=== PATIENT | female | born 1975 | race Caucasian/White ===

== ENCOUNTER 2017-03-19 07:11 | Inpatient (IN) | payer BC ==
[~2017-03-19] VITALS: Ht 165.1 cm; Wt 108.9 kg
[2017-03-19] MEDS ORDERED: MORPHINE SULFATE 4 MG/ML CPJ (NOT FOR IM USE) IV STA ×2 (15:37→19:51)
[2017-03-19] MEDS ORDERED: SODIUM CHLORIDE 0.9% 1,000 ML IV ONE (15:37)
[2017-03-19 16:11] LABS: BASOPHILS % 1.3 % (0.0-2.0); CHLORIDE 117 mEq/L (98-107); EOSINOPHILS % 5.4 % (0.0-5.0); HEMATOCRIT. 23.8 % (36.0-48.0); HEMOGLOBIN. 7.7 g/dL (12.0-16.0); INR 1.2; LYMPHOCYTES % 14.2 % (20.0-50.0); MEAN CORPUSCULAR HEMOGLOBIN 27.2 pg (28.0-32.0); MEAN CORPUSCULAR VOLUME 83.6 fL (81.0-99.0); MEAN PLATELET VOLUME 8.5 fl (7.4-10.4); MONOCYTES % 6.6 % (2.0-8.0); NEUTROPHILS % 72.5 % (40.0-76.0); PLATELET 144 x1000/uL (130-400); PROTHROMBIN TIME 12.1 sec (9.4-11.6); RED BLOOD CELL COUNT 2.84 mill/uL (4.2-5.4)
[2017-03-19 16:19] LABS: CARBON DIOXIDE 17 mEq/L (21-32)
[2017-03-19] MEDS ORDERED: MORPHINE SULFATE 10 MG/ML CPJ IV NR ×2 (16:45→20:22)
[2017-03-19 19:07] LABS: PHOSPHORUS 3.9 mg/dL (2.5-4.9)
[2017-03-19 19:11] LABS: BG CARBOXYHEMOGLOBIN 0.2 % (0.5-1.5); BG DEOXYHEMOGLOBIN 6.1 % (0.0-5.0); BG FRACTION INSPIRED OXYGEN 21; BG HCO3 ACT 16.1 mmol/L (22.0-26.0); BG OXYGEN SATURATION 93.9 % (92.0-98.5); BG OXYHEMOGLOBIN 93.7 % (94.0-97.0); BG PCO2 31.5 mmHg (35.0-45.0); BG PH 7.327 (7.350-7.450); BG PO2 76.9 mmHg (75.0-100.0); BG SAMPLE SITE LEFT BRACHIAL; BG TOTAL HEMOGLOBIN 7.4 g/dL (12.0-18.0); BG VENT MODE ROOM AIR
[2017-03-19] MEDS ORDERED: ACETAMINOPHEN 325MG TABLET PO PRN (20:30)
[2017-03-19] MEDS ORDERED: DOCUSATE SODIUM 100MG CAPSULE PO PRN (20:30)
[2017-03-19] MEDS ORDERED: PIPERACILLIN/TAZ 3.375G PREMIX 50 ML IV SCH (20:30)
[2017-03-19] MEDS ORDERED: MAGNESIUM/ALUMINUM HYDROXIDE/SIMETHICONE 30ML UDC PO PRN (20:30)
[2017-03-19] MEDS ORDERED: IPRATROPIUM/ALBUTEROL 0.5-3(2.5)MG/3ML NEB INH PRN (20:30)
[2017-03-19] MEDS ORDERED: CLONIDINE 0.1MG TABLET PO PRN (20:30)
[2017-03-19] MEDS ORDERED: ONDANSETRON HCL 4MG/2ML VIAL IV PRN (20:30)
[2017-03-19 21:08] LABS: CLARITY URINE CLEAR (CLEAR); COLOR URINE YELLOW (YELLOW); GLUCOSE URINE NEGATIVE (NEGATIVE); KETONES URINE NEGATIVE (NEGATIVE); LEUKOCYTE ESTERASE URINE TRACE (NEGATIVE); NITRITE URINE NEGATIVE (NEGATIVE); OCCULT BLOOD URINE TRACE (NEGATIVE); PROTEIN URINE 1+ (NEGATIVE); SPECIFIC GRAVITY URINE 1.022 (1.005-1.030); UROBILINOGEN URINE 0.2 E.U./dL (0.2-1.0)
[2017-03-19 21:29] LABS: *AMPHETAMINES SCREEN URINE NEGATIVE (NEGATIVE); *BARBITURATES SCREEN URINE NEGATIVE (NEGATIVE); *BENZODIAZEPINES SCREEN URINE NEGATIVE (NEGATIVE); *COCAINE SCREEN URINE NEGATIVE (NEGATIVE); CANNABINOID URINE SCREEN NEGATIVE (NEGATIVE); METHADONE URINE SCREEN NEGATIVE (NEGATIVE); OPIATES URINE SCREEN NEGATIVE (NEGATIVE); PHENCYCLIDINE URINE SCREEN NEGATIVE (NEGATIVE)
[2017-03-19 23:05] VITALS: BP 134/75
[2017-03-20] MEDS: SODIUM CHLORIDE 0.9% 1,000 ML IV SCH ×2 (02:05→16:15)
[2017-03-20] MEDS: HYDROCODONE/ACETAMINOPHEN 5/325MG TABLET PO PRN ×3 (02:05→17:41)
[2017-03-20 04:00] VITALS: BP 144/86
[2017-03-20] MEDS: PIPERACILLIN/TAZ 3.375G PREMIX 50 ML IV SCH ×2 (04:09→11:50)
[2017-03-20] MEDS ORDERED: LORAZEPAM 0.5MG TABLET PO PRN (05:00)
[2017-03-20 08:00] VITALS: BP 111/52
[2017-03-20 12:00] VITALS: BP 152/85
[2017-03-20] MEDS ORDERED: HYDR4TAB4 PO (12:08)
[2017-03-20] MEDS ORDERED: METO25TA6 PO (12:08)
[2017-03-20] MEDS ORDERED: HYDR200T PO (12:08)
[2017-03-20] MEDS ORDERED: PANT40TA4 PO (12:08)
[2017-03-20] MEDS ORDERED: PARO-41 PO (12:08)
[2017-03-20] MEDS ORDERED: LEVE500T19 PO (12:08)
[2017-03-20] MEDS ORDERED: [UNRECOGNIZED DRUG - CODE] SQ (12:08)
[2017-03-20] MEDS ORDERED: ONDA8TAB6 PO (12:08)
[2017-03-20] MEDS ORDERED: COLL30OI TP (12:08)
[2017-03-20] MEDS ORDERED: TEMA15CA PO (12:08)
[2017-03-20] MEDS ORDERED: CLON0.1T PO (12:08)
[2017-03-20] MEDS ORDERED: NIFE60TA64 PO (12:08)
[2017-03-20] MEDS ORDERED: LORA0.5T2 PO (12:08)
[2017-03-20] MEDS ORDERED: PENT400T2 PO ×2 (12:08)
[2017-03-20] MEDS ORDERED: PENTOXIFYLLINE 400MG TABLET PO SCH (12:15)
[2017-03-20] MEDS ORDERED: HYDROXYCHLOROQUINE SULFATE 200MG TABLET PO SCH (12:15)
[2017-03-20] MEDS ORDERED: NIFEDIPINE XL 60MG TAB PO SCH (12:15)
[2017-03-20] MEDS ORDERED: HYDROMORPHONE HCL 4MG TABLET PO SCH ×2 (12:15→18:00)
[2017-03-20] MEDS ORDERED: PAROXETINE HCL 20MG TABLET PO SCH (12:15)
[2017-03-20] MEDS ORDERED: METOPROLOL TARTRATE 25MG TABLET PO SCH (12:15)
[2017-03-20] MEDS ORDERED: LEVETIRACETAM 500MG TABLET PO SCH (12:15)
[2017-03-20] MEDS ORDERED: PANTOPRAZOLE 40MG DR TABLET PO SCH (12:15)
[2017-03-20] MEDS ORDERED: ONDANSETRON HCL 4MG TABLET PO SCH (12:30)
[2017-03-20] MEDS ORDERED: DIPHENHYDRAMINE 25MG CAPSULE PO PRN (13:00)
[2017-03-20] MEDS: LORAZEPAM 0.5MG TABLET PO SCH ×2 (13:16→16:16)
[2017-03-20] MEDS ORDERED: ASPIRIN 81MG TABLET PO SCH (13:30)
[2017-03-20] MEDS ORDERED: CITRIC ACID/SODIUM CITRATE SOLN 30ML UDC PO SCH (13:30)
[2017-03-20 16:00] VITALS: BP 111/81
[2017-03-20 17:41] VITALS: BP 111/81
[2017-03-20] MEDS ORDERED: HYDROMORPHONE HCL 4MG TABLET PO PRN (18:00)
[2017-03-20] MEDS ORDERED: CLONIDINE 0.1MG TABLET PO SCH (21:00)
[2017-03-20] MEDS ORDERED: FONDAPARINUX SODIUM SQ SCH (21:00)
[2017-03-20] MEDS ORDERED: TEMAZEPAM 15MG CAPSULE PO SCH (21:00)
[2017-03-22 06:12] LABS: COMPLEMENT C3 36 mg/dL (82-167)
== END 2017-03-20 18:15 | disposition left against medical advice (07) | DRG 683 ==
LOC: ER 09:08 → EDBEDREQTM 19:36 → EDBEDREQ 19:36 → 5WST 19:36 → ENRESERV 19:55 → UNDODISIN 23:10
PROVIDERS: ADMIT Internal Medicine; ATTEND Internal Medicine
DX: N17.9 Acute kidney failure, unspecified (principal); D68.61 Antiphospholipid syndrome; E87.2 Acidosis; D64.9 Anemia, unspecified; M32.9 Systemic lupus erythematosus, unspecified; I10 Essential (primary) hypertension; Z74.01 Bed confinement status; Z86.718 Personal history of other venous thrombosis and embolism; Z90.710 Acquired absence of both cervix and uterus; Z90.49 Acquired absence of other specified parts of digestive tract; Z88.0 Allergy status to penicillin; Z88.8 Allergy status to other drugs, medicaments and biological substances; Z79.899 Other long term (current) drug therapy
CPT/HCPCS: 36415; 36600; 71010; 80048; 80053; 80305; 81001; 82375; 82805; 83735; 84100; 85025; 85610; 85651; 86140; 86160; 87040; 87070; 87205; 93970; 96374; 96376; 99285; C1893; J2270; J2543; J7030; Q0162; Q0163

== ENCOUNTER 2017-04-18 18:11 | Inpatient (IN) | payer BC ==
[~2017-04-18] VITALS: Ht 165.1 cm; Wt 106.1 kg
[~2017-04-18 18:11] MED LIST: CLON0.1T PO; COLL30OI TP; HYDR200T PO; HYDR4TAB4 PO; LEVE500T19 PO; LORA0.5T2 PO; METO25TA6 PO; NIFE60TA64 PO; ONDA8TAB6 PO; PANT40TA4 PO; PARO-41 PO; PENT400T2 PO; TEMA15CA PO; [UNRECOGNIZED DRUG - CODE] SQ
[2017-04-18] MEDS ORDERED: ALTEPLASE IV STA (19:13)
[2017-04-18] MEDS ORDERED: ALTEPLASE 100MG/VIAL IV STA (19:13)
[2017-04-18 19:35] LABS: BASOPHILS % 1.4 % (0.0-2.0); EOSINOPHILS % 5.3 % (0.0-5.0); HEMATOCRIT. 27.6 % (36.0-48.0); HEMOGLOBIN. 9.1 g/dL (12.0-16.0); LYMPHOCYTES % 15.8 % (20.0-50.0); MEAN CORPUSCULAR HEMOGLOBIN 27.2 pg (28.0-32.0); MEAN CORPUSCULAR VOLUME 82.4 fL (81.0-99.0); MEAN PLATELET VOLUME 8.3 fl (7.4-10.4); MONOCYTES % 9.5 % (2.0-8.0); PLATELET 123 x1000/uL (130-400); RED BLOOD CELL COUNT 3.35 mill/uL (4.2-5.4); RED CELL DISTRIBUTION WIDTH 16.4 % (11.6-14.6)
[2017-04-18 19:41] LABS: CHLORIDE 110 mEq/L (98-107)
[2017-04-18] MEDS ORDERED: ASPIRIN 325MG EC TABLET PO ONE (19:45)
[2017-04-18 19:46] LABS: CARBON DIOXIDE 23 mEq/L (21-32)
[2017-04-18 19:50] LABS: AMMONIA < 25 uMol/L (<32); ETHANOL BLOOD < 10 mg/dL
[2017-04-18 19:53] LABS: TROPONIN I 0.19 ng/mL (0.00-0.04)
[2017-04-18 20:42] LABS: *AMPHETAMINES SCREEN URINE NEGATIVE (NEGATIVE); *BARBITURATES SCREEN URINE NEGATIVE (NEGATIVE); *COCAINE SCREEN URINE NEGATIVE (NEGATIVE); CANNABINOID URINE SCREEN NEGATIVE (NEGATIVE); METHADONE URINE SCREEN NEGATIVE (NEGATIVE); PHENCYCLIDINE URINE SCREEN NEGATIVE (NEGATIVE)
[2017-04-18 20:45] LABS: *BENZODIAZEPINES SCREEN URINE PRESUMTIVE POSITIVE (NEGATIVE); OPIATES URINE SCREEN PRESUMTIVE POSITIVE (NEGATIVE)
[2017-04-18] MEDS ORDERED: ONDANSETRON HCL 4MG/2ML VIAL IV PRN (22:45)
[2017-04-18] MEDS ORDERED: IPRATROPIUM/ALBUTEROL 0.5-3(2.5)MG/3ML NEB INH PRN (22:45)
[2017-04-18] MEDS ORDERED: HYDROCODONE/ACETAMINOPHEN 5/325MG TABLET PO PRN (22:45)
[2017-04-18] MEDS ORDERED: ACETAMINOPHEN 325MG TABLET PO PRN (22:45)
[2017-04-18] MEDS ORDERED: MAGNESIUM/ALUMINUM HYDROXIDE/SIMETHICONE 30ML UDC PO PRN (22:45)
[2017-04-18] MEDS ORDERED: GUAIFENESIN 200MG/10ML SUGAR FREE UDC PO PRN (22:45)
[2017-04-18] MEDS ORDERED: CLONIDINE 0.1MG TABLET PO PRN (22:45)
[2017-04-18] MEDS ORDERED: ENOXAPARIN 40MG/0.4ML SYR SUBCUT SCH (22:45)
[2017-04-18 23:00] VITALS: BP 132/74
[2017-04-18] MEDS ORDERED: NA PHOS,M-B/NA PHOS,DI-BA ENEMA 118ML PR PRN (23:00)
[2017-04-19] VITALS: BP 132/74
[2017-04-19] MEDS ORDERED: LEVO500T89 PO (01:17)
[2017-04-19] MEDS ORDERED: ERGO500013 PO (01:19)
[2017-04-19] MEDS: SODIUM CHLORIDE 0.9% 1,000 ML IV SCH ×2 (02:23→20:41)
[2017-04-19 04:00] VITALS: BP 138/78
[2017-04-19] MEDS: PANTOPRAZOLE 40MG DR TABLET PO SCH (05:49)
[2017-04-19 07:17] LABS: CARBON DIOXIDE 24 mEq/L (21-32); HDL CHOLESTEROL 41 mg/dL (40-59); LDL CHOLESTEROL 98 mg/dL (5-100); TROPONIN I 0.12 ng/mL (0.00-0.04)
[2017-04-19 07:23] LABS: CHLORIDE 113 mEq/L (98-107)
[2017-04-19 07:24] LABS: BASOPHILS % 1.9 % (0.0-2.0); EOSINOPHILS % 6.4 % (0.0-5.0); HEMATOCRIT. 23.9 % (36.0-48.0); LYMPHOCYTES % 23.3 % (20.0-50.0); MEAN CORPUSCULAR HEMOGLOBIN 27.2 pg (28.0-32.0); MEAN CORPUSCULAR VOLUME 81.6 fL (81.0-99.0); MEAN PLATELET VOLUME 8.4 fl (7.4-10.4); MONOCYTES % 11.1 % (2.0-8.0); NEUTROPHILS % 57.3 % (40.0-76.0); PLATELET 118 x1000/uL (130-400); RED BLOOD CELL COUNT 2.93 mill/uL (4.2-5.4); RED CELL DISTRIBUTION WIDTH 16.7 % (11.6-14.6)
[2017-04-19 08:00] VITALS: BP 138/80
[2017-04-19] MEDS: HYDROXYCHLOROQUINE SULFATE 200MG TABLET PO SCH (09:54)
[2017-04-19] MEDS: METOPROLOL TARTRATE 25MG TABLET PO SCH ×2 (09:54→20:41)
[2017-04-19] MEDS: LEVETIRACETAM 250MG TABLET PO SCH ×2 (09:54→18:07)
[2017-04-19] MEDS: NIFEDIPINE XL 60MG TAB PO SCH (09:54)
[2017-04-19] MEDS: ASPIRIN 81MG EC TABLET PO SCH (09:55)
[2017-04-19] MEDS: PENTOXIFYLLINE 400MG TABLET PO SCH ×2 (09:58→18:07)
[2017-04-19] MEDS: LEVOFLOXACIN 250MG TABLET PO SCH (11:21)
[2017-04-19] MEDS: HYDROMORPHONE HCL/PF 2MG/ML CPJ IV PRN ×4 (11:23→22:44)
[2017-04-19 12:00] VITALS: BP_SYST 138; BP_SYST 146; BP_DIAS 80; BP_DIAS 90
[2017-04-19] MEDS: LORAZEPAM 0.5MG TABLET PO PRN (14:06)
[2017-04-19 16:00] VITALS: BP 131/77
[2017-04-19 16:55] LABS: CLARITY URINE TURBID (CLEAR); COLOR URINE YELLOW (YELLOW); GLUCOSE URINE NEGATIVE (NEGATIVE); KETONES URINE TRACE (NEGATIVE); LEUKOCYTE ESTERASE URINE NEGATIVE (NEGATIVE); NITRITE URINE NEGATIVE (NEGATIVE); OCCULT BLOOD URINE NEGATIVE (NEGATIVE); PROTEIN URINE 1+ (NEGATIVE); UROBILINOGEN URINE 0.2 E.U./dL (0.2-1.0)
[2017-04-19 20:00] VITALS: BP 146/82
[2017-04-19] MEDS: CLONIDINE 0.1MG TABLET PO SCH (20:42)
[2017-04-19] MEDS: TEMAZEPAM 15MG CAPSULE PO SCH (20:42)
[2017-04-19] MEDS: FONDAPARINUX SODIUM 7.5 MG/0.6 ML SQ SCH (20:42)
[2017-04-20] VITALS: BP_SYST 115; BP_SYST 126; BP_DIAS 40; BP_DIAS 65
[2017-04-20] MEDS: HYDROMORPHONE HCL/PF 2MG/ML CPJ IV PRN ×7 (00:57→22:06)
[2017-04-20 04:00] VITALS: BP 141/72
[2017-04-20] MEDS: PANTOPRAZOLE 40MG DR TABLET PO SCH (05:58)
[2017-04-20 07:27] LABS: BASOPHILS % 2.1 % (0.0-2.0); EOSINOPHILS % 7.6 % (0.0-5.0); HEMATOCRIT. 25.2 % (36.0-48.0); HEMOGLOBIN. 8.2 g/dL (12.0-16.0); LYMPHOCYTES % 22.7 % (20.0-50.0); MEAN CORPUSCULAR HEMOGLOBIN 26.5 pg (28.0-32.0); MEAN CORPUSCULAR VOLUME 81.5 fL (81.0-99.0); MEAN PLATELET VOLUME 8.3 fl (7.4-10.4); MONOCYTES % 8.7 % (2.0-8.0); NEUTROPHILS % 58.9 % (40.0-76.0); PLATELET 151 x1000/uL (130-400); RED CELL DISTRIBUTION WIDTH 16.3 % (11.6-14.6)
[2017-04-20 07:42] LABS: PHOSPHORUS 3.8 mg/dL (2.5-4.9)
[2017-04-20 08:00] VITALS: BP 126/68
[2017-04-20] MEDS: LEVETIRACETAM 250MG TABLET PO SCH ×2 (09:35→17:50)
[2017-04-20] MEDS: PENTOXIFYLLINE 400MG TABLET PO SCH ×2 (09:35→17:50)
[2017-04-20] MEDS: HYDROXYCHLOROQUINE SULFATE 200MG TABLET PO SCH (09:36)
[2017-04-20] MEDS: ASPIRIN 81MG EC TABLET PO SCH (09:36)
[2017-04-20] MEDS: METOPROLOL TARTRATE 25MG TABLET PO SCH ×2 (09:36→20:51)
[2017-04-20] MEDS: LEVOFLOXACIN 250MG TABLET PO SCH (11:20)
[2017-04-20] MEDS: NIFEDIPINE XL 60MG TAB PO SCH (12:05)
[2017-04-20] MEDS: LORAZEPAM 0.5MG TABLET PO PRN ×2 (12:10→18:50)
[2017-04-20 12:35] VITALS: BP 140/59
[2017-04-20 16:37] VITALS: BP 131/68
[2017-04-20] MEDS: SODIUM CHLORIDE 0.9% 1,000 ML IV SCH (17:51)
[2017-04-20] MEDS ORDERED: ERGOCALCIFEROL 50000UNITS CAPSULE PO SCH (18:00)
[2017-04-20 20:00] VITALS: BP 122/73
[2017-04-20] MEDS: CLONIDINE 0.1MG TABLET PO SCH (20:51)
[2017-04-20] MEDS: TEMAZEPAM 15MG CAPSULE PO SCH (20:51)
[2017-04-20] MEDS: FONDAPARINUX SODIUM 7.5 MG/0.6 ML SQ SCH (20:52)
[2017-04-20] MEDS: SILVER SULFADIAZINE 1% CREAM 50GM TOP SCH (20:56)
[2017-04-21] VITALS: BP 106/61
[2017-04-21] MEDS: HYDROMORPHONE HCL/PF 2MG/ML CPJ IV PRN ×7 (00:15→21:12)
[2017-04-21 04:00] VITALS: BP 130/65
[2017-04-21] MEDS: DIPHENHYDRAMINE 50MG/ML VIAL IV PRN ×2 (04:45→13:20)
[2017-04-21] MEDS: PANTOPRAZOLE 40MG DR TABLET PO SCH (06:06)
[2017-04-21 07:10] LABS: EOSINOPHILS % 7.9 % (0.0-5.0); HEMATOCRIT. 25.6 % (36.0-48.0); HEMOGLOBIN. 8.5 g/dL (12.0-16.0); LYMPHOCYTES % 21.8 % (20.0-50.0); MEAN CORPUSCULAR HEMOGLOBIN 27.2 pg (28.0-32.0); MEAN CORPUSCULAR VOLUME 81.5 fL (81.0-99.0); MEAN PLATELET VOLUME 8.1 fl (7.4-10.4); MONOCYTES % 9.7 % (2.0-8.0); NEUTROPHILS % 58.6 % (40.0-76.0); PLATELET 168 x1000/uL (130-400); RED BLOOD CELL COUNT 3.14 mill/uL (4.2-5.4); RED CELL DISTRIBUTION WIDTH 16.3 % (11.6-14.6)
[2017-04-21 08:22] VITALS: BP 133/74
[2017-04-21] MEDS: SILVER SULFADIAZINE 1% CREAM 50GM TOP SCH ×2 (09:00→14:12)
[2017-04-21] MEDS: NIFEDIPINE XL 60MG TAB PO SCH (09:17)
[2017-04-21] MEDS: ASPIRIN 81MG EC TABLET PO SCH (09:17)
[2017-04-21] MEDS: HYDROXYCHLOROQUINE SULFATE 200MG TABLET PO SCH (09:17)
[2017-04-21] MEDS: LEVETIRACETAM 250MG TABLET PO SCH ×2 (09:17→17:03)
[2017-04-21] MEDS: METOPROLOL TARTRATE 25MG TABLET PO SCH ×2 (09:18→20:52)
[2017-04-21] MEDS: DOCUSATE SODIUM 100MG CAPSULE PO PRN (09:18)
[2017-04-21] MEDS: LORAZEPAM 0.5MG TABLET PO PRN (09:27)
[2017-04-21] MEDS: PENTOXIFYLLINE 400MG TABLET PO SCH ×2 (11:39→17:03)
[2017-04-21] MEDS: LEVOFLOXACIN 250MG TABLET PO SCH (11:48)
[2017-04-21 12:15] VITALS: BP 138/78
[2017-04-21 16:54] VITALS: BP 135/78
[2017-04-21 20:00] VITALS: BP 110/56
[2017-04-21] MEDS: CLONIDINE 0.1MG TABLET PO SCH (20:51)
[2017-04-21] MEDS: FONDAPARINUX SODIUM 7.5 MG/0.6 ML SQ SCH (20:52)
[2017-04-21] MEDS: TEMAZEPAM 15MG CAPSULE PO SCH (22:19)
[2017-04-22] VITALS: BP 114/63
[2017-04-22] MEDS: DIPHENHYDRAMINE 50MG/ML VIAL IV PRN ×2 (00:05→17:50)
[2017-04-22] MEDS: HYDROMORPHONE HCL/PF 2MG/ML CPJ IV PRN ×7 (00:08→20:11)
[2017-04-22 04:00] VITALS: BP 141/81
[2017-04-22] MEDS: PANTOPRAZOLE 40MG DR TABLET PO SCH (06:41)
[2017-04-22 08:00] VITALS: BP 123/70
[2017-04-22] MEDS: METOPROLOL TARTRATE 25MG TABLET PO SCH ×2 (08:12→21:00)
[2017-04-22] MEDS: PENTOXIFYLLINE 400MG TABLET PO SCH ×2 (08:12→17:50)
[2017-04-22] MEDS: ASPIRIN 81MG EC TABLET PO SCH (08:13)
[2017-04-22] MEDS: LEVETIRACETAM 250MG TABLET PO SCH ×2 (08:13→17:50)
[2017-04-22] MEDS: HYDROXYCHLOROQUINE SULFATE 200MG TABLET PO SCH (08:14)
[2017-04-22 08:19] LABS: BASOPHILS % 2.2 % (0.0-2.0); HEMATOCRIT. 25.6 % (36.0-48.0); HEMOGLOBIN. 8.2 g/dL (12.0-16.0); LYMPHOCYTES % 23.9 % (20.0-50.0); MEAN CORPUSCULAR VOLUME 81.3 fL (81.0-99.0); MEAN PLATELET VOLUME 8.5 fl (7.4-10.4); MONOCYTES % 8.7 % (2.0-8.0); NEUTROPHILS % 55.2 % (40.0-76.0); PLATELET 178 x1000/uL (130-400); RED BLOOD CELL COUNT 3.15 mill/uL (4.2-5.4); RED CELL DISTRIBUTION WIDTH 16.2 % (11.6-14.6)
[2017-04-22] MEDS: AMLODIPINE 2.5MG TABLET PO SCH (08:23)
[2017-04-22] MEDS: SILVER SULFADIAZINE 1% CREAM 50GM TOP SCH (09:00)
[2017-04-22] MEDS: LORAZEPAM 0.5MG TABLET PO PRN (09:08)
[2017-04-22] MEDS: LEVOFLOXACIN 250MG TABLET PO SCH (10:52)
[2017-04-22 12:00] VITALS: BP 129/66
[2017-04-22 17:00] VITALS: BP 119/60
[2017-04-22] MEDS: TEMAZEPAM 15MG CAPSULE PO SCH (21:16)
[2017-04-22] MEDS: FONDAPARINUX SODIUM 7.5 MG/0.6 ML SQ SCH (21:17)
[2017-04-22 21:45] VITALS: BP 110/66
[2017-04-23] VITALS: BP 129/71
[2017-04-23] MEDS: HYDROMORPHONE HCL/PF 2MG/ML CPJ IV PRN ×8 (00:03→20:42)
[2017-04-23] MEDS: DIPHENHYDRAMINE 50MG/ML VIAL IV PRN ×3 (01:29→19:35)
[2017-04-23 04:00] VITALS: BP 123/60
[2017-04-23] MEDS: PANTOPRAZOLE 40MG DR TABLET PO SCH (06:31)
[2017-04-23 07:03] LABS: EOSINOPHILS % 10.1 % (0.0-5.0); HEMATOCRIT. 24.5 % (36.0-48.0); HEMOGLOBIN. 8.2 g/dL (12.0-16.0); LYMPHOCYTES % 26.4 % (20.0-50.0); MEAN CORPUSCULAR HEMOGLOBIN 26.7 pg (28.0-32.0); MEAN CORPUSCULAR VOLUME 80.1 fL (81.0-99.0); MEAN PLATELET VOLUME 9.2 fl (7.4-10.4); MONOCYTES % 8.5 % (2.0-8.0); PLATELET 168 x1000/uL (130-400); RED BLOOD CELL COUNT 3.06 mill/uL (4.2-5.4); RED CELL DISTRIBUTION WIDTH 16.1 % (11.6-14.6)
[2017-04-23 08:00] VITALS: BP 141/75
[2017-04-23] MEDS: PENTOXIFYLLINE 400MG TABLET PO SCH ×2 (08:25→17:32)
[2017-04-23] MEDS: HYDROXYCHLOROQUINE SULFATE 200MG TABLET PO SCH (08:25)
[2017-04-23] MEDS: LEVETIRACETAM 250MG TABLET PO SCH ×2 (08:25→17:32)
[2017-04-23] MEDS: ASPIRIN 81MG EC TABLET PO SCH (08:26)
[2017-04-23] MEDS: AMLODIPINE 2.5MG TABLET PO SCH (08:26)
[2017-04-23] MEDS: METOPROLOL TARTRATE 25MG TABLET PO SCH ×2 (08:27→20:36)
[2017-04-23] MEDS: LEVOFLOXACIN 250MG TABLET PO SCH (11:00)
[2017-04-23 12:00] VITALS: BP 116/63
[2017-04-23 13:29] LABS: PLATELET ESTIMATE NORMAL
[2017-04-23 16:00] VITALS: BP 123/56
[2017-04-23 20:00] VITALS: BP 125/61
[2017-04-23] MEDS: TEMAZEPAM 15MG CAPSULE PO SCH (20:36)
[2017-04-23] MEDS: FONDAPARINUX SODIUM 7.5 MG/0.6 ML SQ SCH (20:42)
[2017-04-24] VITALS: BP 120/67
[2017-04-24] MEDS: HYDROMORPHONE HCL/PF 2MG/ML CPJ IV PRN ×5 (00:09→12:15)
[2017-04-24 04:00] VITALS: BP 141/75
[2017-04-24 08:00] VITALS: BP 130/69
[2017-04-24] MEDS: SILVER SULFADIAZINE 1% CREAM 50GM TOP SCH ×2 (09:00→11:47)
[2017-04-24] MEDS: ASPIRIN 81MG EC TABLET PO SCH (09:08)
[2017-04-24] MEDS: HYDROXYCHLOROQUINE SULFATE 200MG TABLET PO SCH (09:08)
[2017-04-24] MEDS: PENTOXIFYLLINE 400MG TABLET PO SCH ×2 (09:08→17:25)
[2017-04-24] MEDS: LEVETIRACETAM 250MG TABLET PO SCH ×2 (09:08→17:25)
[2017-04-24] MEDS: DIPHENHYDRAMINE 50MG/ML VIAL IV PRN ×3 (09:10→20:09)
[2017-04-24] MEDS: FAMOTIDINE 20MG TABLET PO SCH ×2 (09:10→21:12)
[2017-04-24] MEDS: AMLODIPINE 2.5MG TABLET PO SCH (09:13)
[2017-04-24] MEDS: METOPROLOL TARTRATE 25MG TABLET PO SCH ×2 (09:14→21:12)
[2017-04-24 12:00] VITALS: BP 124/74
[2017-04-24 15:55] VITALS: BP 112/64
[2017-04-24] MEDS: HYDROCODONE/ACETAMINOPHEN 10/325MG TABLET PO PRN (19:05)
[2017-04-24 20:00] VITALS: BP 143/82
[2017-04-24] MEDS: FONDAPARINUX SODIUM 7.5 MG/0.6 ML SQ SCH (21:00)
[2017-04-24] MEDS: TEMAZEPAM 15MG CAPSULE PO SCH (21:12)
[2017-04-24] MEDS: DOCUSATE SODIUM 100MG CAPSULE PO PRN (21:44)
[2017-04-25] VITALS (8 sets, daily range): BP systolic 124–159; BP diastolic 64–79
[2017-04-25] MEDS: DIPHENHYDRAMINE 50MG/ML VIAL IV PRN ×4 (03:19→20:00)
[2017-04-25] MEDS: HYDROCODONE/ACETAMINOPHEN 10/325MG TABLET PO PRN ×3 (04:36→20:00)
[2017-04-25] MEDS: ASPIRIN 81MG EC TABLET PO SCH (09:56)
[2017-04-25] MEDS: PENTOXIFYLLINE 400MG TABLET PO SCH ×2 (09:56→17:08)
[2017-04-25] MEDS: DOCUSATE SODIUM 100MG CAPSULE PO PRN (09:56)
[2017-04-25] MEDS: LEVETIRACETAM 250MG TABLET PO SCH ×2 (09:56→17:08)
[2017-04-25] MEDS: HYDROXYCHLOROQUINE SULFATE 200MG TABLET PO SCH (09:56)
[2017-04-25] MEDS: FAMOTIDINE 20MG TABLET PO SCH ×2 (09:56→19:59)
[2017-04-25] MEDS: AMLODIPINE 2.5MG TABLET PO SCH (09:58)
[2017-04-25] MEDS: METOPROLOL TARTRATE 25MG TABLET PO SCH ×2 (09:58→19:59)
[2017-04-25 10:31] LABS: BASOPHILS % 1.2 % (0.0-2.0); EOSINOPHILS % 7.4 % (0.0-5.0); HEMATOCRIT. 28.6 % (36.0-48.0); HEMOGLOBIN. 9.1 g/dL (12.0-16.0); LYMPHOCYTES % 9.7 % (20.0-50.0); MEAN CORPUSCULAR HEMOGLOBIN 25.9 pg (28.0-32.0); MEAN CORPUSCULAR VOLUME 81.2 fL (81.0-99.0); MEAN PLATELET VOLUME 8.5 fl (7.4-10.4); MONOCYTES % 4.8 % (2.0-8.0); NEUTROPHILS % 76.9 % (40.0-76.0); PLATELET 199 x1000/uL (130-400); RED BLOOD CELL COUNT 3.52 mill/uL (4.2-5.4); RED CELL DISTRIBUTION WIDTH 16.5 % (11.6-14.6)
[2017-04-25 13:12] LABS: ANTI-NUCLEAR ANTIBODIES DIRECT Positive (Negative)
[2017-04-25 14:23] LABS: ANTI-CARDIOLIPIN AB IGA 9 APL U/mL (0-11); ANTI-CARDIOLIPIN AB IGG 66 GPL U/mL (0-14); ANTI-CARDIOLIPIN AB IGM 18 MPL U/mL (0-12)
[2017-04-25] MEDS: SILVER SULFADIAZINE 1% CREAM 50GM TOP SCH (14:56)
[2017-04-25] MEDS ORDERED: NA PHOS,M-B/NA PHOS,DI-BA ENEMA 118ML PR NR (16:15)
[2017-04-25] MEDS ORDERED: DOCUSATE SODIUM 100MG CAPSULE PO SCH (17:00)
[2017-04-25] MEDS: LACTULOSE 20G/30ML UDC PO SCH ×2 (17:08→21:00)
[2017-04-25 19:12] LABS: DRVVT LA 93.7 sec (0.0-47.0); PTT-LA 82.5 sec (0.0-51.9)
[2017-04-25] MEDS: FONDAPARINUX SODIUM 7.5 MG/0.6 ML SQ SCH (21:00)
[2017-04-25] MEDS ORDERED: POLYETHYLENE GLYCOL 3350 (17GM) 1 DOSE PACK PO SCH (21:00)
[2017-04-26 08:19] LABS: DRVVT MIX LA 66.1 sec (0.0-47.0); HEXAGONAL PHASE PHOSPHOLIPID 42 sec (0-11); LUPUS ANTICOAG INTERPRETATION Comment: (.); PTT-LA MIX 74.4 sec (0.0-48.9)
== END 2017-04-25 21:40 | disposition home or self-care (01) | DRG 64 ==
LOC: ER 18:11 → ENRESERV 21:39 → EDBEDREQTM 22:24 → EDBEDREQ 22:24 → 5WST 04-19 00:32
PROVIDERS: ADMIT Internal Medicine; ATTEND Internal Medicine
DX: I63.531 Cerebral infarction due to unspecified occlusion or stenosis of right posterior cerebral artery (principal); N17.0 Acute kidney failure with tubular necrosis; E43 Unspecified severe protein-calorie malnutrition; G93.40 Encephalopathy, unspecified; I27.20 Pulmonary hypertension, unspecified; M32.9 Systemic lupus erythematosus, unspecified; E88.09 Other disorders of plasma-protein metabolism, not elsewhere classified; N18.5 Chronic kidney disease, stage 5; H53.461 Homonymous bilateral field defects, right side; I69.354 Hemiplegia and hemiparesis following cerebral infarction affecting left non-dominant side; Z68.1 Body mass index [BMI] 19.9 or less, adult; L97.929 Non-pressure chronic ulcer of unspecified part of left lower leg with unspecified severity; L97.919 Non-pressure chronic ulcer of unspecified part of right lower leg with unspecified severity; D64.9 Anemia, unspecified; E66.9 Obesity, unspecified; H53.462 Homonymous bilateral field defects, left side; I13.10 Hypertensive heart and chronic kidney disease without heart failure, with stage 1 through stage 4 chronic kidney disease, or unspecified chronic kidney disease; G40.909 Epilepsy, unspecified, not intractable, without status epilepticus; I25.10 Atherosclerotic heart disease of native coronary artery without angina pectoris; R29.810 Facial weakness; Z86.718 Personal history of other venous thrombosis and embolism; Z88.0 Allergy status to penicillin; Z90.710 Acquired absence of both cervix and uterus; Z88.8 Allergy status to other drugs, medicaments and biological substances; Z91.040 Latex allergy status
CPT/HCPCS: 36415; 70450; 70544; 70553; 71010; 76770; 80048; 80053; 80061; 80305; 80307; 80329; 81001; 82140; 82962; 83721; 83735; 83880; 84100; 84439; 84443; 84484; 85025; 85613; 85732; 86038; 86147; 87070; 87077; 87186; 87205; 92523; 92610; 93005; 93306; 93880; 97110; 97112; 97163; 97166; 97530; 97532; 99285; G0482; J1170; J1200; J2405; J2997; J7030; A4315

== ENCOUNTER 2017-07-29 16:09 | Inpatient (IN) | payer BC, MEDICAID ==
[~2017-07-29] VITALS: Ht 162.6 cm; Wt 99.8 kg
[~2017-07-29 16:09] MED LIST changes: -COLL30OI TP; +ERGO500013 PO; -HYDR4TAB4 PO; -PARO-41 PO
[2017-07-29 17:19] LABS: BASOPHILS % 1.1 % (0.0-2.0); EOSINOPHILS % 3.7 % (0.0-5.0); HEMATOCRIT. 32.4 % (36.0-48.0); HEMOGLOBIN. 10.8 g/dL (12.0-16.0); LYMPHOCYTES % 22.6 % (20.0-50.0); MEAN CORPUSCULAR HEMOGLOBIN 28.7 pg (28.0-32.0); MEAN CORPUSCULAR VOLUME 86.2 fL (81.0-99.0); MEAN PLATELET VOLUME 8.3 fl (7.4-10.4); MONOCYTES % 9.2 % (2.0-8.0); NEUTROPHILS % 63.4 % (40.0-76.0); PLATELET 143 x1000/uL (130-400); RED BLOOD CELL COUNT 3.76 mill/uL (4.2-5.4); RED CELL DISTRIBUTION WIDTH 16.9 % (11.6-14.6)
[2017-07-29 17:27] LABS: PROTHROMBIN TIME 10.7 sec (9.4-11.6)
[2017-07-29 17:30] LABS: CHLORIDE 112 mEq/L (98-107); ETHANOL BLOOD < 10 mg/dL
[2017-07-29 18:11] LABS: KETONES URINE NEGATIVE (NEGATIVE); LEUKOCYTE ESTERASE URINE NEGATIVE (NEGATIVE); NITRITE URINE NEGATIVE (NEGATIVE); OCCULT BLOOD URINE NEGATIVE (NEGATIVE); PH URINE 5.5 (4.5-8.0); PROTEIN URINE 1+ (NEGATIVE); SPECIFIC GRAVITY URINE 1.015 (1.005-1.030); UROBILINOGEN URINE 0.2 E.U./dL (0.2-1.0)
[2017-07-29 18:13] LABS: CLARITY URINE CLEAR (CLEAR); COLOR URINE YELLOW (YELLOW)
[2017-07-29 18:21] LABS: *AMPHETAMINES SCREEN URINE NEGATIVE (NEGATIVE); *BARBITURATES SCREEN URINE NEGATIVE (NEGATIVE); *BENZODIAZEPINES SCREEN URINE NEGATIVE (NEGATIVE); *COCAINE SCREEN URINE NEGATIVE (NEGATIVE); CANNABINOID URINE SCREEN NEGATIVE (NEGATIVE); METHADONE URINE SCREEN NEGATIVE (NEGATIVE); OPIATES URINE SCREEN NEGATIVE (NEGATIVE); PHENCYCLIDINE URINE SCREEN NEGATIVE (NEGATIVE)
[2017-07-29] MEDS ORDERED: ASPIRIN 81MG TABLET PO ONE (18:30)
[2017-07-29] MEDS ORDERED: IPRATROPIUM/ALBUTEROL 0.5-3(2.5)MG/3ML NEB INH PRN (19:45)
[2017-07-29] MEDS ORDERED: DIPHENHYDRAMINE 50MG/ML VIAL IV PRN (19:45)
[2017-07-29] MEDS ORDERED: CLONIDINE 0.1MG TABLET PO PRN (19:45)
[2017-07-29] MEDS ORDERED: ACETAMINOPHEN 325MG TABLET PO PRN (19:45)
[2017-07-29] MEDS ORDERED: TRAMADOL 50MG TABLET PO PRN (19:45)
[2017-07-29] MEDS ORDERED: GUAIFENESIN 200MG/10ML SUGAR FREE UDC PO PRN (19:45)
[2017-07-29] MEDS ORDERED: MAGNESIUM/ALUMINUM HYDROXIDE/SIMETHICONE 30ML UDC PO PRN (19:45)
[2017-07-29] MEDS ORDERED: ONDANSETRON HCL 4MG/2ML VIAL IV PRN (19:45)
[2017-07-29] MEDS ORDERED: DEXTROSE 50% WATER 50ML SYRINGE IV PRN (19:45)
[2017-07-29] MEDS ORDERED: NA PHOS,M-B/NA PHOS,DI-BA ENEMA 118ML PR PRN (19:45)
[2017-07-29] MEDS ORDERED: DOCUSATE SODIUM 100MG CAPSULE PO PRN (19:45)
[2017-07-29] MEDS ORDERED: NITROGLYCERIN 0.4MG TABLET SL SL PRN (19:45)
[2017-07-30] VITALS (8 sets, daily range): BP systolic 126–163; BP diastolic 55–96
[2017-07-30] MEDS: SODIUM CHLORIDE 0.9% 1,000 ML IV SCH ×2 (01:36→14:56)
[2017-07-30] MEDS ORDERED: LEVOFLOXACIN 500MG PREMIX 100 ML IV SCH (03:00)
[2017-07-30] MEDS: BLOOD SUGAR DIAGNOSTIC STRIP TEST SCH ×4 (07:40→21:00)
[2017-07-30] MEDS: INSULIN LISPRO 100 UNITS/ML SUBCUT SCH ×4 (08:10→21:00)
[2017-07-30] MEDS ORDERED: ENOXAPARIN 100MG/ML SYR SUBCUT SCH (09:00)
[2017-07-30] MEDS: CLOPIDOGREL 75MG TABLET PO SCH (09:40)
[2017-07-30] MEDS: LEVETIRACETAM 500MG TABLET PO SCH ×2 (09:40→21:52)
[2017-07-30] MEDS: FAMOTIDINE 20MG/2ML VIAL IV SCH (09:40)
[2017-07-30] MEDS: HYDROXYCHLOROQUINE SULFATE 200MG TABLET PO SCH (09:43)
[2017-07-30] MEDS ORDERED: MORPHINE SULFATE 2 MG/ML CPJ (NOT FOR IM USE) IV PRN (11:45)
[2017-07-30] MEDS: MORPHINE SULFATE 4 MG/ML CPJ (NOT FOR IM USE) IV PRN ×2 (18:24→23:30)
[2017-07-30 18:30] LABS: T4 FREE 0.86 ng/dL (0.76-1.46)
[2017-07-30 18:54] LABS: FOLIC ACID (FOLATE) SERUM 3.2 ng/mL (>5.38)
[2017-07-30] MEDS: ATORVASTATIN CALCIUM 20MG TABLET PO SCH (21:52)
[2017-07-30] MEDS: ZOLPIDEM TARTRATE 5MG TABLET PO PRN (22:10)
[2017-07-31] VITALS: BP 145/80
[2017-07-31] MEDS: [UNRECOGNIZED DRUG - OTHER] SUBCUT SCH ×2 (00:04→21:51)
[2017-07-31 04:00] VITALS: BP 138/94
[2017-07-31] MEDS: LEVOFLOXACIN 250MG PREMIX 50 ML IV SCH (04:18)
[2017-07-31] MEDS: MORPHINE SULFATE 4 MG/ML CPJ (NOT FOR IM USE) IV PRN ×4 (05:47→21:18)
[2017-07-31] MEDS: SODIUM CHLORIDE 0.9% 1,000 ML IV SCH ×2 (05:48→17:36)
[2017-07-31 06:00] VITALS: BP 132/86
[2017-07-31 08:00] VITALS: BP 153/80
[2017-07-31] MEDS: INSULIN LISPRO 100 UNITS/ML SUBCUT SCH ×4 (08:10→21:00)
[2017-07-31] MEDS: BLOOD SUGAR DIAGNOSTIC STRIP TEST SCH ×4 (08:27→21:50)
[2017-07-31] MEDS: FAMOTIDINE 20MG/2ML VIAL IV SCH (08:50)
[2017-07-31] MEDS: HYDROXYCHLOROQUINE SULFATE 200MG TABLET PO SCH (08:50)
[2017-07-31] MEDS: CLOPIDOGREL 75MG TABLET PO SCH (08:50)
[2017-07-31] MEDS: LEVETIRACETAM 500MG TABLET PO SCH ×2 (08:50→21:50)
[2017-07-31 16:00] VITALS: BP 148/92
[2017-07-31 20:00] VITALS: BP 138/90
[2017-07-31] MEDS: ATORVASTATIN CALCIUM 20MG TABLET PO SCH (21:50)
[2017-07-31] MEDS: ZOLPIDEM TARTRATE 5MG TABLET PO PRN (22:28)
[2017-08-01] VITALS (7 sets, daily range): BP systolic 116–158; BP diastolic 75–93
[2017-08-01] MEDS: LEVOFLOXACIN 250MG PREMIX 50 ML IV SCH ×2 (02:17→02:24)
[2017-08-01] MEDS: MORPHINE SULFATE 4 MG/ML CPJ (NOT FOR IM USE) IV PRN ×6 (02:17→22:40)
[2017-08-01] MEDS: SODIUM CHLORIDE 0.9% 1,000 ML IV SCH ×2 (05:58→20:16)
[2017-08-01] MEDS: BLOOD SUGAR DIAGNOSTIC STRIP TEST SCH ×4 (06:40→21:00)
[2017-08-01] MEDS: INSULIN LISPRO 100 UNITS/ML SUBCUT SCH ×4 (07:54→21:00)
[2017-08-01] MEDS: LEVETIRACETAM 500MG TABLET PO SCH ×2 (08:59→20:58)
[2017-08-01] MEDS: CLOPIDOGREL 75MG TABLET PO SCH (08:59)
[2017-08-01] MEDS: FAMOTIDINE 20MG/2ML VIAL IV SCH (08:59)
[2017-08-01] MEDS: HYDROXYCHLOROQUINE SULFATE 200MG TABLET PO SCH (08:59)
[2017-08-01] MEDS: FOLIC ACID 1MG TABLET PO SCH (18:10)
[2017-08-01] MEDS: ATORVASTATIN CALCIUM 20MG TABLET PO SCH (20:59)
[2017-08-01] MEDS: [UNRECOGNIZED DRUG - OTHER] SUBCUT SCH (21:14)
[2017-08-01] MEDS: ZOLPIDEM TARTRATE 5MG TABLET PO PRN (21:22)
[2017-08-02] MEDS: LEVOFLOXACIN 250MG PREMIX 50 ML IV SCH (03:00)
[2017-08-02] MEDS: MORPHINE SULFATE 4 MG/ML CPJ (NOT FOR IM USE) IV PRN ×4 (03:39→20:02)
[2017-08-02 04:00] VITALS: BP 121/70
[2017-08-02 07:03] LABS: EOSINOPHILS % 5.5 % (0.0-5.0); HEMATOCRIT. 27.2 % (36.0-48.0); HEMOGLOBIN. 9.2 g/dL (12.0-16.0); LYMPHOCYTES % 26.6 % (20.0-50.0); MEAN CORPUSCULAR HEMOGLOBIN 28.7 pg (28.0-32.0); MEAN CORPUSCULAR VOLUME 85.1 fL (81.0-99.0); MEAN PLATELET VOLUME 8.7 fl (7.4-10.4); MONOCYTES % 9.4 % (2.0-8.0); NEUTROPHILS % 57.5 % (40.0-76.0); PLATELET 128 x1000/uL (130-400); RED CELL DISTRIBUTION WIDTH 16.6 % (11.6-14.6)
[2017-08-02] MEDS: INSULIN LISPRO 100 UNITS/ML SUBCUT SCH ×4 (07:42→21:00)
[2017-08-02] MEDS: BLOOD SUGAR DIAGNOSTIC STRIP TEST SCH ×4 (07:42→20:37)
[2017-08-02 07:54] LABS: CHLORIDE 110 mEq/L (98-107)
[2017-08-02 08:30] VITALS: BP 128/70
[2017-08-02] MEDS: LEVETIRACETAM 500MG TABLET PO SCH ×3 (09:00→21:34)
[2017-08-02] MEDS: CLOPIDOGREL 75MG TABLET PO SCH ×2 (09:00→10:18)
[2017-08-02] MEDS: HYDROXYCHLOROQUINE SULFATE 200MG TABLET PO SCH ×2 (09:00→10:18)
[2017-08-02] MEDS: FOLIC ACID 1MG TABLET PO SCH ×2 (09:00→10:18)
[2017-08-02] MEDS: FAMOTIDINE 20MG/2ML VIAL IV SCH ×2 (09:00→10:18)
[2017-08-02] MEDS: SODIUM CHLORIDE 0.9% 1,000 ML IV SCH ×2 (09:36→22:56)
[2017-08-02 12:00] VITALS: BP 132/69
[2017-08-02 13:15] LABS: DILUTE RUSSELL VIPER VENOM TME 75.8 sec (0.0-47.0)
[2017-08-02 16:00] VITALS: BP 133/80
[2017-08-02 19:59] VITALS: BP 148/94
[2017-08-02] MEDS: [UNRECOGNIZED DRUG - OTHER] SUBCUT SCH (21:00)
[2017-08-02] MEDS: ATORVASTATIN CALCIUM 20MG TABLET PO SCH (21:34)
[2017-08-02] MEDS: ZOLPIDEM TARTRATE 5MG TABLET PO PRN (22:11)
[2017-08-02 23:36] VITALS: BP 151/95
[2017-08-03 04:00] VITALS: BP 125/65
[2017-08-03] MEDS: MORPHINE SULFATE 4 MG/ML CPJ (NOT FOR IM USE) IV PRN ×3 (04:21→17:00)
[2017-08-03 06:59] LABS: BASOPHILS % 1.3 % (0.0-2.0); EOSINOPHILS % 5.6 % (0.0-5.0); HEMATOCRIT. 27.4 % (36.0-48.0); HEMOGLOBIN. 9.6 g/dL (12.0-16.0); LYMPHOCYTES % 22.6 % (20.0-50.0); MEAN CORPUSCULAR HEMOGLOBIN 30.2 pg (28.0-32.0); MEAN CORPUSCULAR VOLUME 86.2 fL (81.0-99.0); MEAN PLATELET VOLUME 8.5 fl (7.4-10.4); MONOCYTES % 8.6 % (2.0-8.0); NEUTROPHILS % 61.9 % (40.0-76.0); PLATELET 138 x1000/uL (130-400); RED BLOOD CELL COUNT 3.18 mill/uL (4.2-5.4); RED CELL DISTRIBUTION WIDTH 16.5 % (11.6-14.6)
[2017-08-03] MEDS: BLOOD SUGAR DIAGNOSTIC STRIP TEST SCH ×3 (07:00→17:45)
[2017-08-03 07:31] LABS: CHLORIDE 111 mEq/L (98-107)
[2017-08-03 08:00] VITALS: BP 137/86
[2017-08-03] MEDS: INSULIN LISPRO 100 UNITS/ML SUBCUT SCH ×3 (08:10→17:45)
[2017-08-03] MEDS: LEVETIRACETAM 500MG TABLET PO SCH (08:12)
[2017-08-03] MEDS: FAMOTIDINE 20MG/2ML VIAL IV SCH (08:12)
[2017-08-03] MEDS: HYDROXYCHLOROQUINE SULFATE 200MG TABLET PO SCH (08:12)
[2017-08-03] MEDS: FOLIC ACID 1MG TABLET PO SCH (08:12)
[2017-08-03] MEDS: CLOPIDOGREL 75MG TABLET PO SCH (08:13)
[2017-08-03] MEDS ORDERED: TETRACAINE/BENZOCAINE/BUTAMBEN 20 GM SPRAY MM ONE ×2 (10:05→10:06)
[2017-08-03] MEDS ORDERED: LIDOCAINE HCL 2% JELLY 5ML ONE (10:06)
[2017-08-03] MEDS ORDERED: FENTANYL CITRATE/PF 50MCG/ML 2ML VIAL ONE (10:12)
[2017-08-03] MEDS ORDERED: MIDAZOLAM HCL 5 MG/5 ML VIAL ONE (10:12)
[2017-08-03] MEDS ORDERED: LEVOFLOXACIN 250MG TABLET PO SCH (11:00)
[2017-08-03 12:00] VITALS: BP 155/90
[2017-08-03] MEDS: SODIUM CHLORIDE 0.9% 1,000 ML IV SCH (12:16)
[2017-08-03 13:23] VITALS: BP 155/90
[2017-08-03 16:00] VITALS: BP 159/97
[2017-08-03 17:00] VITALS: BP 159/97
[2017-08-04 04:14] LABS: ANTI-CARDIOLIPIN AB IGA < 9 APL U/mL (0-11); ANTI-CARDIOLIPIN AB IGG 75 GPL U/mL (0-14); ANTI-CARDIOLIPIN AB IGM 13 MPL U/mL (0-12)
== END 2017-08-03 18:39 | DRG 65 ==
LOC: ER 16:20 → 7WST 19:09 → EDBEDREQ 19:14 → ENRESERV 21:40
PROVIDERS: ADMIT Internal Medicine; ATTEND Internal Medicine
DX: I63.9 Cerebral infarction, unspecified (principal); N17.9 Acute kidney failure, unspecified; D68.61 Antiphospholipid syndrome; E44.0 Moderate protein-calorie malnutrition; I08.1 Rheumatic disorders of both mitral and tricuspid valves; G81.91 Hemiplegia, unspecified affecting right dominant side; M32.9 Systemic lupus erythematosus, unspecified; N39.0 Urinary tract infection, site not specified; D64.9 Anemia, unspecified; G40.909 Epilepsy, unspecified, not intractable, without status epilepticus; E11.9 Type 2 diabetes mellitus without complications; I10 Essential (primary) hypertension; E78.00 Pure hypercholesterolemia, unspecified; E53.8 Deficiency of other specified B group vitamins; Z88.0 Allergy status to penicillin; Z88.8 Allergy status to other drugs, medicaments and biological substances; Z91.040 Latex allergy status; Z79.899 Other long term (current) drug therapy; Z90.710 Acquired absence of both cervix and uterus; Z68.37 Body mass index [BMI] 37.0-37.9, adult; Z86.718 Personal history of other venous thrombosis and embolism
CPT/HCPCS: 36415; 70450; 70544; 70551; 71045; 80053; 80061; 80305; 81003; 81400; 81403; 81407; 81479; 82607; 82746; 82962; 83036; 83605; 83735; 84439; 84443; 84481; 85025; 85300; 85303; 85306; 85610; 85613; 86147; 92523; 92610; 93005; 93306; 93312; 93880; 93970; 97116; 97162; 97166; 97530; 99291; G0482; J1200; J1650; J1956; J2250; J2270; J3010; J3490; J7030

== ENCOUNTER 2018-06-22 23:53 | Inpatient (IN) | payer MEDICAID, OTHER ==
[~2018-06-22] VITALS: Ht 162.6 cm; Wt 120.2 kg
[~2018-06-22 23:53] MED LIST changes: -HYDR200T PO; +HYDR200T80 PO; +PENT400T11 PO; -PENT400T2 PO
[2018-06-23] MEDS ORDERED: MORPHINE SULFATE 4 MG/ML CPJ (NOT FOR IM USE) IV STA (00:24)
[2018-06-23] MEDS ORDERED: ONDANSETRON HCL 4MG/2ML INJ IV STA (00:24)
[2018-06-23] MEDS ORDERED: SODIUM CHLORIDE 0.9% 1000ML BAG (SEPSIS BOLUS) IV ONE (00:30)
[2018-06-23] MEDS ORDERED: ACETAMINOPHEN 325MG TABLET PO ONE (00:30)
[2018-06-23] MEDS ORDERED: VANCOMYCIN 1 G PREMIX 200 ML IV ONE (00:30)
[2018-06-23 01:27] LABS: HEMATOCRIT. 36.9 % (36.0-48.0); HEMOGLOBIN. 12.1 g/dL (12.0-16.0); MEAN CORPUSCULAR HEMOGLOBIN 27.4 pg (28.0-32.0); MEAN PLATELET VOLUME 8.7 fl (7.4-10.4); PLATELET 145 x1000/uL (130-400); RED CELL DISTRIBUTION WIDTH 13.9 % (11.6-14.6)
[2018-06-23 01:38] LABS: INR 1.1; PROTHROMBIN TIME 11.2 sec (9.1-11.1)
[2018-06-23 01:45] LABS: CHLORIDE 111 mEq/L (98-107)
[2018-06-23 01:55] LABS: PLATELET ESTIMATE NORMAL
[2018-06-23] MEDS ORDERED: DIPHENHYDRAMINE 50MG/ML VIAL IV ONE (02:30)
[2018-06-23 05:17] LABS: CLARITY URINE CLEAR (CLEAR); COLOR URINE YELLOW (YELLOW); KETONES URINE NEGATIVE (NEGATIVE); LEUKOCYTE ESTERASE URINE NEGATIVE (NEGATIVE); NITRITE URINE POSITIVE (NEGATIVE); OCCULT BLOOD URINE NEGATIVE (NEGATIVE); PH URINE 5.5 (4.5-8.0); PROTEIN URINE 2+ (NEGATIVE); SPECIFIC GRAVITY URINE 1.014 (1.005-1.030); UROBILINOGEN URINE 0.2 E.U./dL (0.2-1.0)
[2018-06-23] MEDS ORDERED: ONDANSETRON HCL 4MG/2ML INJ IV PRN (07:00)
[2018-06-23] MEDS ORDERED: LEVOFLOXACIN 750MG PREMIX 150 ML IV ONE (07:00)
[2018-06-23] MEDS ORDERED: HYDROCODONE/ACETAMINOPHEN 5/325MG TABLET PO PRN (07:00)
[2018-06-23] MEDS ORDERED: ACETAMINOPHEN 325MG TABLET PO PRN (07:00)
[2018-06-23] MEDS ORDERED: CLONIDINE 0.1MG TABLET PO PRN (07:00)
[2018-06-23] MEDS ORDERED: DOCUSATE SODIUM 100MG CAPSULE PO PRN (07:00)
[2018-06-23] MEDS ORDERED: LORAZEPAM 0.5MG TABLET PO PRN (07:00)
[2018-06-23] MEDS ORDERED: IPRATROPIUM/ALBUTEROL 0.5-3(2.5)MG/3ML NEB INH PRN (07:00)
[2018-06-23] MEDS: MORPHINE SULFATE 4 MG/ML CPJ (NOT FOR IM USE) IV PRN ×2 (07:42→14:01)
[2018-06-23 08:00] VITALS: BP 155/94
[2018-06-23 08:38] LABS: PHOSPHORUS 2.3 mg/dL (2.5-4.9)
[2018-06-23 08:50] LABS: HCG SCREEN NEGATIVE
[2018-06-23 10:00] VITALS: BP 155/94
[2018-06-23] MEDS ORDERED: CLOP75TA16 PO (11:04)
[2018-06-23] MEDS ORDERED: KEPP500 PO (11:04)
[2018-06-23 11:51] VITALS: BP 147/99
[2018-06-23] MEDS ORDERED: INFLUENZA VIRUS VACCINE(AFLURIA) 0.5ML SYR IM ONE (12:00)
[2018-06-23] MEDS ORDERED: PNEUMOCOCCAL 23-VAL P-SAC VAC 0.5 ML IM ONE (12:00)
[2018-06-23] MEDS ORDERED: LEVO750T46 MT (12:20)
[2018-06-23 12:22] LABS: *BENZODIAZEPINES SCREEN URINE NEGATIVE (NEGATIVE)
[2018-06-23 12:23] LABS: *AMPHETAMINES SCREEN URINE NEGATIVE (NEGATIVE); *COCAINE SCREEN URINE NEGATIVE (NEGATIVE); CANNABINOID URINE SCREEN NEGATIVE (NEGATIVE); METHADONE URINE SCREEN NEGATIVE (NEGATIVE); PHENCYCLIDINE URINE SCREEN NEGATIVE (NEGATIVE)
[2018-06-23 12:24] LABS: *BARBITURATES SCREEN URINE NEGATIVE (NEGATIVE)
[2018-06-23 12:28] LABS: OPIATES URINE SCREEN PRESUMTIVE POSITIVE (NEGATIVE)
[2018-06-23] MEDS ORDERED: PENTOXIFYLLINE 400MG TABLET PO SCH (12:50)
[2018-06-23] MEDS ORDERED: NIFEDIPINE XL 60MG TAB PO SCH (13:00)
[2018-06-23] MEDS ORDERED: PANTOPRAZOLE 40MG DR TABLET PO SCH (13:00)
[2018-06-23] MEDS ORDERED: CLOPIDOGREL 75MG TABLET PO SCH (13:00)
[2018-06-23] MEDS ORDERED: HYDROXYCHLOROQUINE SULFATE 200MG TABLET PO SCH (13:00)
[2018-06-23] MEDS ORDERED: METOPROLOL TARTRATE 25MG TABLET PO SCH (13:00)
[2018-06-23] MEDS ORDERED: LEVETIRACETAM 250MG TABLET PO SCH (13:30)
[2018-06-23 14:21] VITALS: BP 147/99
[2018-06-23] MEDS ORDERED: CLONIDINE 0.1MG TABLET PO SCH (21:00)
[2018-06-23] MEDS ORDERED: FONDAPARINUX SODIUM SQ SCH (21:00)
[2018-06-23] MEDS ORDERED: TEMAZEPAM 15MG CAPSULE PO SCH (21:00)
[2018-06-24] MEDS ORDERED: LEVOFLOXACIN 250MG TABLET PO SCH (11:00)
== END 2018-06-23 15:45 | disposition home or self-care (01) | DRG 383 ==
LOC: ER 23:53 → 6WST 06-23 03:06 → EDBEDREQTM 06-23 03:08 → EDBEDREQ 06-23 03:08 → EDBEDREQSVC 06-23 03:08 → ENRESERV 06-23 04:28
PROVIDERS: ADMIT Internal Medicine; ATTEND Internal Medicine
DX: L03.115 Cellulitis of right lower limb (principal); D68.61 Antiphospholipid syndrome; R56.9 Unspecified convulsions; R65.10 Systemic inflammatory response syndrome (SIRS) of non-infectious origin without acute organ dysfunction; E44.1 Mild protein-calorie malnutrition; N39.0 Urinary tract infection, site not specified; I12.9 Hypertensive chronic kidney disease with stage 1 through stage 4 chronic kidney disease, or unspecified chronic kidney disease; M25.542 Pain in joints of left hand; M25.522 Pain in left elbow; I73.00 Raynaud's syndrome without gangrene; D72.829 Elevated white blood cell count, unspecified; N18.9 Chronic kidney disease, unspecified; Z86.718 Personal history of other venous thrombosis and embolism; Z88.0 Allergy status to penicillin; Z90.710 Acquired absence of both cervix and uterus; Z99.3 Dependence on wheelchair; Z79.1 Long term (current) use of non-steroidal anti-inflammatories (NSAID); I69.344 Monoplegia of lower limb following cerebral infarction affecting left non-dominant side; I69.334 Monoplegia of upper limb following cerebral infarction affecting left non-dominant side; Z88.8 Allergy status to other drugs, medicaments and biological substances; Z91.040 Latex allergy status; Z79.899 Other long term (current) drug therapy; Z79.01 Long term (current) use of anticoagulants
CPT/HCPCS: 36415; 71045; 80305; 83605; 83735; 84100; 84145; 84484; 84703; 85379; 85651; 86140; 90686; 90732; 93005; 93970; 96374; 99285; J1200; J1956; J2270; J2405; J3370; J7030

== ENCOUNTER 2019-02-19 05:19 | Emergency (ER) | payer MEDICAID ==
[~2019-02-19] VITALS: Ht 162.6 cm; Wt 109.0 kg
[~2019-02-19 05:19] MED LIST changes: +CLOP75TA4 PO; +KEPP500 PO; +LEVO750T46 MT; -PENT400T11 PO; +PENT400T16 PO
[2019-02-19] MEDS ORDERED: VISCOUS LIDOCAINE 2% 15 ML UDC PO STA (06:53)
[2019-02-19] MEDS ORDERED: MAGNESIUM/ALUMINUM HYDROXIDE/SIMETHICONE 30ML UDC PO STA (06:53)
[2019-02-19] MEDS ORDERED: ACETAMINOPHEN 325MG TABLET PO STA (06:53)
[2019-02-19] MEDS ORDERED: DICYCLOMINE 10 MG/5 ML ORAL SYR PO STA (06:53)
[2019-02-19] MEDS ORDERED: TRAMADOL 50MG TABLET PO ONE (07:15)
[2019-02-19] MEDS ORDERED: DEXAMETHASONE 1 MG/ML ORAL SYR PO ONE (07:15)
[2019-02-19] MEDS ORDERED: DEXAMETHASONE 1MG TABLET PO ONE (08:00)
[2019-02-19 08:20] VITALS: BP 144/72
== END 2019-02-19 08:30 | disposition home or self-care (01) ==
LOC: ER 05:19
DX: K12.1 Other forms of stomatitis (principal); M32.9 Systemic lupus erythematosus, unspecified; I10 Essential (primary) hypertension; M06.9 Rheumatoid arthritis, unspecified; Z86.73 Personal history of transient ischemic attack (TIA), and cerebral infarction without residual deficits; Z88.8 Allergy status to other drugs, medicaments and biological substances; Z91.040 Latex allergy status; Z86.718 Personal history of other venous thrombosis and embolism; Z79.01 Long term (current) use of anticoagulants; Z88.0 Allergy status to penicillin
CPT/HCPCS: 99284; J8540; Z7610

== ENCOUNTER 2019-02-23 18:15 | Emergency (ER) | payer MEDICAID ==
[~2019-02-23] VITALS: Ht 162.6 cm; Wt 109.0 kg
[2019-02-23] MEDS ORDERED: HYDROCODONE/ACETAMINOPHEN 10/325MG TABLET PO ONE (19:15)
[2019-02-23 20:53] VITALS: BP 141/96
== END 2019-02-23 20:55 | disposition home or self-care (01) ==
LOC: ER 18:15
DX: M06.9 Rheumatoid arthritis, unspecified (principal); I10 Essential (primary) hypertension; Z88.0 Allergy status to penicillin; Z91.013 Allergy to seafood; Z91.040 Latex allergy status; Z86.73 Personal history of transient ischemic attack (TIA), and cerebral infarction without residual deficits; Z88.8 Allergy status to other drugs, medicaments and biological substances
CPT/HCPCS: 73560; 99283

== ENCOUNTER 2020-09-04 22:25 | Inpatient (IN) | payer MEDICARE, MEDICAID ==
[~2020-09-04] VITALS: Ht 167.6 cm; Wt 115.2 kg
[~2020-09-04 22:25] MED LIST changes: +CLOP-31 PO; -CLOP75TA4 PO; +NIFE-32 PO; -NIFE60TA64 PO; -PANT40TA4 PO; +PANT40TA51 PO
[2020-09-04 23:46] LABS: BASOPHILS % 0.7 % (0.0-2.0); EOSINOPHILS % 1.6 % (0.0-5.0); HEMATOCRIT. 24.9 % (36.0-48.0); HEMOGLOBIN. 8.4 g/dL (12.0-16.0); LYMPHOCYTES % 7.4 % (20.0-50.0); MEAN CORPUSCULAR HEMOGLOBIN 28.1 pg (28.0-32.0); MEAN CORPUSCULAR VOLUME 83.7 fL (81.0-99.0); MEAN PLATELET VOLUME 8.3 fl (7.4-10.4); MONOCYTES % 4.9 % (2.0-8.0); NEUTROPHILS % 85.4 % (40.0-76.0); PLATELET 69 x1000/uL (130-400); RED BLOOD CELL COUNT 2.98 mill/uL (4.2-5.4); RED CELL DISTRIBUTION WIDTH 17.1 % (11.6-14.6)
[2020-09-04 23:52] LABS: CHLORIDE 112 mEq/L (98-107)
[2020-09-04 23:57] LABS: ETHANOL BLOOD < 10 mg/dL
[2020-09-04 23:59] LABS: LDL CHOLESTEROL 92 mg/dL (5-100)
[2020-09-05] VITALS (13 sets, daily range): BP systolic 141–169; BP diastolic 65–116
[2020-09-05] MEDS ORDERED: ASPIRIN 325MG TABLET PO ONE
[2020-09-05 00:04] LABS: INR 1.1; PROTHROMBIN TIME 11.8 sec (9.6-11.0)
[2020-09-05 00:53] LABS: CLARITY URINE CLEAR (CLEAR); COLOR URINE YELLOW (YELLOW); KETONES URINE NEGATIVE (NEGATIVE); LEUKOCYTE ESTERASE URINE NEGATIVE (NEGATIVE); NITRITE URINE NEGATIVE (NEGATIVE); OCCULT BLOOD URINE NEGATIVE (NEGATIVE); PROTEIN URINE 3+ (NEGATIVE); SPECIFIC GRAVITY URINE 1.019 (1.005-1.030); UROBILINOGEN URINE 0.2 E.U./dL (0.2-1.0)
[2020-09-05 01:03] LABS: *AMPHETAMINES SCREEN URINE NEGATIVE (NEGATIVE); *BARBITURATES SCREEN URINE NEGATIVE (NEGATIVE); *BENZODIAZEPINES SCREEN URINE NEGATIVE (NEGATIVE); *COCAINE SCREEN URINE NEGATIVE (NEGATIVE); METHADONE URINE SCREEN NEGATIVE (NEGATIVE); PHENCYCLIDINE URINE SCREEN NEGATIVE (NEGATIVE)
[2020-09-05 01:04] LABS: CANNABINOID URINE SCREEN NEGATIVE (NEGATIVE)
[2020-09-05 01:11] LABS: OPIATES URINE SCREEN PRESUMTIVE POSITIVE (NEGATIVE)
[2020-09-05] MEDS ORDERED: IOHEXOL-350 100 ML BOTTLE ONE (01:34)
[2020-09-05] MEDS ORDERED: AMLO1POW MC (05:28)
[2020-09-05] MEDS ORDERED: FERR324T4 PO (05:28)
[2020-09-05] MEDS ORDERED: METO-385 PO (05:29)
[2020-09-05] MEDS: HYDROCODONE/ACETAMINOPHEN 5/325MG TABLET PO PRN ×4 (06:41→20:44)
[2020-09-05] MEDS ORDERED: *PATIENT'S OWN MEDICATION STORAGE XX SCH (07:00)
[2020-09-05] MEDS ORDERED: ASPIRIN 325MG TABLET PO SCH (09:00)
[2020-09-05] MEDS: AMLODIPINE 10MG TABLET PO SCH (09:05)
[2020-09-05] MEDS: ISOSORBIDE MONONITRATE 60MG TABLET SR 24HR PO SCH (09:05)
[2020-09-05] MEDS ORDERED: ONDANSETRON HCL 4MG/2ML INJ IV PRN (10:15)
[2020-09-05] MEDS ORDERED: ACETAMINOPHEN 325MG TABLET PO PRN (10:15)
[2020-09-05] MEDS ORDERED: HYDRALAZINE HCL 50MG TABLET PO NR (10:15)
[2020-09-05] MEDS ORDERED: LEVOFLOXACIN 500MG PREMIX 100 ML IV NR (12:00)
[2020-09-05] MEDS: LORAZEPAM 2MG/ML CPJ IV PRN ×2 (12:50→21:56)
[2020-09-05] MEDS: HYDROXYCHLOROQUINE SULFATE 200MG TABLET PO SCH (16:00)
[2020-09-05] MEDS: LEVETIRACETAM 500MG TABLET PO SCH (20:42)
[2020-09-05] MEDS: ATORVASTATIN CALCIUM 40MG TABLET PO SCH (20:42)
[2020-09-05] MEDS: HYDRALAZINE HCL 50MG TABLET PO SCH (20:44)
[2020-09-06] VITALS (12 sets, daily range): BP systolic 134–181; BP diastolic 76–99
[2020-09-06] MEDS: HYDROCODONE/ACETAMINOPHEN 5/325MG TABLET PO PRN ×5 (02:48→21:34)
[2020-09-06] MEDS: LORAZEPAM 2MG/ML CPJ IV PRN ×3 (06:01→22:56)
[2020-09-06 06:24] LABS: BASOPHILS % 0.8 % (0.0-2.0); EOSINOPHILS % 2.2 % (0.0-5.0); HEMATOCRIT. 22.5 % (36.0-48.0); HEMOGLOBIN. 7.4 g/dL (12.0-16.0); LYMPHOCYTES % 12.4 % (20.0-50.0); MEAN CORPUSCULAR HEMOGLOBIN 27.7 pg (28.0-32.0); MEAN CORPUSCULAR VOLUME 84.3 fL (81.0-99.0); MEAN PLATELET VOLUME 8.2 fl (7.4-10.4); MONOCYTES % 8.8 % (2.0-8.0); NEUTROPHILS % 75.8 % (40.0-76.0); PLATELET 86 x1000/uL (130-400); RED BLOOD CELL COUNT 2.67 mill/uL (4.2-5.4); RED CELL DISTRIBUTION WIDTH 16.9 % (11.6-14.6)
[2020-09-06] MEDS: PANTOPRAZOLE 40MG DR TABLET PO SCH (09:29)
[2020-09-06] MEDS: HYDROXYCHLOROQUINE SULFATE 200MG TABLET PO SCH ×2 (09:29→17:51)
[2020-09-06] MEDS: LEVETIRACETAM 500MG TABLET PO SCH ×2 (09:29→20:18)
[2020-09-06] MEDS: HYDRALAZINE HCL 50MG TABLET PO SCH ×3 (09:30→21:35)
[2020-09-06] MEDS: ISOSORBIDE MONONITRATE 60MG TABLET SR 24HR PO SCH (09:30)
[2020-09-06] MEDS: AMLODIPINE 10MG TABLET PO SCH (09:30)
[2020-09-06] MEDS: LEVOFLOXACIN 250MG PREMIX 50 ML IV SCH (12:52)
[2020-09-06] MEDS: IPRATROPIUM/ALBUTEROL 0.5-3(2.5)MG/3ML NEB HHN SCH ×2 (16:31→21:10)
[2020-09-06] MEDS: DILTIAZEM HCL 90MG TABLET PO SCH ×2 (18:31→23:45)
[2020-09-06] MEDS: TEMAZEPAM 15MG CAPSULE PO SCH (20:17)
[2020-09-06] MEDS: ATORVASTATIN CALCIUM 40MG TABLET PO SCH (20:18)
[2020-09-06] MEDS: DOCUSATE SODIUM SUGAR FREE 100MG/10ML UDC PO SCH (21:34)
[2020-09-07] VITALS (12 sets, daily range): BP systolic 121–185; BP diastolic 66–124
[2020-09-07] MEDS: IPRATROPIUM/ALBUTEROL 0.5-3(2.5)MG/3ML NEB HHN SCH ×6 (00:54→20:28)
[2020-09-07] MEDS: HYDROCODONE/ACETAMINOPHEN 5/325MG TABLET PO PRN ×6 (01:28→22:15)
[2020-09-07] MEDS: DILTIAZEM HCL 90MG TABLET PO SCH ×2 (05:01→12:13)
[2020-09-07] MEDS: HYDRALAZINE HCL 50MG TABLET PO SCH (05:02)
[2020-09-07] MEDS: LORAZEPAM 2MG/ML CPJ IV PRN ×2 (06:51→15:33)
[2020-09-07 07:28] LABS: BASOPHILS % 0.5 % (0.0-2.0); EOSINOPHILS % 3.6 % (0.0-5.0); HEMATOCRIT. 22.4 % (36.0-48.0); HEMOGLOBIN. 7.5 g/dL (12.0-16.0); LYMPHOCYTES % 8.9 % (20.0-50.0); MEAN CORPUSCULAR HEMOGLOBIN 28.1 pg (28.0-32.0); MEAN CORPUSCULAR VOLUME 84.5 fL (81.0-99.0); MEAN PLATELET VOLUME 7.9 fl (7.4-10.4); MONOCYTES % 7.3 % (2.0-8.0); NEUTROPHILS % 79.7 % (40.0-76.0); PLATELET 94 x1000/uL (130-400); RED BLOOD CELL COUNT 2.65 mill/uL (4.2-5.4); RED CELL DISTRIBUTION WIDTH 16.9 % (11.6-14.6)
[2020-09-07] MEDS: CLOPIDOGREL 75MG TABLET PO SCH (08:33)
[2020-09-07] MEDS: DOCUSATE SODIUM SUGAR FREE 100MG/10ML UDC PO SCH ×2 (08:33→17:21)
[2020-09-07] MEDS: LEVETIRACETAM 500MG TABLET PO SCH ×2 (08:33→22:16)
[2020-09-07] MEDS: PANTOPRAZOLE 40MG DR TABLET PO SCH (08:33)
[2020-09-07] MEDS: HYDROXYCHLOROQUINE SULFATE 200MG TABLET PO SCH ×2 (08:41→17:19)
[2020-09-07] MEDS: CLONIDINE 0.1MG TABLET PO PRN (12:13)
[2020-09-07] MEDS: LEVOFLOXACIN 250MG PREMIX 50 ML IV SCH (12:15)
[2020-09-07] MEDS: DILTIAZEM HCL 120MG CAPSULE CD 24HR PO SCH ×2 (15:33→22:16)
[2020-09-07] MEDS: HYDRALAZINE HCL 100MG TABLET PO SCH ×2 (15:33→22:23)
[2020-09-07] MEDS: ATORVASTATIN CALCIUM 40MG TABLET PO SCH (22:16)
[2020-09-07] MEDS: TEMAZEPAM 15MG CAPSULE PO SCH (22:16)
[2020-09-08] VITALS: BP 155/81
[2020-09-08] MEDS: LORAZEPAM 2MG/ML CPJ IV PRN ×5 (00:44→21:19)
[2020-09-08] MEDS: IPRATROPIUM/ALBUTEROL 0.5-3(2.5)MG/3ML NEB HHN SCH ×6 (00:51→21:00)
[2020-09-08] MEDS: HYDROCODONE/ACETAMINOPHEN 5/325MG TABLET PO PRN (02:21)
[2020-09-08 04:00] VITALS: BP 128/79
[2020-09-08] MEDS: HYDRALAZINE HCL 100MG TABLET PO SCH ×3 (05:19→23:00)
[2020-09-08] MEDS: PANTOPRAZOLE 40MG DR TABLET PO SCH (05:51)
[2020-09-08 06:08] LABS: BASOPHILS % 0.7 % (0.0-2.0); EOSINOPHILS % 7.6 % (0.0-5.0); HEMATOCRIT. 22.8 % (36.0-48.0); HEMOGLOBIN. 7.5 g/dL (12.0-16.0); LYMPHOCYTES % 11.6 % (20.0-50.0); MEAN CORPUSCULAR HEMOGLOBIN 27.9 pg (28.0-32.0); MEAN PLATELET VOLUME 7.9 fl (7.4-10.4); MONOCYTES % 9.4 % (2.0-8.0); NEUTROPHILS % 70.7 % (40.0-76.0); PLATELET 94 x1000/uL (130-400); RED BLOOD CELL COUNT 2.68 mill/uL (4.2-5.4); RED CELL DISTRIBUTION WIDTH 17.1 % (11.6-14.6)
[2020-09-08] MEDS: HYDROCODONE/ACETAMINOPHEN 10/325MG TABLET PO PRN ×4 (06:11→20:02)
[2020-09-08 08:00] VITALS: BP 129/71
[2020-09-08] MEDS: DOCUSATE SODIUM SUGAR FREE 100MG/10ML UDC PO SCH ×2 (09:07→17:00)
[2020-09-08] MEDS: CLOPIDOGREL 75MG TABLET PO SCH (09:08)
[2020-09-08] MEDS: DILTIAZEM HCL 120MG CAPSULE CD 24HR PO SCH ×2 (09:08→21:19)
[2020-09-08] MEDS: LEVETIRACETAM 500MG TABLET PO SCH ×2 (09:08→21:19)
[2020-09-08] MEDS: HYDROXYCHLOROQUINE SULFATE 200MG TABLET PO SCH ×2 (09:08→19:02)
[2020-09-08 12:00] VITALS: BP 142/73
[2020-09-08] MEDS: LEVOFLOXACIN 250MG PREMIX 50 ML IV SCH (14:39)
[2020-09-08 16:00] VITALS: BP 144/72
[2020-09-08 20:00] VITALS: BP 131/60
[2020-09-08] MEDS: ATORVASTATIN CALCIUM 40MG TABLET PO SCH (21:19)
[2020-09-08] MEDS: TEMAZEPAM 15MG CAPSULE PO SCH (21:19)
[2020-09-09] VITALS: BP 167/80
[2020-09-09] MEDS: CLONIDINE 0.1MG TABLET PO PRN (00:25)
[2020-09-09] MEDS: HYDROCODONE/ACETAMINOPHEN 10/325MG TABLET PO PRN ×4 (00:27→21:50)
[2020-09-09] MEDS: IPRATROPIUM/ALBUTEROL 0.5-3(2.5)MG/3ML NEB HHN SCH ×6 (00:34→20:35)
[2020-09-09] MEDS: LORAZEPAM 2MG/ML CPJ IV PRN ×5 (01:30→23:50)
[2020-09-09 04:00] VITALS: BP 140/68
[2020-09-09] MEDS: PANTOPRAZOLE 40MG DR TABLET PO SCH (05:55)
[2020-09-09] MEDS: HYDRALAZINE HCL 100MG TABLET PO SCH ×3 (05:55→21:51)
[2020-09-09 07:14] LABS: BASOPHILS % 0.7 % (0.0-2.0); EOSINOPHILS % 8.2 % (0.0-5.0); HEMATOCRIT. 22.6 % (36.0-48.0); HEMOGLOBIN. 7.5 g/dL (12.0-16.0); LYMPHOCYTES % 10.7 % (20.0-50.0); MEAN CORPUSCULAR HEMOGLOBIN 28.6 pg (28.0-32.0); MEAN CORPUSCULAR VOLUME 85.8 fL (81.0-99.0); MEAN PLATELET VOLUME 7.8 fl (7.4-10.4); MONOCYTES % 8.5 % (2.0-8.0); NEUTROPHILS % 71.9 % (40.0-76.0); PLATELET 96 x1000/uL (130-400); RED BLOOD CELL COUNT 2.63 mill/uL (4.2-5.4); RED CELL DISTRIBUTION WIDTH 16.8 % (11.6-14.6)
[2020-09-09 08:00] VITALS: BP 126/67
[2020-09-09 09:08] LABS: DRVVT LA 110.3 sec (0.0-47.0); PTT-LA 91.3 sec (0.0-51.9)
[2020-09-09] MEDS: DILTIAZEM HCL 120MG CAPSULE CD 24HR PO SCH ×2 (09:19→20:24)
[2020-09-09] MEDS: HYDROXYCHLOROQUINE SULFATE 200MG TABLET PO SCH ×2 (09:19→17:25)
[2020-09-09] MEDS: CLOPIDOGREL 75MG TABLET PO SCH (09:19)
[2020-09-09] MEDS: LEVETIRACETAM 500MG TABLET PO SCH ×2 (09:19→20:24)
[2020-09-09] MEDS: DOCUSATE SODIUM SUGAR FREE 100MG/10ML UDC PO SCH ×2 (09:19→17:25)
[2020-09-09 12:00] VITALS: BP 146/72
[2020-09-09] MEDS: LEVOFLOXACIN 250MG PREMIX 50 ML IV SCH (12:21)
[2020-09-09 13:06] LABS: ANTI-MYELOPEROXIDASE AB < 9.0 U/mL (0.0-9.0); ANTI-PROTEINASE 3 ABS < 3.5 U/mL (0.0-3.5)
[2020-09-09] MEDS ORDERED: PREDNISONE 10MG TABLET PO SCH (15:15)
[2020-09-09 16:00] VITALS: BP 134/64
[2020-09-09] MEDS ORDERED: WARFARIN SODIUM 5MG TABLET PO NR (18:00)
[2020-09-09 20:00] VITALS: BP 140/75
[2020-09-09] MEDS: TEMAZEPAM 15MG CAPSULE PO SCH (20:24)
[2020-09-09] MEDS: ATORVASTATIN CALCIUM 40MG TABLET PO SCH (20:24)
[2020-09-09] MEDS: PREDNISONE 10MG TABLET PO SCH (20:24)
[2020-09-09] MEDS: AZATHIOPRINE 50MG TABLET PO SCH (21:51)
[2020-09-10] VITALS (7 sets, daily range): BP systolic 114–156; BP diastolic 53–75
[2020-09-10] MEDS: IPRATROPIUM/ALBUTEROL 0.5-3(2.5)MG/3ML NEB HHN SCH ×6 (00:56→20:56)
[2020-09-10] MEDS: HYDROCODONE/ACETAMINOPHEN 10/325MG TABLET PO PRN ×3 (02:40→13:16)
[2020-09-10 05:12] LABS: DRVVT LA CONFIRMATION 2.6 ratio (0.8-1.2); HEXAGONAL PHASE PHOSPHOLIPID 30 sec (0-11); LUPUS ANTICOAG INTERPRETATION Comment: (.); PTT-LA MIX 64.7 sec (0.0-48.9)
[2020-09-10] MEDS: PANTOPRAZOLE 40MG DR TABLET PO SCH (05:48)
[2020-09-10] MEDS: HYDRALAZINE HCL 100MG TABLET PO SCH ×2 (05:48→13:14)
[2020-09-10] MEDS: LORAZEPAM 2MG/ML CPJ IV PRN (05:49)
[2020-09-10 08:01] LABS: INR 1.1; PROTHROMBIN TIME 11.9 sec (9.6-11.0)
[2020-09-10 08:14] LABS: HEMATOCRIT. 23.8 % (36.0-48.0); HEMOGLOBIN. 7.8 g/dL (12.0-16.0); MEAN CORPUSCULAR HEMOGLOBIN 27.5 pg (28.0-32.0); MEAN CORPUSCULAR VOLUME 84.3 fL (81.0-99.0); MEAN PLATELET VOLUME 8.2 fl (7.4-10.4); PLATELET 112 x1000/uL (130-400); RED BLOOD CELL COUNT 2.82 mill/uL (4.2-5.4); RED CELL DISTRIBUTION WIDTH 16.6 % (11.6-14.6)
[2020-09-10] MEDS: HYDROXYCHLOROQUINE SULFATE 200MG TABLET PO SCH ×2 (08:49→17:11)
[2020-09-10] MEDS: DILTIAZEM HCL 120MG CAPSULE CD 24HR PO SCH (08:50)
[2020-09-10] MEDS: LEVETIRACETAM 500MG TABLET PO SCH ×2 (08:51→20:10)
[2020-09-10] MEDS: PREDNISONE 10MG TABLET PO SCH ×2 (08:51→17:11)
[2020-09-10] MEDS: CLOPIDOGREL 75MG TABLET PO SCH (08:51)
[2020-09-10] MEDS: DOCUSATE SODIUM SUGAR FREE 100MG/10ML UDC PO SCH ×2 (08:52→16:41)
[2020-09-10] MEDS ORDERED: LORAZEPAM 2MG/ML CPJ IV PRN (11:30)
[2020-09-10 13:07] LABS: ANTI-DNA DOUBLE STRANDED QUANT 5 IU/mL (0-9)
[2020-09-10] MEDS: AZATHIOPRINE 50MG TABLET PO SCH (13:13)
[2020-09-10 14:08] LABS: ATYPICAL P-ANCA <1:20 titer (Neg:<1:20); CYTOPLASMIC C-ANCA <1:20 titer (Neg:<1:20); PERINUCLEAR P-ANCA <1:20 titer (Neg:<1:20)
[2020-09-10] MEDS ORDERED: PRED10TA PO (16:53)
[2020-09-10] MEDS ORDERED: DILT120C88 PO (16:53)
[2020-09-10] MEDS ORDERED: HYDR100T26 PO (16:53)
[2020-09-10] MEDS ORDERED: WARF-53 MT (16:53)
[2020-09-10] MEDS ORDERED: LIP40 PO (16:53)
[2020-09-10] MEDS ORDERED: KEPP500 PO (16:53)
[2020-09-10] MEDS ORDERED: PANT40TA51 PO (16:55)
[2020-09-10] MEDS ORDERED: WARFARIN SODIUM 5MG TABLET PO SCH (18:00)
[2020-09-10] MEDS: TEMAZEPAM 15MG CAPSULE PO SCH (19:57)
[2020-09-10 22:39] LABS: PLATELET ESTIMATE DECREASED
[2020-09-11] MEDS ORDERED: FAMOTIDINE 20MG TABLET PO SCH (09:00)
[2020-09-11 15:06] LABS: ANGIOTENSION CONVERTING ENZYME 49 U/L (14-82)
[2020-09-12 13:06] LABS: ANA IFA Negative (.)
[2020-09-13 13:11] LABS: ANTI-CARDIOLIPIN AB IGA < 9 APL U/mL (0-11); ANTI-CARDIOLIPIN AB IGG 103 GPL U/mL (0-14); ANTI-CARDIOLIPIN AB IGM 74 MPL U/mL (0-12)
== END 2020-09-10 21:15 | disposition home health service (06) | DRG 64 ==
LOC: ER 22:25 → EDBEDREQ 09-05 00:14 → EDBEDREQTM 09-05 00:14 → ENRESERV 09-05 02:47 → EDBEDREQ 09-05 02:49 → 5EST 09-05 05:28 → 5WST 09-07 23:25
PROVIDERS: ADMIT Internal Medicine; ATTEND Internal Medicine
PROC: 4A10X4Z Monitoring of Central Nervous Electrical Activity, External Approach (ICD-10-PCS; principal; 2020-09-08)
DX: I63.81 Other cerebral infarction due to occlusion or stenosis of small artery (principal); J18.9 Pneumonia, unspecified organism; N17.9 Acute kidney failure, unspecified; E87.1 Hypo-osmolality and hyponatremia; D68.61 Antiphospholipid syndrome; Z68.41 Body mass index [BMI] 40.0-44.9, adult; I12.9 Hypertensive chronic kidney disease with stage 1 through stage 4 chronic kidney disease, or unspecified chronic kidney disease; G40.909 Epilepsy, unspecified, not intractable, without status epilepticus; E87.8 Other disorders of electrolyte and fluid balance, not elsewhere classified; F32.9 Major depressive disorder, single episode, unspecified; M06.9 Rheumatoid arthritis, unspecified; D69.6 Thrombocytopenia, unspecified; F41.9 Anxiety disorder, unspecified; D64.9 Anemia, unspecified; E66.01 Morbid (severe) obesity due to excess calories; I73.00 Raynaud's syndrome without gangrene; M32.9 Systemic lupus erythematosus, unspecified; M47.897 Other spondylosis, lumbosacral region; N18.2 Chronic kidney disease, stage 2 (mild); Z88.0 Allergy status to penicillin; Z88.8 Allergy status to other drugs, medicaments and biological substances; Z71.3 Dietary counseling and surveillance; Z79.899 Other long term (current) drug therapy; Z86.718 Personal history of other venous thrombosis and embolism
CPT/HCPCS: 36415; 70496; 70498; 70551; 71045; 72141; 72146; 72148; 80048; 80053; 80061; 80305; 80320; 81003; 82040; 82164; 82962; 83520; 83721; 83880; 84134; 84156; 84443; 84484; 85025; 85379; 85613; 85651; 85732; 86147; 86160; 86225; 86256; 86592; 86780; 93005; 93306; 93970; 94640; 95816; 97110; 97162; 97166; 97530; 99291; C1893; J1956; J2060; J7040; J7500; J7512; Q9967; A4315; G0480

== ENCOUNTER 2020-10-25 12:05 | Inpatient (IN) | payer MEDICARE, MEDICAID ==
[~2020-10-25] VITALS: Ht 165.1 cm; Wt 106.1 kg
[~2020-10-25 12:05] MED LIST changes: +DILT120C88 PO; +FERR324T4 PO; +HYDR100T26 PO; -LEVO750T46 MT; +LIP40 PO; +METO-385 PO; -NIFE-32 PO; +PRED10TA PO; +WARF-53 MT
[2020-10-25] MEDS ORDERED: SODIUM CHLORIDE 0.9% 1,000 ML IV ONE (12:15)
[2020-10-25] MEDS ORDERED: LEVETIRACETAM 500MG PREMIX 100 ML IV ONE (12:15)
[2020-10-25] MEDS ORDERED: LORAZEPAM 2MG/ML CPJ IV ONE (12:15)
[2020-10-25 13:28] LABS: BASOPHILS % 0.8 % (0.0-2.0); EOSINOPHILS % 0.4 % (0.0-5.0); LYMPHOCYTES % 19.6 % (20.0-50.0); MEAN CORPUSCULAR HEMOGLOBIN 26.5 pg (28.0-32.0); MEAN CORPUSCULAR VOLUME 82.5 fL (81.0-99.0); MEAN PLATELET VOLUME 7.5 fl (7.4-10.4); MONOCYTES % 5.7 % (2.0-8.0); NEUTROPHILS % 73.5 % (40.0-76.0); PLATELET 234 x1000/uL (130-400); RED BLOOD CELL COUNT 2.48 mill/uL (4.2-5.4); RED CELL DISTRIBUTION WIDTH 15.8 % (11.6-14.6)
[2020-10-25 13:34] LABS: CHLORIDE 112 mEq/L (98-107)
[2020-10-25 13:49] LABS: HEMATOCRIT. 20.4 % (36.0-48.0); HEMOGLOBIN. 6.6 g/dL (12.0-16.0)
[2020-10-25 15:35] LABS: PARTIAL THROMBOPLASTIN TIME 50.8 sec (23.4-31.0); PROTHROMBIN TIME 41.6 sec (9.6-11.0)
[2020-10-25 15:56] LABS: INR 4.4
[2020-10-25] MEDS ORDERED: CLONIDINE 0.1MG TABLET PO PRN (17:45)
[2020-10-25] MEDS ORDERED: ONDANSETRON HCL 4MG/2ML INJ IV PRN (17:45)
[2020-10-25] MEDS ORDERED: IPRATROPIUM/ALBUTEROL 0.5-3(2.5)MG/3ML NEB HHN PRN (17:45)
[2020-10-25] MEDS ORDERED: ACETAMINOPHEN 325MG TABLET PO PRN ×2 (17:45)
[2020-10-25 21:00] VITALS: BP 158/98
[2020-10-25 21:33] VITALS: BP 158/98
[2020-10-25] MEDS: DILTIAZEM HCL 120MG CAPSULE CD 24HR PO SCH (21:54)
[2020-10-25] MEDS: CLONIDINE 0.1MG TABLET PO SCH (21:55)
[2020-10-25] MEDS: ATORVASTATIN CALCIUM 40MG TABLET PO SCH (21:55)
[2020-10-25] MEDS: LEVETIRACETAM 500MG TABLET PO SCH (21:55)
[2020-10-25] MEDS: HYDRALAZINE HCL 100MG TABLET PO SCH (21:56)
[2020-10-25 22:00] VITALS: BP 158/98
[2020-10-25] MEDS: HYDROCODONE/ACETAMINOPHEN 5/325MG TABLET PO PRN (22:18)
[2020-10-26] VITALS (11 sets, daily range): BP systolic 117–148; BP diastolic 63–80
[2020-10-26] MEDS: TEMAZEPAM 15MG CAPSULE PO PRN ×2 (02:33→20:52)
[2020-10-26] MEDS: HYDRALAZINE HCL 100MG TABLET PO SCH ×3 (06:02→20:41)
[2020-10-26] MEDS: HYDROCODONE/ACETAMINOPHEN 5/325MG TABLET PO PRN ×2 (06:03→16:05)
[2020-10-26 06:28] LABS: PROTHROMBIN TIME 43.4 sec (9.6-11.0)
[2020-10-26 06:35] LABS: BASOPHILS % 0.9 % (0.0-2.0); EOSINOPHILS % 1.4 % (0.0-5.0); LYMPHOCYTES % 16.1 % (20.0-50.0); MEAN CORPUSCULAR HEMOGLOBIN 25.1 pg (28.0-32.0); MEAN CORPUSCULAR VOLUME 78.7 fL (81.0-99.0); MEAN PLATELET VOLUME 7.3 fl (7.4-10.4); MONOCYTES % 6.1 % (2.0-8.0); NEUTROPHILS % 75.5 % (40.0-76.0); PLATELET 222 x1000/uL (130-400); RED BLOOD CELL COUNT 2.69 mill/uL (4.2-5.4); RED CELL DISTRIBUTION WIDTH 17.9 % (11.6-14.6)
[2020-10-26 06:40] LABS: HEMATOCRIT. 21.2 % (36.0-48.0); HEMOGLOBIN. 6.7 g/dL (12.0-16.0)
[2020-10-26 07:39] LABS: INR 4.6
[2020-10-26] MEDS: DOCUSATE SODIUM 100MG CAPSULE PO PRN (09:10)
[2020-10-26] MEDS: HYDROXYCHLOROQUINE SULFATE 200MG TABLET PO SCH (09:10)
[2020-10-26] MEDS: LEVETIRACETAM 500MG TABLET PO SCH ×2 (09:10→20:42)
[2020-10-26] MEDS: DILTIAZEM HCL 120MG CAPSULE CD 24HR PO SCH ×2 (09:11→20:41)
[2020-10-26] MEDS: PANTOPRAZOLE 40MG DR TABLET PO SCH (09:11)
[2020-10-26] MEDS: PREDNISONE 10MG TABLET PO SCH ×2 (09:11→16:05)
[2020-10-26] MEDS: METOPROLOL TARTRATE 25MG TABLET PO SCH ×2 (09:11→16:05)
[2020-10-26] MEDS: PENTOXIFYLLINE 400MG TABLET PO SCH ×2 (09:17→16:05)
[2020-10-26] MEDS: LORAZEPAM 0.5MG TABLET PO PRN ×2 (14:06→20:42)
[2020-10-26 17:23] LABS: TOTAL IRON BINDING CAPACITY 295 ug/dL (250-450)
[2020-10-26 18:54] LABS: FOLIC ACID (FOLATE) SERUM 5.2 ng/mL (>5.38)
[2020-10-26] MEDS: CLONIDINE 0.1MG TABLET PO SCH (20:41)
[2020-10-26] MEDS: ATORVASTATIN CALCIUM 40MG TABLET PO SCH (20:41)
[2020-10-26 20:51] LABS: HEMATOCRIT 28.5 % (36.0-48.0); HEMOGLOBIN 9.2 g/dL (12.0-16.0)
[2020-10-26 20:58] LABS: INR 3.2; PROTHROMBIN TIME 31.1 sec (9.6-11.0)
[2020-10-27 00:39] VITALS: BP 113/56
[2020-10-27 04:34] VITALS: BP 122/65
[2020-10-27] MEDS: HYDRALAZINE HCL 100MG TABLET PO SCH ×3 (06:01→20:19)
[2020-10-27 06:51] LABS: BASOPHILS % 0.7 % (0.0-2.0); EOSINOPHILS % 0.1 % (0.0-5.0); HEMOGLOBIN. 8.9 g/dL (12.0-16.0); LYMPHOCYTES % 19.5 % (20.0-50.0); MEAN CORPUSCULAR HEMOGLOBIN 25.9 pg (28.0-32.0); MEAN CORPUSCULAR VOLUME 81.7 fL (81.0-99.0); MEAN PLATELET VOLUME 7.1 fl (7.4-10.4); MONOCYTES % 8.3 % (2.0-8.0); NEUTROPHILS % 71.4 % (40.0-76.0); PLATELET 210 x1000/uL (130-400); RED BLOOD CELL COUNT 3.43 mill/uL (4.2-5.4); RED CELL DISTRIBUTION WIDTH 18.2 % (11.6-14.6)
[2020-10-27 07:02] LABS: PROTHROMBIN TIME 29.7 sec (9.6-11.0)
[2020-10-27 08:00] VITALS: BP 127/68
[2020-10-27] MEDS: LEVETIRACETAM 500MG TABLET PO SCH ×2 (08:56→20:19)
[2020-10-27] MEDS: PREDNISONE 10MG TABLET PO SCH ×2 (08:56→17:12)
[2020-10-27] MEDS: PANTOPRAZOLE 40MG DR TABLET PO SCH (08:56)
[2020-10-27] MEDS: HYDROXYCHLOROQUINE SULFATE 200MG TABLET PO SCH ×2 (08:57→20:17)
[2020-10-27] MEDS: METOPROLOL TARTRATE 25MG TABLET PO SCH ×2 (08:57→17:12)
[2020-10-27] MEDS: PENTOXIFYLLINE 400MG TABLET PO SCH ×2 (08:57→17:12)
[2020-10-27] MEDS: DILTIAZEM HCL 120MG CAPSULE CD 24HR PO SCH ×2 (08:58→20:18)
[2020-10-27] MEDS: HYDROCODONE/ACETAMINOPHEN 5/325MG TABLET PO PRN ×2 (08:58→17:12)
[2020-10-27 16:00] VITALS: BP 133/77
[2020-10-27] MEDS: FOLIC ACID 1MG TABLET PO SCH (17:13)
[2020-10-27 20:00] VITALS: BP 136/81
[2020-10-27] MEDS ORDERED: PREDNISONE 10MG TABLET PO SCH (20:00)
[2020-10-27] MEDS ORDERED: WARFARIN SODIUM 10MG TABLET PO SCH (20:00)
[2020-10-27] MEDS: CLONIDINE 0.1MG TABLET PO SCH (20:18)
[2020-10-27] MEDS: LORAZEPAM 0.5MG TABLET PO PRN (20:19)
[2020-10-27] MEDS: TEMAZEPAM 15MG CAPSULE PO PRN (20:19)
[2020-10-27] MEDS: ATORVASTATIN CALCIUM 40MG TABLET PO SCH (20:19)
[2020-10-27] MEDS ORDERED: WARFARIN SODIUM 1MG TABLET PO NR (22:00)
[2020-10-27] MEDS: DOCUSATE SODIUM 100MG CAPSULE PO PRN (22:26)
[2020-10-28] VITALS: BP 130/79
[2020-10-28] MEDS: HYDROCODONE/ACETAMINOPHEN 5/325MG TABLET PO PRN ×4 (01:51→20:14)
[2020-10-28 04:00] VITALS: BP 122/73
[2020-10-28] MEDS: HYDRALAZINE HCL 100MG TABLET PO SCH ×3 (06:14→21:07)
[2020-10-28 08:00] VITALS: BP 133/85
[2020-10-28 08:40] LABS: INR 2.7; PARTIAL THROMBOPLASTIN TIME 43.1 sec (23.4-31.0); PROTHROMBIN TIME 26.4 sec (9.6-11.0)
[2020-10-28] MEDS: LEVETIRACETAM 500MG TABLET PO SCH ×2 (08:51→21:06)
[2020-10-28] MEDS: PENTOXIFYLLINE 400MG TABLET PO SCH ×2 (08:51→18:05)
[2020-10-28] MEDS: PREDNISONE 10MG TABLET PO SCH (08:52)
[2020-10-28] MEDS: FOLIC ACID 1MG TABLET PO SCH (08:52)
[2020-10-28] MEDS: DILTIAZEM HCL 120MG CAPSULE CD 24HR PO SCH ×2 (08:52→21:08)
[2020-10-28] MEDS: PANTOPRAZOLE 40MG DR TABLET PO SCH (08:52)
[2020-10-28] MEDS: HYDROXYCHLOROQUINE SULFATE 200MG TABLET PO SCH ×2 (08:53→18:06)
[2020-10-28] MEDS: METOPROLOL TARTRATE 25MG TABLET PO SCH ×2 (08:53→18:05)
[2020-10-28] MEDS ORDERED: PANT40TA51 PO (11:41)
[2020-10-28] MEDS ORDERED: PRED10TA PO (11:41)
[2020-10-28] MEDS ORDERED: WARF2.5T83 MT (11:41)
[2020-10-28] MEDS ORDERED: FOLI-43 PO (11:41)
[2020-10-28] MEDS ORDERED: HYDR200T80 PO (11:41)
[2020-10-28 12:00] VITALS: BP 125/72
[2020-10-28 13:10] LABS: ANTI-DNA DOUBLE STRANDED QUANT 2 IU/mL (0-9)
[2020-10-28 16:00] VITALS: BP 118/69
[2020-10-28] MEDS ORDERED: WARFARIN SODIUM 1MG TABLET PO SCH (18:00)
[2020-10-28 20:00] VITALS: BP 116/60
[2020-10-28] MEDS: CLONIDINE 0.1MG TABLET PO SCH (21:07)
[2020-10-28] MEDS: ATORVASTATIN CALCIUM 40MG TABLET PO SCH (21:08)
[2020-10-29] VITALS: BP 111/59
[2020-10-29] MEDS: TEMAZEPAM 15MG CAPSULE PO PRN ×2 (00:19→23:17)
[2020-10-29 04:00] VITALS: BP_SYST 109; BP_SYST 115; BP_DIAS 66
[2020-10-29] MEDS: HYDROCODONE/ACETAMINOPHEN 5/325MG TABLET PO PRN ×2 (04:44→17:31)
[2020-10-29] MEDS: HYDRALAZINE HCL 100MG TABLET PO SCH ×3 (05:44→20:40)
[2020-10-29 07:36] LABS: INR 2.7; PROTHROMBIN TIME 27.1 sec (9.6-11.0)
[2020-10-29 08:00] VITALS: BP 148/80
[2020-10-29] MEDS: PENTOXIFYLLINE 400MG TABLET PO SCH ×2 (08:07→17:30)
[2020-10-29] MEDS: LEVETIRACETAM 500MG TABLET PO SCH ×2 (08:07→20:40)
[2020-10-29] MEDS: PREDNISONE 10MG TABLET PO SCH (08:07)
[2020-10-29] MEDS: PANTOPRAZOLE 40MG DR TABLET PO SCH (08:07)
[2020-10-29] MEDS: FOLIC ACID 1MG TABLET PO SCH (08:07)
[2020-10-29] MEDS: HYDROXYCHLOROQUINE SULFATE 200MG TABLET PO SCH ×2 (08:08→17:31)
[2020-10-29] MEDS: METOPROLOL TARTRATE 25MG TABLET PO SCH ×2 (08:08→17:32)
[2020-10-29] MEDS: DILTIAZEM HCL 120MG CAPSULE CD 24HR PO SCH ×2 (08:09→20:40)
[2020-10-29 09:11] LABS: G6PD RBC 3.24 x10E6/uL (3.77-5.28)
[2020-10-29 12:00] VITALS: BP 117/66
[2020-10-29 16:00] VITALS: BP 127/76
[2020-10-29] MEDS ORDERED: WARFARIN SODIUM 1MG TABLET PO SCH (18:00)
[2020-10-29 20:00] VITALS: BP 136/75
[2020-10-29] MEDS: ATORVASTATIN CALCIUM 40MG TABLET PO SCH (20:40)
[2020-10-29] MEDS: CLONIDINE 0.1MG TABLET PO SCH (20:41)
[2020-10-29] MEDS: LORAZEPAM 0.5MG TABLET PO PRN (20:44)
[2020-10-30] VITALS: BP 124/72
[2020-10-30 04:00] VITALS: BP 134/77
[2020-10-30] MEDS: HYDRALAZINE HCL 100MG TABLET PO SCH ×3 (05:11→21:12)
[2020-10-30] MEDS: HYDROCODONE/ACETAMINOPHEN 5/325MG TABLET PO PRN ×3 (06:39→20:21)
[2020-10-30 08:00] VITALS: BP 139/79
[2020-10-30 08:20] LABS: INR 2.7; PROTHROMBIN TIME 27.2 sec (9.6-11.0)
[2020-10-30] MEDS: LEVETIRACETAM 500MG TABLET PO SCH ×2 (09:31→20:21)
[2020-10-30] MEDS: PENTOXIFYLLINE 400MG TABLET PO SCH ×2 (09:31→18:00)
[2020-10-30] MEDS: HYDROXYCHLOROQUINE SULFATE 200MG TABLET PO SCH ×2 (09:31→18:00)
[2020-10-30] MEDS: DILTIAZEM HCL 120MG CAPSULE CD 24HR PO SCH ×2 (09:31→20:21)
[2020-10-30] MEDS: FOLIC ACID 1MG TABLET PO SCH (09:32)
[2020-10-30] MEDS: METOPROLOL TARTRATE 25MG TABLET PO SCH ×2 (09:32→18:01)
[2020-10-30] MEDS: PREDNISONE 10MG TABLET PO SCH (09:32)
[2020-10-30] MEDS: PANTOPRAZOLE 40MG DR TABLET PO SCH (09:32)
[2020-10-30 12:00] VITALS: BP 124/65
[2020-10-30 16:00] VITALS: BP 125/71
[2020-10-30] MEDS ORDERED: WARFARIN SODIUM 1MG TABLET PO SCH (18:00)
[2020-10-30 20:00] VITALS: BP 136/77
[2020-10-30] MEDS: ATORVASTATIN CALCIUM 40MG TABLET PO SCH (20:21)
[2020-10-30] MEDS: CLONIDINE 0.1MG TABLET PO SCH (20:22)
[2020-10-31] VITALS: BP 129/79
[2020-10-31] MEDS: LORAZEPAM 0.5MG TABLET PO PRN ×2 (00:15→21:03)
[2020-10-31 04:00] VITALS: BP 127/71
[2020-10-31] MEDS: HYDRALAZINE HCL 100MG TABLET PO SCH ×3 (05:03→21:03)
[2020-10-31] MEDS: HYDROCODONE/ACETAMINOPHEN 5/325MG TABLET PO PRN ×4 (05:03→19:48)
[2020-10-31 08:00] VITALS: BP 120/74
[2020-10-31 09:06] LABS: ANTI-CARDIOLIPIN AB IGG 67 GPL U/mL (0-14); ANTI-CARDIOLIPIN AB IGM 52 MPL U/mL (0-12)
[2020-10-31] MEDS: PREDNISONE 10MG TABLET PO SCH (09:29)
[2020-10-31] MEDS: METOPROLOL TARTRATE 25MG TABLET PO SCH ×2 (09:30→18:02)
[2020-10-31] MEDS: HYDROXYCHLOROQUINE SULFATE 200MG TABLET PO SCH ×2 (09:31→18:00)
[2020-10-31] MEDS: DILTIAZEM HCL 120MG CAPSULE CD 24HR PO SCH ×2 (09:31→20:23)
[2020-10-31] MEDS: PENTOXIFYLLINE 400MG TABLET PO SCH ×2 (09:31→18:02)
[2020-10-31] MEDS: PANTOPRAZOLE 40MG DR TABLET PO SCH (09:32)
[2020-10-31] MEDS: LEVETIRACETAM 500MG TABLET PO SCH ×2 (09:32→20:24)
[2020-10-31] MEDS: FOLIC ACID 1MG TABLET PO SCH (09:32)
[2020-10-31 12:00] VITALS: BP 122/70
[2020-10-31 12:15] LABS: BASOPHILS % 0.7 % (0.0-2.0); EOSINOPHILS % 1.5 % (0.0-5.0); HEMATOCRIT. 25.8 % (36.0-48.0); HEMOGLOBIN. 8.6 g/dL (12.0-16.0); LYMPHOCYTES % 32.1 % (20.0-50.0); MEAN CORPUSCULAR HEMOGLOBIN 27.1 pg (28.0-32.0); MEAN CORPUSCULAR VOLUME 81.5 fL (81.0-99.0); MEAN PLATELET VOLUME 7.3 fl (7.4-10.4); MONOCYTES % 9.8 % (2.0-8.0); NEUTROPHILS % 55.9 % (40.0-76.0); PLATELET 278 x1000/uL (130-400); RED BLOOD CELL COUNT 3.17 mill/uL (4.2-5.4); RED CELL DISTRIBUTION WIDTH 18.6 % (11.6-14.6)
[2020-10-31 12:25] LABS: INR 1.7; PROTHROMBIN TIME 17.9 sec (9.6-11.0)
[2020-10-31] MEDS ORDERED: CAPSAICIN 0.025% CREAM 60GM TOP PRN (14:00)
[2020-10-31] MEDS ORDERED: CAPSAICIN 0.075% CREAM 60GM TOP PRN (14:17)
[2020-10-31 16:00] VITALS: BP 118/61
[2020-10-31] MEDS ORDERED: WARFARIN SODIUM 2MG TABLET PO SCH (18:00)
[2020-10-31 20:00] VITALS: BP 157/88
[2020-10-31] MEDS: CLONIDINE 0.1MG TABLET PO SCH (20:23)
[2020-10-31] MEDS: ATORVASTATIN CALCIUM 40MG TABLET PO SCH (20:24)
[2020-10-31] MEDS: TEMAZEPAM 15MG CAPSULE PO PRN (21:03)
[2020-11-01] VITALS (8 sets, daily range): BP systolic 120–147; BP diastolic 61–86
[2020-11-01] MEDS: HYDRALAZINE HCL 100MG TABLET PO SCH ×3 (05:14→20:33)
[2020-11-01] MEDS: HYDROCODONE/ACETAMINOPHEN 5/325MG TABLET PO PRN ×4 (05:14→20:32)
[2020-11-01 07:50] LABS: EOSINOPHILS % 3.1 % (0.0-5.0); HEMATOCRIT. 26.4 % (36.0-48.0); HEMOGLOBIN. 8.8 g/dL (12.0-16.0); LYMPHOCYTES % 34.2 % (20.0-50.0); MEAN CORPUSCULAR HEMOGLOBIN 26.5 pg (28.0-32.0); MEAN CORPUSCULAR VOLUME 79.3 fL (81.0-99.0); MEAN PLATELET VOLUME 7.9 fl (7.4-10.4); MONOCYTES % 9.8 % (2.0-8.0); NEUTROPHILS % 51.9 % (40.0-76.0); PLATELET 253 x1000/uL (130-400); RED BLOOD CELL COUNT 3.34 mill/uL (4.2-5.4); RED CELL DISTRIBUTION WIDTH 18.3 % (11.6-14.6)
[2020-11-01 08:50] LABS: INR 1.5; PROTHROMBIN TIME 15.4 sec (9.6-11.0)
[2020-11-01] MEDS: METOPROLOL TARTRATE 25MG TABLET PO SCH ×2 (08:55→17:15)
[2020-11-01] MEDS: LEVETIRACETAM 500MG TABLET PO SCH ×2 (08:55→20:32)
[2020-11-01] MEDS: FOLIC ACID 1MG TABLET PO SCH (08:55)
[2020-11-01] MEDS: PANTOPRAZOLE 40MG DR TABLET PO SCH (08:56)
[2020-11-01] MEDS: PENTOXIFYLLINE 400MG TABLET PO SCH ×2 (08:56→17:14)
[2020-11-01] MEDS: PREDNISONE 10MG TABLET PO SCH (08:56)
[2020-11-01] MEDS: HYDROXYCHLOROQUINE SULFATE 200MG TABLET PO SCH ×2 (08:56→17:14)
[2020-11-01] MEDS: DILTIAZEM HCL 120MG CAPSULE CD 24HR PO SCH ×2 (08:57→20:31)
[2020-11-01] MEDS ORDERED: WARFARIN SODIUM 2.5MG TABLET PO NR (18:00)
[2020-11-01] MEDS: TEMAZEPAM 15MG CAPSULE PO PRN (20:31)
[2020-11-01] MEDS: CLONIDINE 0.1MG TABLET PO SCH (20:32)
[2020-11-01] MEDS: ATORVASTATIN CALCIUM 40MG TABLET PO SCH (20:32)
[2020-11-02] VITALS: BP 130/70
[2020-11-02 04:00] VITALS: BP 118/62
[2020-11-02] MEDS: HYDRALAZINE HCL 100MG TABLET PO SCH ×2 (05:13→15:08)
[2020-11-02] MEDS: HYDROCODONE/ACETAMINOPHEN 5/325MG TABLET PO PRN ×3 (05:15→15:08)
[2020-11-02 06:57] LABS: INR 1.4; PROTHROMBIN TIME 14.6 sec (9.6-11.0)
[2020-11-02 08:00] VITALS: BP 147/86
[2020-11-02] MEDS: PREDNISONE 10MG TABLET PO SCH (10:29)
[2020-11-02] MEDS: FOLIC ACID 1MG TABLET PO SCH (10:30)
[2020-11-02] MEDS: LEVETIRACETAM 500MG TABLET PO SCH (10:30)
[2020-11-02] MEDS: PANTOPRAZOLE 40MG DR TABLET PO SCH (10:31)
[2020-11-02] MEDS: HYDROXYCHLOROQUINE SULFATE 200MG TABLET PO SCH ×2 (10:31→18:35)
[2020-11-02] MEDS: PENTOXIFYLLINE 400MG TABLET PO SCH ×2 (10:32→18:35)
[2020-11-02] MEDS: DILTIAZEM HCL 120MG CAPSULE CD 24HR PO SCH (10:32)
[2020-11-02] MEDS: METOPROLOL TARTRATE 25MG TABLET PO SCH ×2 (10:33→18:35)
[2020-11-02 12:07] VITALS: BP 134/77
[2020-11-02 16:00] VITALS: BP 144/63
[2020-11-02 17:20] VITALS: BP 134/77
[2020-11-02] MEDS ORDERED: WARFARIN SODIUM 3MG TABLET PO NR (18:00)
[2020-11-04 14:12] LABS: ANA IFA Positive (.)
== END 2020-11-02 19:15 | disposition home health service (06) | DRG 65 ==
LOC: ER 12:55 → 8WST 15:42 → EDBEDREQ 15:44 → ENRESERV 19:28
PROVIDERS: ADMIT Internal Medicine; ATTEND Internal Medicine
PROC: 30233N1 Transfusion of Nonautologous Red Blood Cells into Peripheral Vein, Percutaneous Approach (ICD-10-PCS; principal; 2020-10-25)
DX: I63.9 Cerebral infarction, unspecified (principal); D68.59 Other primary thrombophilia; D68.9 Coagulation defect, unspecified; E44.0 Moderate protein-calorie malnutrition; T45.515A Adverse effect of anticoagulants, initial encounter; D50.9 Iron deficiency anemia, unspecified; G40.909 Epilepsy, unspecified, not intractable, without status epilepticus; I12.9 Hypertensive chronic kidney disease with stage 1 through stage 4 chronic kidney disease, or unspecified chronic kidney disease; M06.9 Rheumatoid arthritis, unspecified; M32.9 Systemic lupus erythematosus, unspecified; R32 Unspecified urinary incontinence; N18.9 Chronic kidney disease, unspecified; M19.90 Unspecified osteoarthritis, unspecified site; F41.9 Anxiety disorder, unspecified; R25.1 Tremor, unspecified; M48.9 Spondylopathy, unspecified; Z79.01 Long term (current) use of anticoagulants; Z86.718 Personal history of other venous thrombosis and embolism; Y92.89 Other specified places as the place of occurrence of the external cause; Z88.0 Allergy status to penicillin; Z88.8 Allergy status to other drugs, medicaments and biological substances; Z91.040 Latex allergy status; Z86.73 Personal history of transient ischemic attack (TIA), and cerebral infarction without residual deficits; E53.8 Deficiency of other specified B group vitamins; Z68.38 Body mass index [BMI] 38.0-38.9, adult
CPT/HCPCS: 36415; 70551; 71045; 80048; 80053; 82607; 82728; 82746; 82955; 82962; 83540; 83550; 83735; 83880; 84484; 85014; 85018; 85025; 85041; 86147; 86225; 86256; 86850; 86870; 86880; 86900; 86920; 93005; 93970; 97110; 97162; 97530; 99285; A6261; C1893; J1953; J2060; J7030; J7040; J7512; P9016

== ENCOUNTER 2021-01-07 05:38 | Inpatient (IN) | payer MEDICARE, MEDICAID ==
[~2021-01-07] VITALS: Ht 167.6 cm; Wt 115.3 kg
[~2021-01-07 05:38] MED LIST changes: -CLOP-31 PO; -FERR324T4 PO; +FOLI-43 PO; -LEVE500T19 PO; +LEVO250T58 MT; -METO-385 PO; -TEMA15CA PO; -WARF-53 MT; -[UNRECOGNIZED DRUG - CODE] SQ
[2021-01-07] MEDS ORDERED: MORPHINE SULFATE 4 MG/ML CPJ (NOT FOR IM USE) IV STA (06:36)
[2021-01-07] MEDS ORDERED: ONDANSETRON HCL 4MG/2ML INJ IV STA (06:36)
[2021-01-07 07:12] LABS: BASOPHILS % 0.5 % (0.0-2.0); EOSINOPHILS % 2.1 % (0.0-5.0); HEMATOCRIT. 31.5 % (36.0-48.0); HEMOGLOBIN. 10.4 g/dL (12.0-16.0); LYMPHOCYTES % 24.3 % (20.0-50.0); MEAN CORPUSCULAR HEMOGLOBIN 27.8 pg (28.0-32.0); MEAN CORPUSCULAR VOLUME 84.5 fL (81.0-99.0); MEAN PLATELET VOLUME 7.8 fl (7.4-10.4); NEUTROPHILS % 67.1 % (40.0-76.0); PLATELET 86 x1000/uL (130-400); RED BLOOD CELL COUNT 3.73 mill/uL (4.2-5.4); RED CELL DISTRIBUTION WIDTH 21.3 % (11.6-14.6)
[2021-01-07 07:18] LABS: CHLORIDE 110 mEq/L (98-107)
[2021-01-07] MEDS ORDERED: AMLODIPINE 10MG TABLET PO ONE (07:30)
[2021-01-07] MEDS ORDERED: CLONIDINE 0.1MG TABLET PO ONE (07:30)
[2021-01-07] MEDS ORDERED: IPRATROPIUM/ALBUTEROL 0.5-3(2.5)MG/3ML NEB HHN PRN (16:30)
[2021-01-07] MEDS ORDERED: LORAZEPAM 0.5MG TABLET PO PRN (16:30)
[2021-01-07] MEDS ORDERED: ACETAMINOPHEN 325MG TABLET PO PRN ×2 (16:30)
[2021-01-07] MEDS ORDERED: ONDANSETRON HCL 4MG/2ML INJ IV PRN (16:30)
[2021-01-07] MEDS ORDERED: CLONIDINE 0.1MG TABLET PO PRN (16:30)
[2021-01-07] MEDS ORDERED: NALOXONE HCL 0.4MG/ML VIAL IV PRN (16:30)
[2021-01-07 17:00] VITALS: BP 123/65
[2021-01-07] MEDS: ERGOCALCIFEROL 50000UNITS CAPSULE PO SCH (17:33)
[2021-01-07] MEDS: PANTOPRAZOLE 40MG DR TABLET PO SCH (17:34)
[2021-01-07] MEDS: LORAZEPAM 0.5MG TABLET PO SCH (17:34)
[2021-01-07] MEDS: METOPROLOL TARTRATE 25MG TABLET PO SCH (17:34)
[2021-01-07] MEDS: HYDROCODONE/ACETAMINOPHEN 5/325MG TABLET PO PRN (17:35)
[2021-01-07] MEDS: PREDNISONE 10MG TABLET PO SCH (18:36)
[2021-01-07] MEDS: PENTOXIFYLLINE 400MG TABLET PO SCH (18:37)
[2021-01-07] MEDS: HYDROXYCHLOROQUINE SULFATE 200MG TABLET PO SCH (18:37)
[2021-01-07 20:00] VITALS: BP 137/65
[2021-01-07] MEDS: CLONIDINE 0.1MG TABLET PO SCH (21:00)
[2021-01-07] MEDS: DILTIAZEM HCL 120MG CAPSULE CD 24HR PO SCH (21:00)
[2021-01-07 22:09] LABS: PARTIAL THROMBOPLASTIN TIME 24.5 sec (23.4-31.0); PROTHROMBIN TIME 10.6 sec (9.6-11.0)
[2021-01-07] MEDS: HYDRALAZINE HCL 100MG TABLET PO SCH (22:12)
[2021-01-07] MEDS: LEVETIRACETAM 500MG TABLET PO SCH (22:12)
[2021-01-08] VITALS: BP 155/83
[2021-01-08 04:00] VITALS: BP 162/95
[2021-01-08] MEDS: HYDROCODONE/ACETAMINOPHEN 5/325MG TABLET PO PRN ×3 (04:28→14:22)
[2021-01-08 08:00] VITALS: BP 124/64
[2021-01-08] MEDS: PENTOXIFYLLINE 400MG TABLET PO SCH ×2 (09:00→17:50)
[2021-01-08] MEDS: LEVETIRACETAM 500MG TABLET PO SCH ×2 (09:00→22:12)
[2021-01-08 09:03] LABS: BASOPHILS % 0.3 % (0.0-2.0); EOSINOPHILS % 0.7 % (0.0-5.0); HEMATOCRIT. 27.9 % (36.0-48.0); HEMOGLOBIN. 9.4 g/dL (12.0-16.0); LYMPHOCYTES % 10.3 % (20.0-50.0); MEAN CORPUSCULAR HEMOGLOBIN 28.7 pg (28.0-32.0); MEAN CORPUSCULAR VOLUME 85.4 fL (81.0-99.0); MEAN PLATELET VOLUME 7.8 fl (7.4-10.4); MONOCYTES % 5.2 % (2.0-8.0); NEUTROPHILS % 83.5 % (40.0-76.0); PLATELET 67 x1000/uL (130-400); RED BLOOD CELL COUNT 3.27 mill/uL (4.2-5.4); RED CELL DISTRIBUTION WIDTH 21.4 % (11.6-14.6)
[2021-01-08] MEDS: LORAZEPAM 0.5MG TABLET PO SCH ×2 (09:24→17:34)
[2021-01-08] MEDS: FOLIC ACID 1MG TABLET PO SCH (09:25)
[2021-01-08] MEDS: DOCUSATE SODIUM 100MG CAPSULE PO PRN (09:27)
[2021-01-08] MEDS: METOPROLOL TARTRATE 25MG TABLET PO SCH ×2 (09:28→17:41)
[2021-01-08 12:00] VITALS: BP 133/61
[2021-01-08 16:00] VITALS: BP 177/81
[2021-01-08] MEDS: HYDROXYCHLOROQUINE SULFATE 200MG TABLET PO SCH ×2 (17:00→17:33)
[2021-01-08] MEDS: DILTIAZEM HCL 120MG CAPSULE CD 24HR PO SCH ×2 (17:33→22:11)
[2021-01-08] MEDS: PREDNISONE 10MG TABLET PO SCH (17:34)
[2021-01-08] MEDS ORDERED: WARFARIN SODIUM 2.5MG TABLET PO SCH (18:00)
[2021-01-08 20:00] VITALS: BP 134/64
[2021-01-08] MEDS: CLONIDINE 0.1MG TABLET PO SCH (22:11)
[2021-01-08] MEDS: HYDRALAZINE HCL 100MG TABLET PO SCH (22:12)
[2021-01-08] MEDS: ZOLPIDEM TARTRATE 5MG TABLET PO PRN (22:17)
[2021-01-09] VITALS: BP 153/84
[2021-01-09] MEDS: HYDROCODONE/ACETAMINOPHEN 5/325MG TABLET PO PRN ×4 (03:53→17:29)
[2021-01-09 04:00] VITALS: BP 146/83
[2021-01-09] MEDS: HYDRALAZINE HCL 100MG TABLET PO SCH ×3 (06:56→21:27)
[2021-01-09] MEDS: PANTOPRAZOLE 40MG DR TABLET PO SCH ×2 (06:56→07:02)
[2021-01-09 07:13] LABS: BASOPHILS % 0.2 % (0.0-2.0); EOSINOPHILS % 0.4 % (0.0-5.0); HEMATOCRIT. 29.9 % (36.0-48.0); HEMOGLOBIN. 9.7 g/dL (12.0-16.0); LYMPHOCYTES % 11.9 % (20.0-50.0); MEAN CORPUSCULAR VOLUME 86.2 fL (81.0-99.0); MONOCYTES % 5.9 % (2.0-8.0); NEUTROPHILS % 81.6 % (40.0-76.0); PLATELET 74 x1000/uL (130-400); RED BLOOD CELL COUNT 3.47 mill/uL (4.2-5.4); RED CELL DISTRIBUTION WIDTH 20.9 % (11.6-14.6)
[2021-01-09 07:19] LABS: PROTHROMBIN TIME 10.7 sec (9.6-11.0)
[2021-01-09 08:00] VITALS: BP 119/65
[2021-01-09] MEDS: LORAZEPAM 0.5MG TABLET PO SCH ×2 (08:34→17:44)
[2021-01-09] MEDS: DILTIAZEM HCL 120MG CAPSULE CD 24HR PO SCH ×2 (08:37→21:28)
[2021-01-09] MEDS: FOLIC ACID 1MG TABLET PO SCH (08:37)
[2021-01-09] MEDS: LEVETIRACETAM 500MG TABLET PO SCH ×2 (08:38→21:28)
[2021-01-09] MEDS: HYDROXYCHLOROQUINE SULFATE 200MG TABLET PO SCH ×2 (08:38→17:44)
[2021-01-09] MEDS: METOPROLOL TARTRATE 25MG TABLET PO SCH ×2 (08:38→17:44)
[2021-01-09] MEDS: PREDNISONE 10MG TABLET PO SCH (08:39)
[2021-01-09] MEDS: PENTOXIFYLLINE 400MG TABLET PO SCH ×2 (08:39→17:45)
[2021-01-09 12:00] VITALS: BP 137/76
[2021-01-09 16:00] VITALS: BP 144/67
[2021-01-09] MEDS ORDERED: WARFARIN SODIUM 2.5MG TABLET PO NR (18:00)
[2021-01-09 20:00] VITALS: BP 131/66
[2021-01-09] MEDS: CLONIDINE 0.1MG TABLET PO SCH (21:28)
[2021-01-09] MEDS: ZOLPIDEM TARTRATE 5MG TABLET PO PRN (22:39)
[2021-01-10] VITALS: BP_SYST 141; BP_SYST 153; BP_DIAS 79; BP_DIAS 84
[2021-01-10 04:00] VITALS: BP 146/83
[2021-01-10] MEDS: PANTOPRAZOLE 40MG DR TABLET PO SCH (06:07)
[2021-01-10] MEDS: HYDRALAZINE HCL 100MG TABLET PO SCH ×3 (06:08→21:38)
[2021-01-10] MEDS: HYDROCODONE/ACETAMINOPHEN 5/325MG TABLET PO PRN ×4 (06:51→20:51)
[2021-01-10 08:00] VITALS: BP 136/76
[2021-01-10] MEDS: HYDROXYCHLOROQUINE SULFATE 200MG TABLET PO SCH ×2 (10:04→17:34)
[2021-01-10] MEDS: DILTIAZEM HCL 120MG CAPSULE CD 24HR PO SCH ×2 (10:05→20:50)
[2021-01-10] MEDS: PENTOXIFYLLINE 400MG TABLET PO SCH ×2 (10:05→17:34)
[2021-01-10] MEDS: PREDNISONE 10MG TABLET PO SCH (10:05)
[2021-01-10] MEDS: LEVETIRACETAM 500MG TABLET PO SCH ×2 (10:06→20:52)
[2021-01-10] MEDS: FOLIC ACID 1MG TABLET PO SCH (10:06)
[2021-01-10] MEDS: LORAZEPAM 0.5MG TABLET PO SCH ×2 (10:06→17:34)
[2021-01-10] MEDS: METOPROLOL TARTRATE 25MG TABLET PO SCH ×2 (10:06→17:35)
[2021-01-10 10:40] LABS: BASOPHILS % 0.3 % (0.0-2.0); EOSINOPHILS % 1.8 % (0.0-5.0); HEMATOCRIT. 32.9 % (36.0-48.0); HEMOGLOBIN. 10.6 g/dL (12.0-16.0); MEAN CORPUSCULAR HEMOGLOBIN 27.9 pg (28.0-32.0); MEAN CORPUSCULAR VOLUME 86.6 fL (81.0-99.0); MEAN PLATELET VOLUME 7.5 fl (7.4-10.4); MONOCYTES % 7.1 % (2.0-8.0); NEUTROPHILS % 68.8 % (40.0-76.0); PLATELET 85 x1000/uL (130-400); RED CELL DISTRIBUTION WIDTH 21.4 % (11.6-14.6)
[2021-01-10 10:46] LABS: PROTHROMBIN TIME 10.9 sec (9.6-11.0)
[2021-01-10 12:00] VITALS: BP 126/69
[2021-01-10 12:02] LABS: HEPATITIS B SURFACE ANTIGEN NEGATIVE
[2021-01-10 16:00] VITALS: BP 130/78
[2021-01-10] MEDS ORDERED: WARFARIN SODIUM 5MG TABLET PO SCH (18:00)
[2021-01-10 20:00] VITALS: BP 160/97
[2021-01-10] MEDS: CLONIDINE 0.1MG TABLET PO SCH (20:52)
[2021-01-10] MEDS: ZOLPIDEM TARTRATE 5MG TABLET PO PRN (21:38)
[2021-01-11] VITALS: BP 149/78
[2021-01-11] MEDS: HYDROCODONE/ACETAMINOPHEN 5/325MG TABLET PO PRN ×4 (02:48→17:06)
[2021-01-11 04:00] VITALS: BP 120/66
[2021-01-11] MEDS: PANTOPRAZOLE 40MG DR TABLET PO SCH (05:54)
[2021-01-11] MEDS: HYDRALAZINE HCL 100MG TABLET PO SCH ×3 (05:54→22:19)
[2021-01-11 06:31] LABS: PROTHROMBIN TIME 11.2 sec (9.6-11.0)
[2021-01-11 06:46] LABS: BASOPHILS % 0.5 % (0.0-2.0); EOSINOPHILS % 1.4 % (0.0-5.0); HEMATOCRIT. 28.1 % (36.0-48.0); HEMOGLOBIN. 9.2 g/dL (12.0-16.0); MEAN PLATELET VOLUME 7.8 fl (7.4-10.4); MONOCYTES % 7.8 % (2.0-8.0); NEUTROPHILS % 71.3 % (40.0-76.0); PLATELET 71 x1000/uL (130-400); RED BLOOD CELL COUNT 3.27 mill/uL (4.2-5.4)
[2021-01-11 08:00] VITALS: BP 133/72
[2021-01-11] MEDS: FOLIC ACID 1MG TABLET PO SCH (08:54)
[2021-01-11] MEDS: PREDNISONE 10MG TABLET PO SCH (08:54)
[2021-01-11] MEDS: PENTOXIFYLLINE 400MG TABLET PO SCH ×2 (08:54→17:05)
[2021-01-11] MEDS: HYDROXYCHLOROQUINE SULFATE 200MG TABLET PO SCH ×2 (08:54→17:04)
[2021-01-11] MEDS: LORAZEPAM 0.5MG TABLET PO SCH ×2 (08:54→17:05)
[2021-01-11] MEDS: LEVETIRACETAM 500MG TABLET PO SCH ×2 (08:54→22:19)
[2021-01-11] MEDS: METOPROLOL TARTRATE 25MG TABLET PO SCH ×2 (08:55→17:05)
[2021-01-11] MEDS: DILTIAZEM HCL 120MG CAPSULE CD 24HR PO SCH ×2 (08:55→22:17)
[2021-01-11 12:00] VITALS: BP 136/74
[2021-01-11] MEDS ORDERED: POTASSIUM CHLORIDE 20MEQ TABLET SR PO NR (12:00)
[2021-01-11 16:00] VITALS: BP 136/67
[2021-01-11] MEDS ORDERED: WARFARIN SODIUM 5MG TABLET PO SCH (18:00)
[2021-01-11 20:00] VITALS: BP 137/70
[2021-01-11] MEDS: CLONIDINE 0.1MG TABLET PO SCH (21:00)
[2021-01-11] MEDS: ZOLPIDEM TARTRATE 5MG TABLET PO PRN (22:19)
[2021-01-12] VITALS: BP 160/91
[2021-01-12] MEDS: HYDROCODONE/ACETAMINOPHEN 5/325MG TABLET PO PRN ×5 (03:36→23:55)
[2021-01-12 04:00] VITALS: BP 147/85
[2021-01-12] MEDS: HYDRALAZINE HCL 100MG TABLET PO SCH ×3 (06:58→22:23)
[2021-01-12] MEDS: PANTOPRAZOLE 40MG DR TABLET PO SCH (06:58)
[2021-01-12 08:00] VITALS: BP 140/75
[2021-01-12] MEDS: PENTOXIFYLLINE 400MG TABLET PO SCH ×2 (08:10→17:59)
[2021-01-12] MEDS: HYDROXYCHLOROQUINE SULFATE 200MG TABLET PO SCH ×2 (08:10→17:57)
[2021-01-12] MEDS: DILTIAZEM HCL 120MG CAPSULE CD 24HR PO SCH ×2 (08:10→22:23)
[2021-01-12] MEDS: LEVETIRACETAM 500MG TABLET PO SCH ×2 (08:10→22:23)
[2021-01-12] MEDS: PREDNISONE 10MG TABLET PO SCH (08:11)
[2021-01-12] MEDS: METOPROLOL TARTRATE 25MG TABLET PO SCH ×2 (08:11→17:59)
[2021-01-12] MEDS: LORAZEPAM 0.5MG TABLET PO SCH ×2 (08:11→17:59)
[2021-01-12] MEDS: FOLIC ACID 1MG TABLET PO SCH (08:11)
[2021-01-12 09:29] LABS: BASOPHILS % 0.4 % (0.0-2.0); EOSINOPHILS % 1.2 % (0.0-5.0); HEMATOCRIT. 31.6 % (36.0-48.0); HEMOGLOBIN. 10.3 g/dL (12.0-16.0); LYMPHOCYTES % 20.5 % (20.0-50.0); MEAN PLATELET VOLUME 7.6 fl (7.4-10.4); MONOCYTES % 6.9 % (2.0-8.0); PLATELET 89 x1000/uL (130-400); RED BLOOD CELL COUNT 3.68 mill/uL (4.2-5.4)
[2021-01-12 09:34] LABS: INR 1.3; PROTHROMBIN TIME 13.6 sec (9.6-11.0)
[2021-01-12 12:00] VITALS: BP 129/73
[2021-01-12 16:00] VITALS: BP 159/71
[2021-01-12] MEDS ORDERED: WARFARIN SODIUM 5MG TABLET PO SCH (18:00)
[2021-01-12] MEDS ORDERED: METO-539 PO (19:27)
[2021-01-12 20:00] VITALS: BP 131/74
[2021-01-12] MEDS ORDERED: HYDR200T35 PO (20:18)
[2021-01-12] MEDS ORDERED: PRED10TA23 PO (20:24)
[2021-01-12] MEDS ORDERED: PRED10TA PO (20:29)
[2021-01-12] MEDS ORDERED: AMLO10TA80 PO (20:29)
[2021-01-12] MEDS ORDERED: TEMA15CA PO (20:46)
[2021-01-12] MEDS: CLONIDINE 0.1MG TABLET PO SCH (22:23)
[2021-01-12] MEDS: ZOLPIDEM TARTRATE 5MG TABLET PO PRN (22:23)
[2021-01-13 00:33] VITALS: BP 121/73
[2021-01-13 04:00] VITALS: BP 138/71
[2021-01-13] MEDS: HYDROCODONE/ACETAMINOPHEN 5/325MG TABLET PO PRN ×3 (05:34→15:10)
[2021-01-13] MEDS: DOCUSATE SODIUM 100MG CAPSULE PO PRN (05:34)
[2021-01-13] MEDS: PANTOPRAZOLE 40MG DR TABLET PO SCH (05:35)
[2021-01-13] MEDS: HYDRALAZINE HCL 100MG TABLET PO SCH ×3 (05:35→22:00)
[2021-01-13 08:00] VITALS: BP 131/65
[2021-01-13 08:28] LABS: BASOPHILS % 0.6 % (0.0-2.0); EOSINOPHILS % 1.6 % (0.0-5.0); HEMATOCRIT. 34.2 % (36.0-48.0); HEMOGLOBIN. 10.4 g/dL (12.0-16.0); LYMPHOCYTES % 22.5 % (20.0-50.0); MEAN CORPUSCULAR VOLUME 91.6 fL (81.0-99.0); MEAN PLATELET VOLUME 7.5 fl (7.4-10.4); MONOCYTES % 7.9 % (2.0-8.0); NEUTROPHILS % 67.4 % (40.0-76.0); PLATELET 89 x1000/uL (130-400); RED BLOOD CELL COUNT 3.73 mill/uL (4.2-5.4); RED CELL DISTRIBUTION WIDTH 20.8 % (11.6-14.6)
[2021-01-13 08:38] LABS: INR 1.6; PROTHROMBIN TIME 16.8 sec (9.6-11.0)
[2021-01-13] MEDS: HYDROXYCHLOROQUINE SULFATE 200MG TABLET PO SCH ×2 (09:53→16:59)
[2021-01-13] MEDS: DILTIAZEM HCL 120MG CAPSULE CD 24HR PO SCH ×2 (09:53→21:29)
[2021-01-13] MEDS: LEVETIRACETAM 500MG TABLET PO SCH ×2 (09:53→21:38)
[2021-01-13] MEDS: METOPROLOL TARTRATE 25MG TABLET PO SCH ×2 (09:54→16:59)
[2021-01-13] MEDS: FOLIC ACID 1MG TABLET PO SCH (09:54)
[2021-01-13] MEDS: PENTOXIFYLLINE 400MG TABLET PO SCH ×2 (09:54→16:59)
[2021-01-13] MEDS: PREDNISONE 10MG TABLET PO SCH (09:57)
[2021-01-13 12:00] VITALS: BP 119/70
[2021-01-13 16:00] VITALS: BP 128/70
[2021-01-13] MEDS ORDERED: WARFARIN SODIUM 5MG TABLET PO NR (18:00)
[2021-01-13 20:00] VITALS: BP 134/75
[2021-01-13] MEDS: ENOXAPARIN 150MG/ML SYR SUBCUT SCH (21:31)
[2021-01-13] MEDS: CLONIDINE 0.1MG TABLET PO SCH (21:32)
[2021-01-13] MEDS ORDERED: ZOLPIDEM TARTRATE 5MG TABLET PO PRN (22:00)
[2021-01-14] VITALS: BP_SYST 147; BP_SYST 157; BP_DIAS 87; BP_DIAS 90
[2021-01-14] MEDS: HYDROCODONE/ACETAMINOPHEN 5/325MG TABLET PO PRN ×4 (03:05→18:11)
[2021-01-14 04:00] VITALS: BP 147/87
[2021-01-14] MEDS: PANTOPRAZOLE 40MG DR TABLET PO SCH (06:25)
[2021-01-14] MEDS: HYDRALAZINE HCL 100MG TABLET PO SCH ×3 (06:27→22:52)
[2021-01-14 07:12] LABS: BASOPHILS % 0.9 % (0.0-2.0); HEMATOCRIT. 28.8 % (36.0-48.0); HEMOGLOBIN. 9.7 g/dL (12.0-16.0); LYMPHOCYTES % 20.3 % (20.0-50.0); MEAN CORPUSCULAR HEMOGLOBIN 28.5 pg (28.0-32.0); MEAN CORPUSCULAR VOLUME 85.1 fL (81.0-99.0); MEAN PLATELET VOLUME 8.2 fl (7.4-10.4); MONOCYTES % 7.3 % (2.0-8.0); NEUTROPHILS % 70.5 % (40.0-76.0); PLATELET 105 x1000/uL (130-400); RED BLOOD CELL COUNT 3.39 mill/uL (4.2-5.4); RED CELL DISTRIBUTION WIDTH 20.5 % (11.6-14.6)
[2021-01-14 07:28] LABS: INR 2.1; PROTHROMBIN TIME 20.9 sec (9.6-11.0)
[2021-01-14 08:00] VITALS: BP 135/84
[2021-01-14] MEDS: DILTIAZEM HCL 120MG CAPSULE CD 24HR PO SCH ×2 (08:39→20:42)
[2021-01-14] MEDS: PENTOXIFYLLINE 400MG TABLET PO SCH ×2 (08:39→18:11)
[2021-01-14] MEDS: PREDNISONE 10MG TABLET PO SCH (08:39)
[2021-01-14] MEDS: LEVETIRACETAM 500MG TABLET PO SCH ×2 (08:39→20:43)
[2021-01-14] MEDS: ERGOCALCIFEROL 50000UNITS CAPSULE PO SCH (08:39)
[2021-01-14] MEDS: FOLIC ACID 1MG TABLET PO SCH (08:39)
[2021-01-14] MEDS: METOPROLOL TARTRATE 25MG TABLET PO SCH ×2 (08:39→18:11)
[2021-01-14] MEDS: ENOXAPARIN 150MG/ML SYR SUBCUT SCH (08:40)
[2021-01-14] MEDS: HYDROXYCHLOROQUINE SULFATE 200MG TABLET PO SCH ×2 (08:42→18:10)
[2021-01-14 08:49] LABS: CHLORIDE 113 mEq/L (98-107)
[2021-01-14] MEDS ORDERED: POTASSIUM CHLORIDE 20MEQ TABLET SR PO NR (11:15)
[2021-01-14 12:00] VITALS: BP 128/63
[2021-01-14 13:10] LABS: ANTI-CARDIOLIPIN AB IGG 35 GPL U/mL (0-14); ANTI-CARDIOLIPIN AB IGM 13 MPL U/mL (0-12)
[2021-01-14 16:00] VITALS: BP 127/74
[2021-01-14] MEDS ORDERED: WARFARIN SODIUM 2MG TABLET PO SCH (18:00)
[2021-01-14 20:00] VITALS: BP 131/75
[2021-01-14] MEDS: CLONIDINE 0.1MG TABLET PO SCH (20:43)
[2021-01-14] MEDS: ZOLPIDEM TARTRATE 5MG TABLET PO PRN (22:52)
[2021-01-15] VITALS: BP 120/75
[2021-01-15] MEDS: HYDROCODONE/ACETAMINOPHEN 5/325MG TABLET PO PRN ×5 (02:16→21:41)
[2021-01-15 04:00] VITALS: BP 143/87
[2021-01-15] MEDS: HYDRALAZINE HCL 100MG TABLET PO SCH ×3 (06:17→21:40)
[2021-01-15] MEDS: PANTOPRAZOLE 40MG DR TABLET PO SCH (06:17)
[2021-01-15 07:37] LABS: INR 2.4; PROTHROMBIN TIME 23.8 sec (9.6-11.0)
[2021-01-15 08:00] VITALS: BP 135/79
[2021-01-15] MEDS: HYDROXYCHLOROQUINE SULFATE 200MG TABLET PO SCH ×2 (09:21→17:04)
[2021-01-15] MEDS: DILTIAZEM HCL 120MG CAPSULE CD 24HR PO SCH ×2 (09:21→21:39)
[2021-01-15] MEDS: LEVETIRACETAM 500MG TABLET PO SCH ×2 (09:21→21:40)
[2021-01-15] MEDS: METOPROLOL TARTRATE 25MG TABLET PO SCH ×2 (09:22→17:04)
[2021-01-15] MEDS: FOLIC ACID 1MG TABLET PO SCH (09:22)
[2021-01-15] MEDS: PENTOXIFYLLINE 400MG TABLET PO SCH ×2 (09:22→17:04)
[2021-01-15] MEDS: PREDNISONE 10MG TABLET PO SCH (09:22)
[2021-01-15 12:00] VITALS: BP 110/55
[2021-01-15 16:00] VITALS: BP 117/63
[2021-01-15] MEDS ORDERED: WARFARIN SODIUM 2MG TABLET PO SCH (18:00)
[2021-01-15 20:00] VITALS: BP 159/93
[2021-01-15] MEDS: CLONIDINE 0.1MG TABLET PO SCH (21:40)
[2021-01-15] MEDS: ZOLPIDEM TARTRATE 5MG TABLET PO PRN (23:07)
[2021-01-16] VITALS: BP 128/78
[2021-01-16] MEDS: HYDROCODONE/ACETAMINOPHEN 5/325MG TABLET PO PRN ×4 (03:41→20:58)
[2021-01-16 04:00] VITALS: BP 132/76
[2021-01-16] MEDS: HYDRALAZINE HCL 100MG TABLET PO SCH ×3 (06:14→22:15)
[2021-01-16] MEDS: PANTOPRAZOLE 40MG DR TABLET PO SCH (06:14)
[2021-01-16 07:36] LABS: INR 2.2; PROTHROMBIN TIME 21.9 sec (9.6-11.0)
[2021-01-16 08:00] VITALS: BP 129/69
[2021-01-16] MEDS: LEVETIRACETAM 500MG TABLET PO SCH ×2 (09:53→20:59)
[2021-01-16] MEDS: PENTOXIFYLLINE 400MG TABLET PO SCH (09:53)
[2021-01-16] MEDS: PREDNISONE 10MG TABLET PO SCH (09:54)
[2021-01-16] MEDS: METOPROLOL TARTRATE 25MG TABLET PO SCH ×2 (09:54→17:03)
[2021-01-16] MEDS: DILTIAZEM HCL 120MG CAPSULE CD 24HR PO SCH ×2 (09:54→20:59)
[2021-01-16] MEDS: HYDROXYCHLOROQUINE SULFATE 200MG TABLET PO SCH ×2 (09:54→17:03)
[2021-01-16] MEDS: FOLIC ACID 1MG TABLET PO SCH (09:54)
[2021-01-16 12:00] VITALS: BP 136/50
[2021-01-16 16:00] VITALS: BP 129/65
[2021-01-16] MEDS ORDERED: WARFARIN SODIUM 3MG TABLET PO SCH (18:00)
[2021-01-16 20:00] VITALS: BP 160/86
[2021-01-16] MEDS: ZOLPIDEM TARTRATE 5MG TABLET PO PRN (22:15)
[2021-01-17] VITALS: BP 154/60
[2021-01-17] MEDS: CLONIDINE 0.1MG TABLET PO SCH (01:48)
[2021-01-17] MEDS: HYDROCODONE/ACETAMINOPHEN 5/325MG TABLET PO PRN ×5 (02:14→19:41)
[2021-01-17 04:00] VITALS: BP 148/90
[2021-01-17] MEDS: PANTOPRAZOLE 40MG DR TABLET PO SCH (05:54)
[2021-01-17] MEDS: HYDRALAZINE HCL 100MG TABLET PO SCH ×3 (05:54→23:14)
[2021-01-17 05:55] LABS: INR 2.2; PROTHROMBIN TIME 22.4 sec (9.6-11.0)
[2021-01-17 08:00] VITALS: BP 113/67
[2021-01-17] MEDS: HYDROXYCHLOROQUINE SULFATE 200MG TABLET PO SCH ×2 (08:18→17:18)
[2021-01-17] MEDS: FOLIC ACID 1MG TABLET PO SCH (08:19)
[2021-01-17] MEDS: PREDNISONE 10MG TABLET PO SCH (08:19)
[2021-01-17] MEDS: LEVETIRACETAM 500MG TABLET PO SCH ×2 (08:19→20:47)
[2021-01-17] MEDS: PENTOXIFYLLINE 400MG TABLET PO SCH ×2 (08:19→17:18)
[2021-01-17] MEDS: DILTIAZEM HCL 120MG CAPSULE CD 24HR PO SCH ×2 (08:22→20:47)
[2021-01-17] MEDS: METOPROLOL TARTRATE 25MG TABLET PO SCH ×2 (08:22→17:19)
[2021-01-17 12:00] VITALS: BP 135/58
[2021-01-17 16:30] VITALS: BP 140/83
[2021-01-17] MEDS ORDERED: WARFARIN SODIUM 1MG TABLET PO SCH (18:00)
[2021-01-17] MEDS ORDERED: WARFARIN SODIUM 2.5MG TABLET PO SCH (18:00)
[2021-01-17 20:00] VITALS: BP 137/70
[2021-01-17] MEDS: ZOLPIDEM TARTRATE 5MG TABLET PO PRN (23:14)
[2021-01-18] VITALS: BP 148/75
[2021-01-18] MEDS: CLONIDINE 0.1MG TABLET PO SCH ×2 (02:32→20:25)
[2021-01-18 04:00] VITALS: BP 139/72
[2021-01-18] MEDS: HYDROCODONE/ACETAMINOPHEN 5/325MG TABLET PO PRN ×4 (05:54→19:36)
[2021-01-18] MEDS: PANTOPRAZOLE 40MG DR TABLET PO SCH (05:54)
[2021-01-18] MEDS: HYDRALAZINE HCL 100MG TABLET PO SCH ×3 (05:54→23:48)
[2021-01-18 07:27] LABS: HEMATOCRIT 31.4 % (36.0-48.0); HEMOGLOBIN 9.9 g/dL (12.0-16.0); MEAN CORPUSCULAR HEMOGLOBIN 27.5 pg (28.0-32.0); MEAN CORPUSCULAR VOLUME 86.8 fL (81.0-99.0); PLATELET 185 x1000/uL (130-400); RED BLOOD CELL COUNT 3.62 mill/uL (4.2-5.4); RED CELL DISTRIBUTION WIDTH 20.4 % (11.6-14.6)
[2021-01-18 07:38] LABS: INR 2.5; PROTHROMBIN TIME 24.8 sec (9.6-11.0)
[2021-01-18 08:00] VITALS: BP 99/64
[2021-01-18] MEDS: DILTIAZEM HCL 120MG CAPSULE CD 24HR PO SCH ×2 (09:00→20:25)
[2021-01-18] MEDS: METOPROLOL TARTRATE 25MG TABLET PO SCH ×2 (09:00→17:02)
[2021-01-18] MEDS: FOLIC ACID 1MG TABLET PO SCH (09:03)
[2021-01-18] MEDS: LEVETIRACETAM 500MG TABLET PO SCH ×2 (09:03→20:25)
[2021-01-18] MEDS: PREDNISONE 10MG TABLET PO SCH (09:04)
[2021-01-18] MEDS: PENTOXIFYLLINE 400MG TABLET PO SCH ×2 (09:04→17:01)
[2021-01-18] MEDS: HYDROXYCHLOROQUINE SULFATE 200MG TABLET PO SCH ×2 (09:04→17:01)
[2021-01-18 12:00] VITALS: BP 132/69
[2021-01-18 16:00] VITALS: BP 126/69
[2021-01-18] MEDS ORDERED: WARFARIN SODIUM 3MG TABLET PO NR (18:00)
[2021-01-18 20:00] VITALS: BP 138/70
[2021-01-18] MEDS: ZOLPIDEM TARTRATE 5MG TABLET PO PRN (23:48)
[2021-01-19] VITALS: BP 134/80
[2021-01-19 04:00] VITALS: BP 117/84
[2021-01-19] MEDS: HYDROCODONE/ACETAMINOPHEN 5/325MG TABLET PO PRN ×4 (05:48→20:54)
[2021-01-19] MEDS: HYDRALAZINE HCL 100MG TABLET PO SCH ×3 (05:48→21:02)
[2021-01-19] MEDS: PANTOPRAZOLE 40MG DR TABLET PO SCH (05:48)
[2021-01-19 06:14] LABS: BASOPHILS % 0.8 % (0.0-2.0); HEMATOCRIT. 31.5 % (36.0-48.0); HEMOGLOBIN. 10.1 g/dL (12.0-16.0); LYMPHOCYTES % 21.7 % (20.0-50.0); MEAN CORPUSCULAR HEMOGLOBIN 28.1 pg (28.0-32.0); MEAN CORPUSCULAR VOLUME 87.1 fL (81.0-99.0); MEAN PLATELET VOLUME 7.5 fl (7.4-10.4); NEUTROPHILS % 68.5 % (40.0-76.0); PLATELET 204 x1000/uL (130-400); RED BLOOD CELL COUNT 3.62 mill/uL (4.2-5.4)
[2021-01-19 06:31] LABS: INR 2.7; PROTHROMBIN TIME 26.9 sec (9.6-11.0)
[2021-01-19 08:00] VITALS: BP 148/94
[2021-01-19] MEDS: LEVETIRACETAM 500MG TABLET PO SCH ×2 (08:49→20:54)
[2021-01-19] MEDS: PENTOXIFYLLINE 400MG TABLET PO SCH ×2 (08:49→17:34)
[2021-01-19] MEDS: FOLIC ACID 1MG TABLET PO SCH (08:49)
[2021-01-19] MEDS: HYDROXYCHLOROQUINE SULFATE 200MG TABLET PO SCH ×2 (08:50→17:34)
[2021-01-19] MEDS: DILTIAZEM HCL 120MG CAPSULE CD 24HR PO SCH ×2 (08:50→20:55)
[2021-01-19] MEDS: METOPROLOL TARTRATE 25MG TABLET PO SCH ×2 (08:50→17:35)
[2021-01-19] MEDS: PREDNISONE 10MG TABLET PO SCH (08:50)
[2021-01-19 12:00] VITALS: BP 132/67
[2021-01-19] MEDS ORDERED: POTASSIUM CHLORIDE 20MEQ TABLET SR PO NR (14:15)
[2021-01-19 16:00] VITALS: BP 132/72
[2021-01-19] MEDS ORDERED: WARFARIN SODIUM 3MG TABLET PO SCH (18:00)
[2021-01-19 20:00] VITALS: BP 131/69
[2021-01-19] MEDS: CLONIDINE 0.1MG TABLET PO SCH (20:56)
[2021-01-20] VITALS: BP 117/68
[2021-01-20] MEDS ORDERED: ZOLPIDEM TARTRATE 5MG TABLET PO PRN (00:15)
[2021-01-20] MEDS: HYDROCODONE/ACETAMINOPHEN 5/325MG TABLET PO PRN ×3 (03:38→13:47)
[2021-01-20 04:00] VITALS: BP 154/86
[2021-01-20] MEDS: HYDRALAZINE HCL 100MG TABLET PO SCH ×2 (06:36→13:46)
[2021-01-20] MEDS: PANTOPRAZOLE 40MG DR TABLET PO SCH (06:36)
[2021-01-20 07:51] LABS: INR 3.1; PROTHROMBIN TIME 30.7 sec (9.6-11.0)
[2021-01-20 08:00] VITALS: BP 154/86
[2021-01-20 08:34] LABS: CHLORIDE 117 mEq/L (98-107)
[2021-01-20] MEDS: HYDROXYCHLOROQUINE SULFATE 200MG TABLET PO SCH (09:13)
[2021-01-20] MEDS: METOPROLOL TARTRATE 25MG TABLET PO SCH (09:13)
[2021-01-20] MEDS: DILTIAZEM HCL 120MG CAPSULE CD 24HR PO SCH (09:13)
[2021-01-20] MEDS: FOLIC ACID 1MG TABLET PO SCH (09:13)
[2021-01-20] MEDS: LEVETIRACETAM 500MG TABLET PO SCH (09:14)
[2021-01-20] MEDS: PREDNISONE 10MG TABLET PO SCH (09:14)
[2021-01-20] MEDS: PENTOXIFYLLINE 400MG TABLET PO SCH (09:16)
[2021-01-20 12:00] VITALS: BP 136/67
[2021-01-20] MEDS ORDERED: FOLI-43 PO ×2 (12:03)
[2021-01-20] MEDS ORDERED: DILT120C88 PO ×2 (12:03)
[2021-01-20] MEDS ORDERED: PANT40TA51 PO ×2 (12:03)
[2021-01-20] MEDS ORDERED: PENT400T16 PO (12:03)
[2021-01-20] MEDS ORDERED: METO25TA6 PO ×2 (12:03)
[2021-01-20 14:56] VITALS: BP 136/67
[2021-01-20] MEDS ORDERED: METO25TA6 MT (15:08)
[2021-01-20] MEDS ORDERED: FOLI-43 MT (15:08)
[2021-01-20] MEDS ORDERED: PANT40TA51 MT (15:08)
[2021-01-20] MEDS ORDERED: DILT240C96 MT (15:08)
[2021-01-20] MEDS ORDERED: WARFARIN SODIUM 2.5MG TABLET PO NR (18:00)
[2021-01-22] MEDS ORDERED: WARF2.5T83 MT (18:12)
== END 2021-01-20 15:45 | disposition home health service (06) | DRG 77 ==
LOC: ER 05:38 → EDBEDREQ 11:30 → EDBEDREQTM 12:16 → EDBEDREQ 12:16 → ENRESERV 13:07 → CANRESERV 13:07 → ENRESERV 13:21 → 7EST 16:57
PROVIDERS: ADMIT Internal Medicine; ATTEND Internal Medicine
DX: I67.4 Hypertensive encephalopathy (principal); R65.11 Systemic inflammatory response syndrome (SIRS) of non-infectious origin with acute organ dysfunction; D68.61 Antiphospholipid syndrome; G82.20 Paraplegia, unspecified; N17.9 Acute kidney failure, unspecified; Z68.41 Body mass index [BMI] 40.0-44.9, adult; G81.14 Spastic hemiplegia affecting left nondominant side; I12.9 Hypertensive chronic kidney disease with stage 1 through stage 4 chronic kidney disease, or unspecified chronic kidney disease; N18.9 Chronic kidney disease, unspecified; R32 Unspecified urinary incontinence; D50.9 Iron deficiency anemia, unspecified; G40.909 Epilepsy, unspecified, not intractable, without status epilepticus; D69.6 Thrombocytopenia, unspecified; R74.01 Elevation of levels of liver transaminase levels; M48.9 Spondylopathy, unspecified; E11.22 Type 2 diabetes mellitus with diabetic chronic kidney disease; E66.01 Morbid (severe) obesity due to excess calories; E78.00 Pure hypercholesterolemia, unspecified; E87.6 Hypokalemia; R26.9 Unspecified abnormalities of gait and mobility; K76.0 Fatty (change of) liver, not elsewhere classified; M06.9 Rheumatoid arthritis, unspecified; M32.9 Systemic lupus erythematosus, unspecified; H53.462 Homonymous bilateral field defects, left side; M19.90 Unspecified osteoarthritis, unspecified site; Z79.01 Long term (current) use of anticoagulants; Z82.49 Family history of ischemic heart disease and other diseases of the circulatory system; Z91.19 Patient's noncompliance with other medical treatment and regimen; Z86.718 Personal history of other venous thrombosis and embolism; Z86.73 Personal history of transient ischemic attack (TIA), and cerebral infarction without residual deficits; Z88.0 Allergy status to penicillin; Z91.013 Allergy to seafood; Z91.040 Latex allergy status; Z88.8 Allergy status to other drugs, medicaments and biological substances; D72.829 Elevated white blood cell count, unspecified
CPT/HCPCS: 36415; 76700; 80048; 80053; 80076; 85025; 85027; 86147; 86705; 86709; 86803; 87340; 93005; 97112; 97162; 97164; 97166; 97530; 99285; C1893; J1650; J2270; J2405; J7512

== ENCOUNTER 2021-01-25 15:37 | Inpatient (IN) | payer MEDICARE, MEDICAID ==
[~2021-01-25] VITALS: Ht 167.6 cm; Wt 106.1 kg
[~2021-01-25 15:37] MED LIST changes: -DILT120C88 PO; +DILT240C96 MT; -ERGO500013 PO; +FOLI-43 MT; -FOLI-43 PO; +HYDR200T35 PO; -HYDR200T80 PO; -LEVO250T58 MT; -LIP40 PO; +METO25TA6 MT; -METO25TA6 PO; -ONDA8TAB6 PO; +PANT40TA51 MT; -PANT40TA51 PO; +TEMA15CA PO; +WARF2.5T83 MT
[2021-01-25] MEDS ORDERED: VANCOMYCIN 1 G PREMIX 200 ML IV SCH (17:15)
[2021-01-25] MEDS ORDERED: LEVOFLOXACIN 750MG PREMIX 150 ML IV ONE (17:15)
[2021-01-25 17:23] LABS: BASOPHILS % 0.5 % (0.0-2.0); EOSINOPHILS % 1.9 % (0.0-5.0); HEMATOCRIT. 33.1 % (36.0-48.0); LYMPHOCYTES % 24.5 % (20.0-50.0); MEAN CORPUSCULAR HEMOGLOBIN 28.3 pg (28.0-32.0); MEAN CORPUSCULAR VOLUME 85.6 fL (81.0-99.0); MEAN PLATELET VOLUME 7.1 fl (7.4-10.4); MONOCYTES % 7.7 % (2.0-8.0); NEUTROPHILS % 65.4 % (40.0-76.0); PLATELET 299 x1000/uL (130-400); RED BLOOD CELL COUNT 3.87 mill/uL (4.2-5.4); RED CELL DISTRIBUTION WIDTH 20.1 % (11.6-14.6)
[2021-01-25 17:33] LABS: INR 2.7; PARTIAL THROMBOPLASTIN TIME 40.3 sec (23.4-31.0); PROTHROMBIN TIME 27.1 sec (9.6-11.0)
[2021-01-25 17:36] LABS: CHLORIDE 116 mEq/L (98-107)
[2021-01-25] MEDS ORDERED: ONDANSETRON HCL 4MG/2ML INJ IV STA (20:09)
[2021-01-25] MEDS ORDERED: MORPHINE SULFATE 4 MG/ML CPJ (NOT FOR IM USE) IV STA (20:09)
[2021-01-25] MEDS ORDERED: DEXAMETHASONE 10 MG/ML VIAL IV ONE (21:00)
[2021-01-25] MEDS ORDERED: IOHEXOL-300 100 ML BOTTLE ONE (22:14)
[2021-01-26 01:00] VITALS: BP 160/91
[2021-01-26 04:00] VITALS: BP 175/106
[2021-01-26] MEDS ORDERED: VANCOMYCIN 1 G PREMIX 200 ML IV SCH ×2 (04:45→09:00)
[2021-01-26] MEDS ORDERED: ONDANSETRON HCL 4MG/2ML INJ IV PRN (04:45)
[2021-01-26] MEDS ORDERED: DEXTROSE 50% WATER 50ML SYRINGE IV PRN (04:45)
[2021-01-26] MEDS ORDERED: TEMAZEPAM 15MG CAPSULE PO PRN (05:00)
[2021-01-26] MEDS: MORPHINE SULFATE 2 MG/ML CPJ (NOT FOR IM USE) IV PRN ×2 (06:17→13:57)
[2021-01-26] MEDS: PANTOPRAZOLE 40MG DR TABLET PO SCH (06:35)
[2021-01-26] MEDS: BLOOD SUGAR DIAGNOSTIC STRIP TEST SCH ×4 (06:35→21:39)
[2021-01-26] MEDS: HYDRALAZINE HCL 100MG TABLET PO SCH ×3 (06:35→21:39)
[2021-01-26] MEDS: INSULIN LISPRO 100 UNITS/ML SUBCUT SCH ×4 (06:36→21:51)
[2021-01-26] MEDS ORDERED: NALOXONE HCL 0.4MG/ML VIAL IV PRN (07:15)
[2021-01-26 07:47] LABS: HEMATOCRIT. 30.8 % (36.0-48.0); HEMOGLOBIN. 10.2 g/dL (12.0-16.0); MEAN CORPUSCULAR HEMOGLOBIN 28.6 pg (28.0-32.0); MEAN CORPUSCULAR VOLUME 86.4 fL (81.0-99.0); MEAN PLATELET VOLUME 7.2 fl (7.4-10.4); PLATELET 279 x1000/uL (130-400); RED BLOOD CELL COUNT 3.57 mill/uL (4.2-5.4); RED CELL DISTRIBUTION WIDTH 19.4 % (11.6-14.6)
[2021-01-26 08:00] VITALS: BP 162/98
[2021-01-26] MEDS: PREDNISONE 10MG TABLET PO SCH ×2 (08:47→17:26)
[2021-01-26] MEDS: METOPROLOL TARTRATE 25MG TABLET PO SCH ×2 (08:48→21:39)
[2021-01-26] MEDS: HYDROXYCHLOROQUINE SULFATE 200MG TABLET PO SCH (08:48)
[2021-01-26] MEDS: LEVETIRACETAM 500MG TABLET PO SCH ×2 (08:48→21:39)
[2021-01-26] MEDS: LORAZEPAM 0.5MG TABLET PO SCH ×2 (08:48→21:38)
[2021-01-26] MEDS: DILTIAZEM HCL 120MG CAPSULE CD 24HR PO SCH (08:49)
[2021-01-26] MEDS: PENTOXIFYLLINE 400MG TABLET PO SCH ×2 (08:50→22:17)
[2021-01-26] MEDS ORDERED: ENOXAPARIN 40MG/0.4ML SYR SUBCUT SCH (09:00)
[2021-01-26] MEDS: HYDROCODONE/ACETAMINOPHEN 5/325MG TABLET PO PRN ×3 (09:01→21:25)
[2021-01-26 09:26] LABS: INR 2.7; PROTHROMBIN TIME 26.6 sec (9.6-11.0)
[2021-01-26] MEDS ORDERED: LEVOFLOXACIN 250MG PREMIX 50 ML IV SCH (11:00)
[2021-01-26 12:00] VITALS: BP 147/83
[2021-01-26 16:00] VITALS: BP 141/84
[2021-01-26] MEDS: WARFARIN SODIUM 2.5MG TABLET PO SCH (17:26)
[2021-01-26 20:00] VITALS: BP 152/86
[2021-01-26 20:39] LABS: PLATELET ESTIMATE NORMAL
[2021-01-26] MEDS: CLONIDINE 0.1MG TABLET PO SCH (21:38)
[2021-01-26] MEDS: CIPROFLOXACIN 0.3% OPHTH SOLN 2.5ML LEFTEYE SCH (21:40)
[2021-01-26] MEDS: PREDNISOLONE ACETATE 1% OPHTH DROPS 5ML LEFTEYE SCH (21:40)
[2021-01-27] VITALS: BP 112/65
[2021-01-27 04:00] VITALS: BP 118/59
[2021-01-27] MEDS: HYDROCODONE/ACETAMINOPHEN 5/325MG TABLET PO PRN ×2 (05:15→13:27)
[2021-01-27] MEDS: PANTOPRAZOLE 40MG DR TABLET PO SCH (05:15)
[2021-01-27] MEDS: HYDRALAZINE HCL 100MG TABLET PO SCH ×3 (05:15→23:08)
[2021-01-27 06:18] LABS: INR 2.7; PROTHROMBIN TIME 26.6 sec (9.6-11.0)
[2021-01-27] MEDS: BLOOD SUGAR DIAGNOSTIC STRIP TEST SCH ×4 (06:18→21:19)
[2021-01-27] MEDS: INSULIN LISPRO 100 UNITS/ML SUBCUT SCH ×4 (06:18→21:20)
[2021-01-27 08:00] VITALS: BP 132/73
[2021-01-27] MEDS: PREDNISONE 10MG TABLET PO SCH ×2 (08:18→17:39)
[2021-01-27] MEDS: METOPROLOL TARTRATE 25MG TABLET PO SCH ×2 (08:18→21:00)
[2021-01-27] MEDS: PREDNISOLONE ACETATE 1% OPHTH DROPS 5ML LEFTEYE SCH ×4 (08:19→21:15)
[2021-01-27] MEDS: CIPROFLOXACIN 0.3% OPHTH SOLN 2.5ML LEFTEYE SCH ×4 (08:19→21:13)
[2021-01-27] MEDS: HYDROXYCHLOROQUINE SULFATE 200MG TABLET PO SCH (08:19)
[2021-01-27] MEDS: LORAZEPAM 0.5MG TABLET PO SCH ×2 (08:19→21:15)
[2021-01-27] MEDS: PENTOXIFYLLINE 400MG TABLET PO SCH ×2 (08:19→21:16)
[2021-01-27] MEDS: DILTIAZEM HCL 120MG CAPSULE CD 24HR PO SCH (08:19)
[2021-01-27] MEDS: LEVETIRACETAM 500MG TABLET PO SCH ×2 (08:19→21:16)
[2021-01-27] MEDS: MORPHINE SULFATE 2 MG/ML CPJ (NOT FOR IM USE) IV PRN ×3 (10:13→21:35)
[2021-01-27 12:00] VITALS: BP 140/78
[2021-01-27 16:00] VITALS: BP 129/61
[2021-01-27] MEDS: WARFARIN SODIUM 2.5MG TABLET PO SCH (17:39)
[2021-01-27 20:00] VITALS: BP 109/70
[2021-01-27] MEDS: CLONIDINE 0.1MG TABLET PO SCH (21:00)
[2021-01-27] MEDS: ZOLPIDEM TARTRATE 5MG TABLET PO PRN (23:08)
[2021-01-28] VITALS: BP 133/72
[2021-01-28 04:00] VITALS: BP 132/72
[2021-01-28] MEDS: HYDROCODONE/ACETAMINOPHEN 5/325MG TABLET PO PRN ×3 (06:15→20:37)
[2021-01-28] MEDS: HYDRALAZINE HCL 100MG TABLET PO SCH ×3 (06:16→20:36)
[2021-01-28] MEDS: BLOOD SUGAR DIAGNOSTIC STRIP TEST SCH ×4 (06:32→20:44)
[2021-01-28] MEDS: FAMOTIDINE 20MG TABLET PO SCH (06:32)
[2021-01-28] MEDS: PREDNISONE 10MG TABLET PO SCH ×2 (06:32→16:10)
[2021-01-28] MEDS: INSULIN LISPRO 100 UNITS/ML SUBCUT SCH ×4 (06:33→20:39)
[2021-01-28 07:27] LABS: INR 2.8; PROTHROMBIN TIME 27.5 sec (9.6-11.0)
[2021-01-28 08:00] VITALS: BP 144/76
[2021-01-28] MEDS: PENTOXIFYLLINE 400MG TABLET PO SCH ×2 (09:34→20:35)
[2021-01-28] MEDS: DILTIAZEM HCL 120MG CAPSULE CD 24HR PO SCH (09:34)
[2021-01-28] MEDS: LEVETIRACETAM 500MG TABLET PO SCH ×2 (09:34→20:36)
[2021-01-28] MEDS: METOPROLOL TARTRATE 25MG TABLET PO SCH ×2 (09:35→20:35)
[2021-01-28] MEDS: PREDNISOLONE ACETATE 1% OPHTH DROPS 5ML LEFTEYE SCH ×4 (09:35→20:43)
[2021-01-28] MEDS: HYDROXYCHLOROQUINE SULFATE 200MG TABLET PO SCH (09:35)
[2021-01-28] MEDS: CIPROFLOXACIN 0.3% OPHTH SOLN 2.5ML LEFTEYE SCH ×4 (09:35→20:43)
[2021-01-28] MEDS: MORPHINE SULFATE 2 MG/ML CPJ (NOT FOR IM USE) IV PRN ×2 (09:37→16:04)
[2021-01-28] MEDS: LORAZEPAM 0.5MG TABLET PO SCH ×2 (10:18→20:36)
[2021-01-28 12:00] VITALS: BP 157/90
[2021-01-28 16:00] VITALS: BP 141/76
[2021-01-28] MEDS: WARFARIN SODIUM 2.5MG TABLET PO SCH (17:17)
[2021-01-28 20:00] VITALS: BP 163/82
[2021-01-28] MEDS: CLONIDINE 0.1MG TABLET PO SCH (20:36)
[2021-01-28] MEDS: ZOLPIDEM TARTRATE 5MG TABLET PO PRN (22:20)
[2021-01-29] VITALS: BP 146/80
[2021-01-29] MEDS: MORPHINE SULFATE 2 MG/ML CPJ (NOT FOR IM USE) IV PRN ×3 (02:04→17:56)
[2021-01-29 04:00] VITALS: BP 154/88
[2021-01-29] MEDS: HYDROCODONE/ACETAMINOPHEN 5/325MG TABLET PO PRN ×3 (05:17→23:44)
[2021-01-29] MEDS: FAMOTIDINE 20MG TABLET PO SCH (05:17)
[2021-01-29] MEDS: HYDRALAZINE HCL 100MG TABLET PO SCH ×3 (05:18→21:39)
[2021-01-29] MEDS: BLOOD SUGAR DIAGNOSTIC STRIP TEST SCH ×4 (05:43→21:30)
[2021-01-29] MEDS: PREDNISONE 10MG TABLET PO SCH ×2 (05:43→17:56)
[2021-01-29] MEDS: INSULIN LISPRO 100 UNITS/ML SUBCUT SCH ×4 (07:10→21:00)
[2021-01-29 08:00] VITALS: BP 131/75
[2021-01-29 08:08] LABS: PROTHROMBIN TIME 29.2 sec (9.6-11.0)
[2021-01-29] MEDS: LEVETIRACETAM 500MG TABLET PO SCH ×2 (09:15→21:39)
[2021-01-29] MEDS: METOPROLOL TARTRATE 25MG TABLET PO SCH ×2 (09:15→21:39)
[2021-01-29] MEDS: LORAZEPAM 0.5MG TABLET PO SCH ×2 (09:15→21:39)
[2021-01-29] MEDS: PENTOXIFYLLINE 400MG TABLET PO SCH ×2 (09:15→21:39)
[2021-01-29] MEDS: HYDROXYCHLOROQUINE SULFATE 200MG TABLET PO SCH (09:15)
[2021-01-29] MEDS: DILTIAZEM HCL 120MG CAPSULE CD 24HR PO SCH (09:15)
[2021-01-29] MEDS: PREDNISOLONE ACETATE 1% OPHTH DROPS 5ML LEFTEYE SCH ×4 (09:17→21:38)
[2021-01-29] MEDS: CIPROFLOXACIN 0.3% OPHTH SOLN 2.5ML LEFTEYE SCH ×4 (09:17→21:39)
[2021-01-29 12:00] VITALS: BP 158/83
[2021-01-29 16:00] VITALS: BP 146/71
[2021-01-29] MEDS: WARFARIN SODIUM 2.5MG TABLET PO SCH (17:55)
[2021-01-29 20:00] VITALS: BP 178/89
[2021-01-29] MEDS: ZOLPIDEM TARTRATE 5MG TABLET PO PRN (21:39)
[2021-01-29] MEDS: CLONIDINE 0.1MG TABLET PO SCH (21:39)
[2021-01-30] VITALS: BP 144/76
[2021-01-30 04:00] VITALS: BP 155/78
[2021-01-30] MEDS: HYDRALAZINE HCL 100MG TABLET PO SCH ×3 (05:33→23:16)
[2021-01-30] MEDS: MORPHINE SULFATE 2 MG/ML CPJ (NOT FOR IM USE) IV PRN ×4 (05:33→22:00)
[2021-01-30] MEDS: PREDNISONE 10MG TABLET PO SCH ×2 (05:33→16:39)
[2021-01-30] MEDS: FAMOTIDINE 20MG TABLET PO SCH (05:39)
[2021-01-30] MEDS: BLOOD SUGAR DIAGNOSTIC STRIP TEST SCH ×4 (06:32→21:00)
[2021-01-30] MEDS: INSULIN LISPRO 100 UNITS/ML SUBCUT SCH ×4 (06:32→23:17)
[2021-01-30 08:00] VITALS: BP 168/92
[2021-01-30] MEDS: DILTIAZEM HCL 120MG CAPSULE CD 24HR PO SCH (09:11)
[2021-01-30] MEDS: HYDROCODONE/ACETAMINOPHEN 5/325MG TABLET PO PRN ×2 (09:12→16:39)
[2021-01-30] MEDS: CIPROFLOXACIN 0.3% OPHTH SOLN 2.5ML LEFTEYE SCH ×4 (09:13→21:16)
[2021-01-30] MEDS: PENTOXIFYLLINE 400MG TABLET PO SCH ×2 (09:13→21:15)
[2021-01-30] MEDS: HYDROXYCHLOROQUINE SULFATE 200MG TABLET PO SCH (09:13)
[2021-01-30] MEDS: LORAZEPAM 0.5MG TABLET PO SCH ×2 (09:13→21:14)
[2021-01-30] MEDS: PREDNISOLONE ACETATE 1% OPHTH DROPS 5ML LEFTEYE SCH ×4 (09:13→21:16)
[2021-01-30] MEDS: LEVETIRACETAM 500MG TABLET PO SCH ×2 (09:13→21:15)
[2021-01-30] MEDS: METOPROLOL TARTRATE 25MG TABLET PO SCH ×2 (09:13→21:00)
[2021-01-30 10:13] LABS: INR 2.9; PROTHROMBIN TIME 28.2 sec (9.6-11.0)
[2021-01-30 12:00] VITALS: BP 161/84
[2021-01-30 16:00] VITALS: BP 155/85
[2021-01-30] MEDS: WARFARIN SODIUM 2.5MG TABLET PO SCH (18:25)
[2021-01-30 20:00] VITALS: BP 167/79
[2021-01-30] MEDS: CLONIDINE 0.1MG TABLET PO SCH (21:00)
[2021-01-30] MEDS: ZOLPIDEM TARTRATE 5MG TABLET PO PRN (23:16)
[2021-01-31] VITALS: BP 133/70
[2021-01-31 04:00] VITALS: BP 148/92
[2021-01-31] MEDS: MORPHINE SULFATE 2 MG/ML CPJ (NOT FOR IM USE) IV PRN ×4 (04:25→20:56)
[2021-01-31] MEDS: HYDRALAZINE HCL 100MG TABLET PO SCH ×3 (06:00→23:21)
[2021-01-31] MEDS: FAMOTIDINE 20MG TABLET PO SCH (06:54)
[2021-01-31] MEDS: PREDNISONE 10MG TABLET PO SCH ×2 (06:55→16:37)
[2021-01-31] MEDS: BLOOD SUGAR DIAGNOSTIC STRIP TEST SCH ×4 (06:55→21:00)
[2021-01-31] MEDS: INSULIN LISPRO 100 UNITS/ML SUBCUT SCH ×4 (06:56→21:00)
[2021-01-31 07:47] LABS: INR 2.8; PROTHROMBIN TIME 27.5 sec (9.6-11.0)
[2021-01-31 08:00] VITALS: BP 165/93
[2021-01-31] MEDS: LORAZEPAM 0.5MG TABLET PO SCH ×2 (09:07→21:05)
[2021-01-31] MEDS: DILTIAZEM HCL 120MG CAPSULE CD 24HR PO SCH (09:07)
[2021-01-31] MEDS: HYDROXYCHLOROQUINE SULFATE 200MG TABLET PO SCH (09:08)
[2021-01-31] MEDS: PENTOXIFYLLINE 400MG TABLET PO SCH ×2 (09:08→21:05)
[2021-01-31] MEDS: LEVETIRACETAM 500MG TABLET PO SCH ×2 (09:08→21:05)
[2021-01-31] MEDS: METOPROLOL TARTRATE 25MG TABLET PO SCH ×2 (09:08→21:00)
[2021-01-31] MEDS: PREDNISOLONE ACETATE 1% OPHTH DROPS 5ML LEFTEYE SCH ×4 (09:10→21:04)
[2021-01-31] MEDS: CIPROFLOXACIN 0.3% OPHTH SOLN 2.5ML LEFTEYE SCH ×4 (09:10→21:04)
[2021-01-31] MEDS ORDERED: NALOXONE HCL 0.4MG/ML VIAL IV PRN (11:00)
[2021-01-31 12:00] VITALS: BP 169/81
[2021-01-31 16:00] VITALS: BP 142/79
[2021-01-31] MEDS: WARFARIN SODIUM 2.5MG TABLET PO SCH (16:42)
[2021-01-31 20:00] VITALS: BP 152/95
[2021-01-31] MEDS: CLONIDINE 0.1MG TABLET PO SCH (21:06)
[2021-02-01] VITALS: BP 137/85
[2021-02-01] MEDS: ZOLPIDEM TARTRATE 5MG TABLET PO PRN ×2 (01:12→23:25)
[2021-02-01 04:00] VITALS: BP 158/92
[2021-02-01] MEDS: MORPHINE SULFATE 2 MG/ML CPJ (NOT FOR IM USE) IV PRN ×5 (04:48→23:29)
[2021-02-01] MEDS: BLOOD SUGAR DIAGNOSTIC STRIP TEST SCH ×4 (05:54→21:07)
[2021-02-01] MEDS: PREDNISONE 10MG TABLET PO SCH ×2 (05:54→17:59)
[2021-02-01] MEDS: FAMOTIDINE 20MG TABLET PO SCH (05:54)
[2021-02-01] MEDS: HYDRALAZINE HCL 100MG TABLET PO SCH ×3 (05:54→21:07)
[2021-02-01] MEDS: INSULIN LISPRO 100 UNITS/ML SUBCUT SCH ×4 (06:05→21:00)
[2021-02-01 06:48] LABS: INR 2.4; PROTHROMBIN TIME 23.7 sec (9.6-11.0)
[2021-02-01 08:00] VITALS: BP 172/79
[2021-02-01] MEDS: CIPROFLOXACIN 0.3% OPHTH SOLN 2.5ML LEFTEYE SCH ×4 (08:55→21:02)
[2021-02-01] MEDS: PREDNISOLONE ACETATE 1% OPHTH DROPS 5ML LEFTEYE SCH ×4 (08:55→21:02)
[2021-02-01] MEDS: METOPROLOL TARTRATE 25MG TABLET PO SCH ×2 (08:56→21:06)
[2021-02-01] MEDS: LORAZEPAM 0.5MG TABLET PO SCH ×2 (08:56→21:01)
[2021-02-01] MEDS: LEVETIRACETAM 500MG TABLET PO SCH ×2 (08:56→21:01)
[2021-02-01] MEDS: DILTIAZEM HCL 120MG CAPSULE CD 24HR PO SCH (08:56)
[2021-02-01] MEDS: PENTOXIFYLLINE 400MG TABLET PO SCH ×2 (08:56→21:01)
[2021-02-01] MEDS: HYDROXYCHLOROQUINE SULFATE 200MG TABLET PO SCH (08:56)
[2021-02-01 12:00] VITALS: BP 147/93
[2021-02-01] MEDS: HYDROCODONE/ACETAMINOPHEN 5/325MG TABLET PO PRN ×2 (15:08→21:00)
[2021-02-01 16:00] VITALS: BP 161/73
[2021-02-01] MEDS: WARFARIN SODIUM 2.5MG TABLET PO SCH (17:59)
[2021-02-01 20:00] VITALS: BP 147/81
[2021-02-01] MEDS: CLONIDINE 0.1MG TABLET PO SCH (21:01)
[2021-02-02] VITALS: BP_SYST 144; BP_SYST 155; BP_DIAS 78; BP_DIAS 82
[2021-02-02] MEDS: HYDROCODONE/ACETAMINOPHEN 5/325MG TABLET PO PRN ×4 (02:53→20:59)
[2021-02-02 04:00] VITALS: BP 158/81
[2021-02-02] MEDS: FAMOTIDINE 20MG TABLET PO SCH (06:38)
[2021-02-02] MEDS: PREDNISONE 10MG TABLET PO SCH ×2 (06:38→17:30)
[2021-02-02] MEDS: HYDRALAZINE HCL 100MG TABLET PO SCH ×3 (06:38→22:15)
[2021-02-02] MEDS: BLOOD SUGAR DIAGNOSTIC STRIP TEST SCH ×4 (06:39→21:00)
[2021-02-02] MEDS: INSULIN LISPRO 100 UNITS/ML SUBCUT SCH ×4 (06:45→21:00)
[2021-02-02] MEDS: MORPHINE SULFATE 2 MG/ML CPJ (NOT FOR IM USE) IV PRN ×2 (06:53→13:06)
[2021-02-02 06:59] LABS: INR 2.4; PROTHROMBIN TIME 24.5 sec (9.6-11.0)
[2021-02-02 07:03] LABS: HEMATOCRIT 25.5 % (36.0-48.0); HEMOGLOBIN 8.4 g/dL (12.0-16.0); MEAN CORPUSCULAR HEMOGLOBIN 28.7 pg (28.0-32.0); MEAN CORPUSCULAR VOLUME 86.9 fL (81.0-99.0); PLATELET 247 x1000/uL (130-400); RED BLOOD CELL COUNT 2.93 mill/uL (4.2-5.4); RED CELL DISTRIBUTION WIDTH 18.5 % (11.6-14.6)
[2021-02-02 08:00] VITALS: BP 150/78
[2021-02-02] MEDS: HYDROXYCHLOROQUINE SULFATE 200MG TABLET PO SCH (09:22)
[2021-02-02] MEDS: LORAZEPAM 0.5MG TABLET PO SCH ×2 (09:22→22:15)
[2021-02-02] MEDS: METOPROLOL TARTRATE 25MG TABLET PO SCH ×2 (09:22→22:15)
[2021-02-02] MEDS: LEVETIRACETAM 500MG TABLET PO SCH ×2 (09:23→22:15)
[2021-02-02] MEDS: PENTOXIFYLLINE 400MG TABLET PO SCH ×2 (09:23→22:15)
[2021-02-02] MEDS: DILTIAZEM HCL 120MG CAPSULE CD 24HR PO SCH (09:24)
[2021-02-02 12:00] VITALS: BP 154/74
[2021-02-02 16:00] VITALS: BP 157/86
[2021-02-02] MEDS: WARFARIN SODIUM 2.5MG TABLET PO SCH (17:29)
[2021-02-02] MEDS: CLONIDINE 0.1MG TABLET PO SCH ×2 (21:00→23:51)
[2021-02-02] MEDS: PREDNISOLONE ACETATE 1% OPHTH DROPS 5ML LEFTEYE SCH (23:30)
[2021-02-02] MEDS: CIPROFLOXACIN 0.3% OPHTH SOLN 2.5ML LEFTEYE SCH (23:30)
[2021-02-02] MEDS: ZOLPIDEM TARTRATE 5MG TABLET PO PRN (23:44)
[2021-02-03] VITALS: BP 155/82
[2021-02-03 04:00] VITALS: BP 105/49
[2021-02-03] MEDS: HYDROCODONE/ACETAMINOPHEN 5/325MG TABLET PO PRN ×4 (04:37→18:59)
[2021-02-03] MEDS: HYDRALAZINE HCL 100MG TABLET PO SCH ×3 (06:00→21:50)
[2021-02-03] MEDS: FAMOTIDINE 20MG TABLET PO SCH (06:40)
[2021-02-03] MEDS: BLOOD SUGAR DIAGNOSTIC STRIP TEST SCH ×4 (06:40→21:50)
[2021-02-03] MEDS: INSULIN LISPRO 100 UNITS/ML SUBCUT SCH ×5 (07:10→21:48)
[2021-02-03] MEDS: PREDNISONE 10MG TABLET PO SCH ×2 (08:06→17:09)
[2021-02-03] MEDS: HYDROXYCHLOROQUINE SULFATE 200MG TABLET PO SCH (08:40)
[2021-02-03] MEDS: METOPROLOL TARTRATE 25MG TABLET PO SCH ×2 (08:40→21:49)
[2021-02-03] MEDS: LEVETIRACETAM 500MG TABLET PO SCH ×2 (08:40→21:50)
[2021-02-03] MEDS: DILTIAZEM HCL 120MG CAPSULE CD 24HR PO SCH (08:40)
[2021-02-03] MEDS: LORAZEPAM 0.5MG TABLET PO SCH ×2 (08:40→21:50)
[2021-02-03] MEDS: PREDNISOLONE ACETATE 1% OPHTH DROPS 5ML LEFTEYE SCH ×4 (08:41→21:49)
[2021-02-03] MEDS: CIPROFLOXACIN 0.3% OPHTH SOLN 2.5ML LEFTEYE SCH ×4 (08:42→21:49)
[2021-02-03] MEDS: PENTOXIFYLLINE 400MG TABLET PO SCH ×2 (08:55→21:52)
[2021-02-03 09:16] LABS: INR 2.4; PROTHROMBIN TIME 24.1 sec (9.6-11.0)
[2021-02-03 16:00] VITALS: BP 142/56
[2021-02-03] MEDS: WARFARIN SODIUM 2.5MG TABLET PO SCH (17:09)
[2021-02-03 20:00] VITALS: BP 160/87
[2021-02-03] MEDS: CLONIDINE 0.1MG TABLET PO SCH (21:50)
[2021-02-03] MEDS: ZOLPIDEM TARTRATE 5MG TABLET PO PRN (23:10)
[2021-02-04] VITALS: BP 135/68
[2021-02-04] MEDS: HYDROCODONE/ACETAMINOPHEN 5/325MG TABLET PO PRN ×5 (03:06→21:47)
[2021-02-04 04:00] VITALS: BP 141/83
[2021-02-04] MEDS: INSULIN LISPRO 100 UNITS/ML SUBCUT SCH ×4 (06:12→21:00)
[2021-02-04] MEDS: BLOOD SUGAR DIAGNOSTIC STRIP TEST SCH ×4 (06:12→21:00)
[2021-02-04] MEDS: PREDNISONE 10MG TABLET PO SCH ×2 (06:13→17:14)
[2021-02-04] MEDS: HYDRALAZINE HCL 100MG TABLET PO SCH ×3 (06:13→23:33)
[2021-02-04] MEDS: FAMOTIDINE 20MG TABLET PO SCH (06:13)
[2021-02-04] MEDS: PREDNISOLONE ACETATE 1% OPHTH DROPS 5ML LEFTEYE SCH ×4 (08:32→23:34)
[2021-02-04] MEDS: CIPROFLOXACIN 0.3% OPHTH SOLN 2.5ML LEFTEYE SCH ×4 (08:32→23:34)
[2021-02-04] MEDS: LORAZEPAM 0.5MG TABLET PO SCH ×2 (08:33→21:00)
[2021-02-04] MEDS: PENTOXIFYLLINE 400MG TABLET PO SCH ×2 (08:33→21:47)
[2021-02-04] MEDS: LEVETIRACETAM 500MG TABLET PO SCH ×2 (08:33→21:53)
[2021-02-04] MEDS: HYDROXYCHLOROQUINE SULFATE 200MG TABLET PO SCH (08:33)
[2021-02-04] MEDS: METOPROLOL TARTRATE 25MG TABLET PO SCH ×2 (09:14→21:48)
[2021-02-04] MEDS: DILTIAZEM HCL 120MG CAPSULE CD 24HR PO SCH (09:15)
[2021-02-04] MEDS: WARFARIN SODIUM 2.5MG TABLET PO SCH (17:15)
[2021-02-04 20:00] VITALS: BP 180/72
[2021-02-04] MEDS: CLONIDINE 0.1MG TABLET PO SCH (21:47)
[2021-02-04] MEDS: ZOLPIDEM TARTRATE 5MG TABLET PO PRN (23:32)
[2021-02-05] VITALS: BP 149/73
[2021-02-05] MEDS: HYDROCODONE/ACETAMINOPHEN 5/325MG TABLET PO PRN ×5 (03:44→22:20)
[2021-02-05 04:00] VITALS: BP 142/80
[2021-02-05] MEDS: HYDRALAZINE HCL 100MG TABLET PO SCH ×3 (06:42→22:20)
[2021-02-05] MEDS: FAMOTIDINE 20MG TABLET PO SCH (06:42)
[2021-02-05] MEDS: PREDNISONE 10MG TABLET PO SCH ×2 (06:42→18:02)
[2021-02-05] MEDS: BLOOD SUGAR DIAGNOSTIC STRIP TEST SCH ×4 (06:42→20:37)
[2021-02-05] MEDS: INSULIN LISPRO 100 UNITS/ML SUBCUT SCH ×4 (06:43→20:37)
[2021-02-05] MEDS: LEVETIRACETAM 500MG TABLET PO SCH ×2 (09:09→20:24)
[2021-02-05] MEDS: LORAZEPAM 0.5MG TABLET PO SCH ×2 (09:09→20:24)
[2021-02-05] MEDS: METOPROLOL TARTRATE 25MG TABLET PO SCH ×2 (09:09→20:25)
[2021-02-05] MEDS: HYDROXYCHLOROQUINE SULFATE 200MG TABLET PO SCH (09:09)
[2021-02-05] MEDS: DILTIAZEM HCL 120MG CAPSULE CD 24HR PO SCH (09:09)
[2021-02-05] MEDS: CIPROFLOXACIN 0.3% OPHTH SOLN 2.5ML LEFTEYE SCH ×4 (09:10→20:26)
[2021-02-05] MEDS: PREDNISOLONE ACETATE 1% OPHTH DROPS 5ML LEFTEYE SCH ×4 (09:10→20:27)
[2021-02-05] MEDS: PENTOXIFYLLINE 400MG TABLET PO SCH ×2 (09:14→20:25)
[2021-02-05 12:00] VITALS: BP 120/57
[2021-02-05] MEDS ORDERED: DILT120C88 PO (13:36)
[2021-02-05 16:00] VITALS: BP 123/67
[2021-02-05] MEDS: WARFARIN SODIUM 2.5MG TABLET PO SCH (18:02)
[2021-02-05 20:00] VITALS: BP 151/68
[2021-02-05] MEDS: CLONIDINE 0.1MG TABLET PO SCH (20:25)
[2021-02-06] VITALS: BP 138/78
[2021-02-06] MEDS: ZOLPIDEM TARTRATE 5MG TABLET PO PRN (00:48)
[2021-02-06 04:00] VITALS: BP 155/75
[2021-02-06] MEDS: HYDROCODONE/ACETAMINOPHEN 5/325MG TABLET PO PRN ×4 (06:14→18:44)
[2021-02-06] MEDS: PREDNISONE 10MG TABLET PO SCH ×2 (06:14→17:45)
[2021-02-06] MEDS: FAMOTIDINE 20MG TABLET PO SCH (06:14)
[2021-02-06] MEDS: BLOOD SUGAR DIAGNOSTIC STRIP TEST SCH ×4 (06:14→21:00)
[2021-02-06] MEDS: HYDRALAZINE HCL 100MG TABLET PO SCH ×3 (06:14→22:45)
[2021-02-06] MEDS: INSULIN LISPRO 100 UNITS/ML SUBCUT SCH ×4 (06:15→21:00)
[2021-02-06 07:08] LABS: INR 3.2; PROTHROMBIN TIME 30.9 sec (9.6-11.0)
[2021-02-06 08:00] VITALS: BP 129/63
[2021-02-06] MEDS: LEVETIRACETAM 500MG TABLET PO SCH ×2 (09:09→22:45)
[2021-02-06] MEDS: PENTOXIFYLLINE 400MG TABLET PO SCH ×2 (09:09→22:45)
[2021-02-06] MEDS: DILTIAZEM HCL 120MG CAPSULE CD 24HR PO SCH (09:09)
[2021-02-06] MEDS: HYDROXYCHLOROQUINE SULFATE 200MG TABLET PO SCH (09:09)
[2021-02-06] MEDS: METOPROLOL TARTRATE 25MG TABLET PO SCH ×2 (09:10→22:46)
[2021-02-06] MEDS: PREDNISOLONE ACETATE 1% OPHTH DROPS 5ML LEFTEYE SCH ×4 (09:11→21:00)
[2021-02-06] MEDS: CIPROFLOXACIN 0.3% OPHTH SOLN 2.5ML LEFTEYE SCH ×4 (09:11→21:00)
[2021-02-06 12:00] VITALS: BP_SYST 128; BP_SYST 135; BP_DIAS 52; BP_DIAS 61
[2021-02-06 16:00] VITALS: BP 135/61
[2021-02-06 21:06] VITALS: BP 147/67
[2021-02-06] MEDS: CLONIDINE 0.1MG TABLET PO SCH (22:46)
[2021-02-07] VITALS (7 sets, daily range): BP systolic 112–156; BP diastolic 54–90
[2021-02-07] MEDS: ZOLPIDEM TARTRATE 5MG TABLET PO PRN ×2 (00:44→23:50)
[2021-02-07] MEDS: BLOOD SUGAR DIAGNOSTIC STRIP TEST SCH ×4 (06:20→21:48)
[2021-02-07] MEDS: HYDRALAZINE HCL 100MG TABLET PO SCH ×3 (06:20→21:49)
[2021-02-07] MEDS: PREDNISONE 10MG TABLET PO SCH ×2 (06:21→17:00)
[2021-02-07] MEDS: FAMOTIDINE 20MG TABLET PO SCH (06:21)
[2021-02-07] MEDS: HYDROCODONE/ACETAMINOPHEN 5/325MG TABLET PO PRN ×4 (06:22→21:50)
[2021-02-07 07:45] LABS: INR 2.6; PROTHROMBIN TIME 26.1 sec (9.6-11.0)
[2021-02-07] MEDS: INSULIN LISPRO 100 UNITS/ML SUBCUT SCH ×4 (07:50→21:00)
[2021-02-07] MEDS: LEVETIRACETAM 500MG TABLET PO SCH ×2 (09:34→21:49)
[2021-02-07] MEDS: CIPROFLOXACIN 0.3% OPHTH SOLN 2.5ML LEFTEYE SCH ×4 (09:35→21:51)
[2021-02-07] MEDS: PENTOXIFYLLINE 400MG TABLET PO SCH ×2 (09:35→21:49)
[2021-02-07] MEDS: PREDNISOLONE ACETATE 1% OPHTH DROPS 5ML LEFTEYE SCH ×4 (09:35→21:51)
[2021-02-07] MEDS: HYDROXYCHLOROQUINE SULFATE 200MG TABLET PO SCH (09:35)
[2021-02-07] MEDS: METOPROLOL TARTRATE 25MG TABLET PO SCH ×2 (09:38→21:49)
[2021-02-07] MEDS: DILTIAZEM HCL 120MG CAPSULE CD 24HR PO SCH (09:39)
[2021-02-07] MEDS ORDERED: CLONIDINE 0.1MG TABLET PO ONE (17:30)
[2021-02-07] MEDS ORDERED: CLONIDINE 0.1MG TABLET PO NR (17:45)
[2021-02-07] MEDS: CLONIDINE 0.1MG TABLET PO SCH (21:00)
[2021-02-08] VITALS: BP 113/65
[2021-02-08 04:00] VITALS: BP 149/72
[2021-02-08] MEDS: HYDROCODONE/ACETAMINOPHEN 5/325MG TABLET PO PRN ×3 (04:57→14:32)
[2021-02-08] MEDS: FAMOTIDINE 20MG TABLET PO SCH (06:29)
[2021-02-08] MEDS: HYDRALAZINE HCL 100MG TABLET PO SCH ×2 (06:30→14:30)
[2021-02-08 07:25] LABS: INR 2.4; PROTHROMBIN TIME 23.9 sec (9.6-11.0)
[2021-02-08] MEDS: INSULIN LISPRO 100 UNITS/ML SUBCUT SCH ×3 (07:50→16:55)
[2021-02-08 08:00] VITALS: BP 150/88
[2021-02-08] MEDS: BLOOD SUGAR DIAGNOSTIC STRIP TEST SCH ×3 (08:00→16:55)
[2021-02-08] MEDS: PREDNISONE 10MG TABLET PO SCH ×2 (09:50→17:31)
[2021-02-08] MEDS: CIPROFLOXACIN 0.3% OPHTH SOLN 2.5ML LEFTEYE SCH ×3 (09:51→17:22)
[2021-02-08] MEDS: PREDNISOLONE ACETATE 1% OPHTH DROPS 5ML LEFTEYE SCH ×3 (09:51→17:22)
[2021-02-08] MEDS: DILTIAZEM HCL 120MG CAPSULE CD 24HR PO SCH (10:21)
[2021-02-08] MEDS: PENTOXIFYLLINE 400MG TABLET PO SCH (10:22)
[2021-02-08] MEDS: LEVETIRACETAM 500MG TABLET PO SCH (10:22)
[2021-02-08] MEDS: METOPROLOL TARTRATE 25MG TABLET PO SCH (10:22)
[2021-02-08] MEDS: HYDROXYCHLOROQUINE SULFATE 200MG TABLET PO SCH (10:23)
[2021-02-08 12:00] VITALS: BP 144/87
[2021-02-08 14:32] VITALS: BP 144/87
[2021-02-08] MEDS ORDERED: WARFARIN SODIUM 2.5MG TABLET PO SCH (18:00)
== END 2021-02-08 18:00 | DRG 121 ==
LOC: ER 15:37 → ENRESERV 22:30 → 7EST 01-26 00:28 → 6EST 02-06 20:38
PROVIDERS: ADMIT Internal Medicine; ATTEND Internal Medicine
DX: H05.012 Cellulitis of left orbit (principal); L03.211 Cellulitis of face; D68.61 Antiphospholipid syndrome; L03.213 Periorbital cellulitis; H00.014 Hordeolum externum left upper eyelid; N18.9 Chronic kidney disease, unspecified; M32.9 Systemic lupus erythematosus, unspecified; I12.9 Hypertensive chronic kidney disease with stage 1 through stage 4 chronic kidney disease, or unspecified chronic kidney disease; G40.909 Epilepsy, unspecified, not intractable, without status epilepticus; Z20.822 Contact with and (suspected) exposure to COVID-19; G62.9 Polyneuropathy, unspecified; M06.9 Rheumatoid arthritis, unspecified; Z86.718 Personal history of other venous thrombosis and embolism; Z86.73 Personal history of transient ischemic attack (TIA), and cerebral infarction without residual deficits; Z86.16 Personal history of COVID-19; Z88.8 Allergy status to other drugs, medicaments and biological substances; Z91.040 Latex allergy status; Z88.0 Allergy status to penicillin; Z91.013 Allergy to seafood; Z79.899 Other long term (current) drug therapy; Z79.01 Long term (current) use of anticoagulants; Z91.14 Patient's other noncompliance with medication regimen
CPT/HCPCS: 36415; 70481; 71045; 80048; 80053; 82962; 85025; 85027; 87426; 93005; 97110; 97162; 97166; 97530; 99285; C1893; J1100; J1815; J1956; J2270; J2405; J3370; J7512; Q9967

== ENCOUNTER 2021-06-03 13:15 | Emergency (ER) | payer MEDICARE, MEDICAID ==
[~2021-06-03] VITALS: Ht 167.6 cm; Wt 160.0 kg
[~2021-06-03 13:15] MED LIST changes: +DILT120C88 PO; -DILT240C96 MT
[2021-06-03] MEDS ORDERED: SODIUM CHLORIDE 0.9% 1,000 ML IV ONE (15:00)
[2021-06-03 17:13] LABS: BASOPHILS % 1.2 % (0.0-2.0); EOSINOPHILS % 2.9 % (0.0-5.0); HEMATOCRIT. 32.5 % (36.0-48.0); HEMOGLOBIN. 10.3 g/dL (12.0-16.0); LYMPHOCYTES % 20.5 % (20.0-50.0); MEAN CORPUSCULAR HEMOGLOBIN 26.2 pg (28.0-32.0); MEAN CORPUSCULAR VOLUME 82.7 fL (81.0-99.0); MEAN PLATELET VOLUME 8.3 fl (7.4-10.4); MONOCYTES % 8.1 % (2.0-8.0); NEUTROPHILS % 67.3 % (40.0-76.0); PLATELET 122 x1000/uL (130-400); RED BLOOD CELL COUNT 3.93 mill/uL (4.2-5.4); RED CELL DISTRIBUTION WIDTH 15.3 % (11.6-14.6)
[2021-06-03 17:20] LABS: CHLORIDE 113 mEq/L (98-107); INR 1.3; PROTHROMBIN TIME 13.7 sec (9.6-11.0)
[2021-06-03] MEDS ORDERED: MORPHINE SULFATE 2 MG/ML CPJ (NOT FOR IM USE) IV ONE (17:30)
[2021-06-03] MEDS ORDERED: ACETAMINOPHEN 160MG/5ML UDC PO ONE (22:15)
[2021-06-04] MEDS ORDERED: ACETAMINOPHEN 325MG TABLET PO ONE (06:45)
[2021-06-04] MEDS ORDERED: METOPROLOL SUCCINATE 50MG ER TABLET PO SCH (09:00)
[2021-06-04 11:00] VITALS: BP 161/90
== END 2021-06-04 04:33 | disposition home or self-care (01) ==
LOC: ER 13:15
DX: R42 Dizziness and giddiness (principal); I10 Essential (primary) hypertension; Z86.59 Personal history of other mental and behavioral disorders; Z86.73 Personal history of transient ischemic attack (TIA), and cerebral infarction without residual deficits; Z88.0 Allergy status to penicillin; Z91.013 Allergy to seafood; Z91.040 Latex allergy status; Z79.899 Other long term (current) drug therapy
CPT/HCPCS: 36415; 70450; 71045; 80053; 83880; 84484; 85025; 85610; 93005; 96374; 99285; J2270; J7030

== ENCOUNTER 2021-07-02 19:39 | Emergency (ER) | payer MEDICARE, MEDICAID ==
[~2021-07-02] VITALS: Ht 160 cm; Wt 82.0 kg
[2021-07-02 21:02] LABS: BASOPHILS % 0.9 % (0.0-2.0); HEMATOCRIT. 33.4 % (36.0-48.0); HEMOGLOBIN. 11.3 g/dL (12.0-16.0); MEAN CORPUSCULAR HEMOGLOBIN 27.1 pg (28.0-32.0); MEAN CORPUSCULAR VOLUME 80.1 fL (81.0-99.0); MEAN PLATELET VOLUME 7.7 fl (7.4-10.4); MONOCYTES % 7.2 % (2.0-8.0); NEUTROPHILS % 69.9 % (40.0-76.0); PLATELET 211 x1000/uL (130-400); RED BLOOD CELL COUNT 4.17 mill/uL (4.2-5.4); RED CELL DISTRIBUTION WIDTH 15.4 % (11.6-14.6)
[2021-07-02 21:11] LABS: D-DIMER 2.25 mg/L FEU (<0.50); INR 1.9; PROTHROMBIN TIME 19.4 sec (9.6-11.0)
[2021-07-02 21:11] LABS: CLARITY URINE CLEAR (CLEAR); COLOR URINE YELLOW (YELLOW); KETONES URINE NEGATIVE (NEGATIVE); LEUKOCYTE ESTERASE URINE 1+ (NEGATIVE); NITRITE URINE NEGATIVE (NEGATIVE); OCCULT BLOOD URINE NEGATIVE (NEGATIVE); PH URINE 6.5 (4.5-8.0); PROTEIN URINE 2+ (NEGATIVE); SPECIFIC GRAVITY URINE 1.015 (1.005-1.030); UROBILINOGEN URINE 0.2 E.U./dL (0.2-1.0)
[2021-07-03 04:19] VITALS: BP 145/75
[2021-07-20] MEDS ORDERED: METO-539 MT (10:44)
[2021-07-21] MEDS ORDERED: PRED5DRO22 LEFTEYE (10:43)
[2021-07-25] MEDS ORDERED: CLON0.1T PO (20:48)
[2021-07-25] MEDS ORDERED: KEPP250 PO (20:51)
[2021-07-25] MEDS ORDERED: CLOP-31 PO (20:52)
[2021-07-25] MEDS ORDERED: AMLO5TAB88 PO (20:54)
[2021-07-25] MEDS ORDERED: PANT40TA51 PO (20:55)
== END 2021-07-03 04:19 | disposition home or self-care (01) ==
LOC: ER 19:39
DX: R51.9 Headache, unspecified (principal); R11.0 Nausea; R06.02 Shortness of breath; E78.00 Pure hypercholesterolemia, unspecified; I10 Essential (primary) hypertension; Z88.0 Allergy status to penicillin
CPT/HCPCS: 36415; 71045; 80048; 81003; 84484; 85025; 85379; 93005; 99285

== ENCOUNTER 2021-08-16 22:15 | Emergency (ER) | payer MEDICARE, MEDICAID ==
[~2021-08-16] VITALS: Ht 165.1 cm; Wt 82.0 kg
[~2021-08-16 22:15] MED LIST changes: +AMLO5TAB88 PO; +CLOP-31 PO; -DILT120C88 PO; -FOLI-43 MT; +KEPP250 PO; -KEPP500 PO; -PANT40TA51 MT; +PANT40TA51 PO; -PENT400T16 PO; -PRED10TA PO
[2021-08-16 22:18] VITALS: BP 160/110
[2021-08-16] MEDS ORDERED: GENTAMICIN 0.3% OPHTH DROPS 5ML BOTHEYE ONE (22:30)
[2021-08-16 23:32] LABS: BASOPHILS % 0.6 % (0.0-2.0); HEMATOCRIT. 30.3 % (36.0-48.0); HEMOGLOBIN. 10.3 g/dL (12.0-16.0); LYMPHOCYTES % 16.7 % (20.0-50.0); MEAN CORPUSCULAR HEMOGLOBIN 26.8 pg (28.0-32.0); MEAN CORPUSCULAR VOLUME 78.8 fL (81.0-99.0); MEAN PLATELET VOLUME 7.9 fl (7.4-10.4); MONOCYTES % 8.8 % (2.0-8.0); NEUTROPHILS % 71.9 % (40.0-76.0); PLATELET 184 x1000/uL (130-400); RED BLOOD CELL COUNT 3.84 mill/uL (4.2-5.4); RED CELL DISTRIBUTION WIDTH 16.5 % (11.6-14.6)
[2021-08-16 23:49] LABS: CHLORIDE 111 mEq/L (98-107)
[2021-08-16 23:53] LABS: ETHANOL BLOOD < 10 mg/dL
[2021-08-17 00:03] LABS: CLARITY URINE CLEAR (CLEAR); COLOR URINE DARK YELLOW (YELLOW); KETONES URINE 1+ (NEGATIVE); LEUKOCYTE ESTERASE URINE NEGATIVE (NEGATIVE); NITRITE URINE NEGATIVE (NEGATIVE); OCCULT BLOOD URINE NEGATIVE (NEGATIVE); PH URINE 5.5 (4.5-8.0); PROTEIN URINE 3+ (NEGATIVE); SPECIFIC GRAVITY URINE 1.025 (1.005-1.030)
[2021-08-17] MEDS ORDERED: POTASSIUM CHLORIDE 20MEQ TABLET SR PO NR (00:15)
[2021-08-17 00:21] LABS: *AMPHETAMINES SCREEN URINE NEGATIVE (NEGATIVE); *BARBITURATES SCREEN URINE NEGATIVE (NEGATIVE); *COCAINE SCREEN URINE NEGATIVE (NEGATIVE); CANNABINOID URINE SCREEN NEGATIVE (NEGATIVE); METHADONE URINE SCREEN NEGATIVE (NEGATIVE); OPIATES URINE SCREEN NEGATIVE (NEGATIVE); PHENCYCLIDINE URINE SCREEN NEGATIVE (NEGATIVE)
[2021-08-17 00:33] LABS: *BENZODIAZEPINES SCREEN URINE PRESUMTIVE POSITIVE (NEGATIVE)
== END 2021-08-17 01:50 | disposition home or self-care (01) ==
LOC: ER 22:15
DX: F41.9 Anxiety disorder, unspecified (principal); I69.354 Hemiplegia and hemiparesis following cerebral infarction affecting left non-dominant side; I10 Essential (primary) hypertension; M32.9 Systemic lupus erythematosus, unspecified; Z88.0 Allergy status to penicillin; Z88.8 Allergy status to other drugs, medicaments and biological substances; Z79.01 Long term (current) use of anticoagulants; Z91.013 Allergy to seafood; Z91.040 Latex allergy status
CPT/HCPCS: 36415; 71045; 80053; 80305; 80320; 81003; 82962; 84443; 85025; 99285; G0480

== ENCOUNTER 2021-08-30 23:07 | Inpatient (IN) | payer MEDICARE, MEDICAID ==
[~2021-08-30] VITALS: Ht 167.6 cm; Wt 94.3 kg
[~2021-08-30 23:07] MED LIST changes: +VANC250C12 MT; -WARF2.5T83 MT
[2021-08-31] MEDS ORDERED: FAMOTIDINE 20MG/2ML VIAL IV STA (00:23)
[2021-08-31] MEDS ORDERED: ONDANSETRON HCL 4MG/2ML INJ IV STA (00:23)
[2021-08-31] MEDS ORDERED: SODIUM CHLORIDE 0.9% 1,000 ML IV ONE (00:30)
[2021-08-31] MEDS ORDERED: MORPHINE SULFATE 4 MG/ML CPJ (NOT FOR IM USE) IV ONE (00:45)
[2021-08-31 01:44] LABS: CHLORIDE 116 mEq/L (98-107)
[2021-08-31 01:53] LABS: BASOPHILS % 0.6 % (0.0-2.0); EOSINOPHILS % 2.1 % (0.0-5.0); HEMATOCRIT. 27.2 % (36.0-48.0); HEMOGLOBIN. 9.1 g/dL (12.0-16.0); LYMPHOCYTES % 17.7 % (20.0-50.0); MEAN CORPUSCULAR HEMOGLOBIN 27.1 pg (28.0-32.0); MEAN CORPUSCULAR VOLUME 80.7 fL (81.0-99.0); MEAN PLATELET VOLUME 8.1 fl (7.4-10.4); MONOCYTES % 7.4 % (2.0-8.0); NEUTROPHILS % 72.2 % (40.0-76.0); PLATELET 127 x1000/uL (130-400); RED BLOOD CELL COUNT 3.37 mill/uL (4.2-5.4); RED CELL DISTRIBUTION WIDTH 16.3 % (11.6-14.6)
[2021-08-31] MEDS: HYDROCODONE/ACETAMINOPHEN 5/325MG TABLET PO PRN ×3 (07:15→21:48)
[2021-08-31] MEDS ORDERED: LIDOCAINE HCL 1% 10 MG/ML 10ML VIAL ONE (08:25)
[2021-08-31] MEDS ORDERED: POTASSIUM CHLORIDE 20MEQ TABLET SR PO SCH (08:30)
[2021-08-31] MEDS ORDERED: ONDANSETRON HCL 4MG/2ML INJ IV PRN (08:30)
[2021-08-31] MEDS ORDERED: ACETAMINOPHEN 325MG TABLET PO PRN (08:30)
[2021-08-31] MEDS: VANCOMYCIN 1000MG/20ML ORAL SOLN PO SCH ×2 (14:20→17:26)
[2021-08-31 14:31] LABS: INR 1.3; PROTHROMBIN TIME 13.4 sec (9.6-11.0)
[2021-08-31] MEDS ORDERED: NALOXONE HCL 0.4MG/ML VIAL IV PRN (15:15)
[2021-08-31] MEDS: DIPHENHYDRAMINE 25MG CAPSULE PO PRN (17:24)
[2021-08-31] MEDS ORDERED: WARFARIN SODIUM 3MG TABLET PO NR (18:00)
[2021-08-31] MEDS: FAMOTIDINE 20MG TABLET PO SCH (21:38)
[2021-09-01 01:38] VITALS: BP 175/95
[2021-09-01 04:00] VITALS: BP 173/95
[2021-09-01] MEDS: VANCOMYCIN 1000MG/20ML ORAL SOLN PO SCH ×4 (04:43→17:12)
[2021-09-01] MEDS: HYDROCODONE/ACETAMINOPHEN 5/325MG TABLET PO PRN ×3 (04:43→20:07)
[2021-09-01] MEDS: DIPHENHYDRAMINE 25MG CAPSULE PO PRN ×2 (05:05→22:43)
[2021-09-01 06:46] LABS: INR 1.2
[2021-09-01 08:00] VITALS: BP 181/91
[2021-09-01] MEDS: HYDROXYCHLOROQUINE SULFATE 200MG TABLET PO SCH (08:52)
[2021-09-01] MEDS: AMLODIPINE 10MG TABLET PO SCH (08:52)
[2021-09-01 12:00] VITALS: BP 139/87
[2021-09-01 16:00] VITALS: BP 140/86
[2021-09-01] MEDS ORDERED: WARFARIN SODIUM 4MG TABLET PO NR (18:00)
[2021-09-01 20:00] VITALS: BP 141/85
[2021-09-01] MEDS: FAMOTIDINE 20MG TABLET PO SCH (20:06)
[2021-09-02] VITALS (8 sets, daily range): BP systolic 135–157; BP diastolic 82–100
[2021-09-02] MEDS: VANCOMYCIN 1000MG/20ML ORAL SOLN PO SCH ×4 (00:28→17:38)
[2021-09-02] MEDS: HYDROCODONE/ACETAMINOPHEN 5/325MG TABLET PO PRN ×5 (00:55→21:27)
[2021-09-02 07:12] LABS: INR 1.4
[2021-09-02] MEDS: AMLODIPINE 10MG TABLET PO SCH (09:03)
[2021-09-02] MEDS: HYDROXYCHLOROQUINE SULFATE 200MG TABLET PO SCH (09:03)
[2021-09-02 16:29] LABS: BASOPHILS % 0.7 % (0.0-2.0); EOSINOPHILS % 5.7 % (0.0-5.0); HEMATOCRIT. 25.1 % (36.0-48.0); HEMOGLOBIN. 8.4 g/dL (12.0-16.0); LYMPHOCYTES % 17.7 % (20.0-50.0); MEAN CORPUSCULAR HEMOGLOBIN 27.5 pg (28.0-32.0); MEAN CORPUSCULAR VOLUME 82.1 fL (81.0-99.0); MEAN PLATELET VOLUME 7.7 fl (7.4-10.4); MONOCYTES % 9.3 % (2.0-8.0); NEUTROPHILS % 66.6 % (40.0-76.0); PLATELET 82 x1000/uL (130-400); RED BLOOD CELL COUNT 3.06 mill/uL (4.2-5.4); RED CELL DISTRIBUTION WIDTH 16.5 % (11.6-14.6)
[2021-09-02] MEDS ORDERED: WARFARIN SODIUM 5MG TABLET PO NR (18:00)
[2021-09-02] MEDS ORDERED: CLONIDINE 0.1MG TABLET PO PRN (20:15)
[2021-09-02] MEDS: FAMOTIDINE 20MG TABLET PO SCH (20:21)
[2021-09-02] MEDS ORDERED: CLONIDINE 0.1MG TABLET PO SCH (22:00)
[2021-09-14] MEDS ORDERED: AMLO5TAB88 PO (12:12)
[2021-09-14] MEDS ORDERED: GABA-532 MT (12:12)
[2021-09-14] MEDS ORDERED: HYDR200T35 PO (12:12)
== END 2021-09-02 22:26 | disposition home or self-care (01) | DRG 371 ==
LOC: ER 23:07 → MICUSO 08-31 02:02 → ENRESERV 08-31 19:15 → EDBEDREQSVC 08-31 19:40 → 7WST 08-31 23:10
PROVIDERS: ADMIT Internal Medicine; ATTEND Internal Medicine
PROC: 05H333Z Insertion of Infusion Device into Right Innominate Vein, Percutaneous Approach (ICD-10-PCS; principal; 2021-08-31)
PROC: B54MZZA Ultrasonography of Right Upper Extremity Veins, Guidance (ICD-10-PCS; 2021-08-31)
DX: A04.72 Enterocolitis due to Clostridium difficile, not specified as recurrent (principal); E43 Unspecified severe protein-calorie malnutrition; U07.1 COVID-19; D68.61 Antiphospholipid syndrome; E87.6 Hypokalemia; E87.8 Other disorders of electrolyte and fluid balance, not elsewhere classified; D64.9 Anemia, unspecified; D69.6 Thrombocytopenia, unspecified; R09.02 Hypoxemia; I10 Essential (primary) hypertension; M32.9 Systemic lupus erythematosus, unspecified; G40.909 Epilepsy, unspecified, not intractable, without status epilepticus; Z82.49 Family history of ischemic heart disease and other diseases of the circulatory system; Z88.8 Allergy status to other drugs, medicaments and biological substances; Z91.040 Latex allergy status; Z86.73 Personal history of transient ischemic attack (TIA), and cerebral infarction without residual deficits; Z88.0 Allergy status to penicillin; Z91.013 Allergy to seafood; Z79.899 Other long term (current) drug therapy; Z68.35 Body mass index [BMI] 35.0-35.9, adult
CPT/HCPCS: 36415; 71045; 76937; 80048; 80053; 82270; 82728; 84145; 85025; 86140; 87015; 87045; 87426; 87427; 87449; 93005; 99285; A6261; C1725; J2270; J2405; J3370; J3490; J7030; Q0163

== ENCOUNTER 2021-11-22 17:13 | Emergency (ER) | payer MEDICARE, MEDICAID ==
[~2021-11-22] VITALS: Ht 167.6 cm; Wt 90.0 kg
[~2021-11-22 17:13] MED LIST changes: +GABA-532 MT; -VANC250C12 MT
[2021-11-22 21:23] LABS: BASOPHILS % 0.7 % (0.0-2.0); EOSINOPHILS % 2.5 % (0.0-5.0); HEMOGLOBIN. 10.7 g/dL (12.0-16.0); LYMPHOCYTES % 15.8 % (20.0-50.0); MEAN CORPUSCULAR HEMOGLOBIN 28.3 pg (28.0-32.0); MEAN CORPUSCULAR VOLUME 87.5 fL (81.0-99.0); PLATELET 152 x1000/uL (130-400); RED BLOOD CELL COUNT 3.77 mill/uL (4.2-5.4); RED CELL DISTRIBUTION WIDTH 14.8 % (11.6-14.6)
[2021-11-22 21:40] LABS: CHLORIDE 114 mEq/L (98-107); HCG SCREEN NEGATIVE
[2021-11-22] MEDS ORDERED: KETOROLAC 60MG/2ML VIAL IM ONE (22:00)
[2021-11-23 01:08] VITALS: BP 114/83
== END 2021-11-23 01:09 | disposition home or self-care (01) ==
LOC: ER 17:13
DX: R51.9 Headache, unspecified (principal); G89.29 Other chronic pain; M54.9 Dorsalgia, unspecified; G40.909 Epilepsy, unspecified, not intractable, without status epilepticus; I10 Essential (primary) hypertension; M19.90 Unspecified osteoarthritis, unspecified site; M32.9 Systemic lupus erythematosus, unspecified; I69.354 Hemiplegia and hemiparesis following cerebral infarction affecting left non-dominant side; H54.7 Unspecified visual loss; Z91.040 Latex allergy status; Z91.013 Allergy to seafood; Z88.0 Allergy status to penicillin
CPT/HCPCS: 36415; 70450; 80053; 83690; 84703; 85025; 96372; 99284; J1885

== ENCOUNTER 2021-12-07 19:59 | Emergency (ER) | payer MEDICARE, MEDICAID ==
[~2021-12-07] VITALS: Ht 175.3 cm; Wt 82.0 kg
[2021-12-07] MEDS ORDERED: KETOROLAC 60MG/2ML VIAL IM ONE (22:30)
[2021-12-08 00:20] LABS: BASOPHILS % 1.1 % (0.0-2.0); CHLORIDE 114 mEq/L (98-107); EOSINOPHILS % 3.8 % (0.0-5.0); HEMATOCRIT. 32.2 % (36.0-48.0); HEMOGLOBIN. 10.3 g/dL (12.0-16.0); LYMPHOCYTES % 35.7 % (20.0-50.0); MEAN CORPUSCULAR HEMOGLOBIN 28.3 pg (28.0-32.0); MEAN CORPUSCULAR VOLUME 88.7 fL (81.0-99.0); MEAN PLATELET VOLUME 7.8 fl (7.4-10.4); NEUTROPHILS % 52.4 % (40.0-76.0); PLATELET 185 x1000/uL (130-400); RED BLOOD CELL COUNT 3.63 mill/uL (4.2-5.4); RED CELL DISTRIBUTION WIDTH 15.1 % (11.6-14.6)
[2021-12-08] MEDS ORDERED: KETOROLAC 60MG/2ML VIAL IM NR (00:22)
[2021-12-08 03:00] VITALS: BP 138/80
== END 2021-12-08 05:08 | disposition home or self-care (01) ==
LOC: ER 19:59
DX: R51.9 Headache, unspecified (principal); R11.2 Nausea with vomiting, unspecified; R19.7 Diarrhea, unspecified; M19.90 Unspecified osteoarthritis, unspecified site; I10 Essential (primary) hypertension; R56.9 Unspecified convulsions; M32.9 Systemic lupus erythematosus, unspecified; I69.354 Hemiplegia and hemiparesis following cerebral infarction affecting left non-dominant side; Z88.0 Allergy status to penicillin; Z88.8 Allergy status to other drugs, medicaments and biological substances; Z91.013 Allergy to seafood; Z91.040 Latex allergy status; Z20.822 Contact with and (suspected) exposure to COVID-19
CPT/HCPCS: 36415; 80053; 83690; 84484; 85025; 87426; 99283; C9803; J1885

== ENCOUNTER 2021-12-12 08:44 | Inpatient (IN) | payer MEDICARE, MEDICAID ==
[~2021-12-12] VITALS: Ht 165.1 cm; Wt 78.5 kg
[2021-12-12] MEDS ORDERED: SODIUM CHLORIDE 0.9% 500 ML IV ONE (09:00)
[2021-12-12 10:16] LABS: BASOPHILS % 1.3 % (0.0-2.0); EOSINOPHILS % 4.7 % (0.0-5.0); HEMATOCRIT. 31.5 % (36.0-48.0); HEMOGLOBIN. 10.4 g/dL (12.0-16.0); LYMPHOCYTES % 33.3 % (20.0-50.0); MEAN CORPUSCULAR HEMOGLOBIN 28.4 pg (28.0-32.0); MEAN CORPUSCULAR VOLUME 86.1 fL (81.0-99.0); MEAN PLATELET VOLUME 7.7 fl (7.4-10.4); MONOCYTES % 9.1 % (2.0-8.0); NEUTROPHILS % 51.6 % (40.0-76.0); PLATELET 188 x1000/uL (130-400); RED BLOOD CELL COUNT 3.66 mill/uL (4.2-5.4); RED CELL DISTRIBUTION WIDTH 15.1 % (11.6-14.6)
[2021-12-12 10:22] LABS: CHLORIDE 113 mEq/L (98-107)
[2021-12-12 10:24] LABS: INR 1.8; PROTHROMBIN TIME 18.1 sec (9.6-11.0)
[2021-12-12 10:29] LABS: HCG SCREEN NEGATIVE
[2021-12-12 10:33] LABS: ETHANOL BLOOD < 10 mg/dL
[2021-12-12] MEDS ORDERED: LEVOFLOXACIN 500MG PREMIX 100 ML IV ONE (12:30)
[2021-12-12 15:48] LABS: CLARITY URINE CLEAR (CLEAR); COLOR URINE YELLOW (YELLOW); KETONES URINE NEGATIVE (NEGATIVE); LEUKOCYTE ESTERASE URINE NEGATIVE (NEGATIVE); NITRITE URINE NEGATIVE (NEGATIVE); OCCULT BLOOD URINE NEGATIVE (NEGATIVE); PROTEIN URINE 1+ (NEGATIVE); SPECIFIC GRAVITY URINE 1.017 (1.005-1.030)
[2021-12-12 16:13] LABS: *AMPHETAMINES SCREEN URINE NEGATIVE (NEGATIVE); *BARBITURATES SCREEN URINE NEGATIVE (NEGATIVE); *BENZODIAZEPINES SCREEN URINE NEGATIVE (NEGATIVE); *COCAINE SCREEN URINE NEGATIVE (NEGATIVE); CANNABINOID URINE SCREEN NEGATIVE (NEGATIVE); METHADONE URINE SCREEN NEGATIVE (NEGATIVE); OPIATES URINE SCREEN NEGATIVE (NEGATIVE); PHENCYCLIDINE URINE SCREEN NEGATIVE (NEGATIVE)
[2021-12-12] MEDS ORDERED: LEVOFLOXACIN 500MG PREMIX 100 ML IV NR (18:45)
[2021-12-12 22:00] VITALS: BP 136/77
[2021-12-12] MEDS ORDERED: CLONIDINE 0.1MG TABLET PO PRN (23:45)
[2021-12-12] MEDS ORDERED: NALOXONE HCL 0.4MG/ML VIAL IV PRN (23:45)
[2021-12-13] VITALS: BP 130/88
[2021-12-13] MEDS: OXYCODONE HCL/ACETAMINOPHEN 5/325MG TABLET PO PRN ×5 (00:18→17:42)
[2021-12-13 04:00] VITALS: BP 111/64
[2021-12-13 08:24] VITALS: BP 119/67
[2021-12-13 12:26] VITALS: BP 130/64
[2021-12-13] MEDS: HYDRALAZINE HCL 100MG TABLET PO SCH ×2 (14:00→21:48)
[2021-12-13 16:00] VITALS: BP 136/64
[2021-12-13] MEDS: GABAPENTIN 300MG CAPSULE PO SCH (17:41)
[2021-12-13] MEDS: PANTOPRAZOLE 40MG DR TABLET PO SCH (17:41)
[2021-12-13] MEDS: LEVETIRACETAM 250MG TABLET PO SCH ×2 (17:42→21:47)
[2021-12-13] MEDS: HYDROXYCHLOROQUINE SULFATE 200MG TABLET PO SCH (17:43)
[2021-12-13] MEDS ORDERED: WARFARIN SODIUM 2.5MG TABLET PO NR (18:00)
[2021-12-13 20:00] VITALS: BP 152/81
[2021-12-13] MEDS: TEMAZEPAM 15MG CAPSULE PO SCH (21:46)
[2021-12-14] VITALS (7 sets, daily range): BP systolic 110–137; BP diastolic 52–81
[2021-12-14 01:02] LABS: AMYLASE 76 IU/L (25-115)
[2021-12-14 01:29] LABS: PROTHROMBIN TIME 20.2 sec (9.6-11.0)
[2021-12-14] MEDS: OXYCODONE HCL/ACETAMINOPHEN 5/325MG TABLET PO PRN ×3 (04:09→21:01)
[2021-12-14] MEDS: PANTOPRAZOLE 40MG DR TABLET PO SCH (06:32)
[2021-12-14] MEDS: HYDRALAZINE HCL 100MG TABLET PO SCH ×3 (06:32→21:01)
[2021-12-14 07:14] LABS: HEMOGLOBIN. 9.7 g/dL (12.0-16.0); PLATELET 162 x1000/uL (130-400)
[2021-12-14 07:18] LABS: PROTHROMBIN TIME 20.6 sec (9.6-11.0)
[2021-12-14 07:40] LABS: EOSINOPHILS % 5.1 % (0.0-5.0); HEMATOCRIT. 28.8 % (36.0-48.0); LYMPHOCYTES % 25.3 % (20.0-50.0); MEAN CORPUSCULAR HEMOGLOBIN 28.8 pg (28.0-32.0); MEAN CORPUSCULAR VOLUME 85.7 fL (81.0-99.0); MEAN PLATELET VOLUME 7.8 fl (7.4-10.4); MONOCYTES % 9.7 % (2.0-8.0); NEUTROPHILS % 58.9 % (40.0-76.0); RED BLOOD CELL COUNT 3.36 mill/uL (4.2-5.4); RED CELL DISTRIBUTION WIDTH 15.1 % (11.6-14.6)
[2021-12-14] MEDS: HYDROXYCHLOROQUINE SULFATE 200MG TABLET PO SCH (08:53)
[2021-12-14] MEDS: CLOPIDOGREL 75MG TABLET PO SCH (08:53)
[2021-12-14] MEDS: LEVETIRACETAM 250MG TABLET PO SCH ×2 (08:53→21:01)
[2021-12-14] MEDS: GABAPENTIN 300MG CAPSULE PO SCH ×3 (08:53→17:07)
[2021-12-14] MEDS: AMLODIPINE 5MG TABLET PO SCH (08:54)
[2021-12-14] MEDS ORDERED: LIDOCAINE HCL 1% 10 MG/ML 10ML VIAL ONE (12:52)
[2021-12-14] MEDS ORDERED: WARFARIN SODIUM 2.5MG TABLET PO NR (18:00)
[2021-12-14] MEDS: TEMAZEPAM 15MG CAPSULE PO SCH (21:01)
[2021-12-15] MEDS: OXYCODONE HCL/ACETAMINOPHEN 5/325MG TABLET PO PRN ×5 (00:49→20:39)
[2021-12-15 05:30] VITALS: BP 127/77
[2021-12-15] MEDS: HYDRALAZINE HCL 100MG TABLET PO SCH ×3 (05:49→20:39)
[2021-12-15 06:51] LABS: INR 1.9; PROTHROMBIN TIME 19.8 sec (9.6-11.0)
[2021-12-15 06:53] LABS: EOSINOPHILS % 6.6 % (0.0-5.0); HEMATOCRIT. 26.7 % (36.0-48.0); HEMOGLOBIN. 8.9 g/dL (12.0-16.0); LYMPHOCYTES % 30.7 % (20.0-50.0); MEAN CORPUSCULAR HEMOGLOBIN 28.8 pg (28.0-32.0); MEAN CORPUSCULAR VOLUME 86.6 fL (81.0-99.0); MEAN PLATELET VOLUME 7.6 fl (7.4-10.4); MONOCYTES % 10.8 % (2.0-8.0); NEUTROPHILS % 50.9 % (40.0-76.0); PLATELET 143 x1000/uL (130-400); RED BLOOD CELL COUNT 3.08 mill/uL (4.2-5.4); RED CELL DISTRIBUTION WIDTH 14.8 % (11.6-14.6)
[2021-12-15 08:00] VITALS: BP 122/74
[2021-12-15] MEDS: HYDROXYCHLOROQUINE SULFATE 200MG TABLET PO SCH (09:20)
[2021-12-15] MEDS: CLOPIDOGREL 75MG TABLET PO SCH (09:20)
[2021-12-15] MEDS: AMLODIPINE 5MG TABLET PO SCH (09:20)
[2021-12-15] MEDS: GABAPENTIN 300MG CAPSULE PO SCH ×3 (09:20→17:06)
[2021-12-15] MEDS: LEVETIRACETAM 250MG TABLET PO SCH ×2 (09:20→20:39)
[2021-12-15] MEDS: FAMOTIDINE 20MG TABLET PO SCH (09:21)
[2021-12-15 12:00] VITALS: BP 146/82
[2021-12-15 16:00] VITALS: BP 108/66
[2021-12-15] MEDS ORDERED: WARFARIN SODIUM 2.5MG TABLET PO NR (18:00)
[2021-12-15] MEDS ORDERED: PENT400T16 PO (18:28)
[2021-12-15] MEDS ORDERED: WARF-53 PO (18:28)
[2021-12-15] MEDS ORDERED: CLON0.1T PO (18:29)
[2021-12-15 20:00] VITALS: BP 115/68
[2021-12-15] MEDS: TEMAZEPAM 15MG CAPSULE PO SCH (20:39)
[2021-12-16] VITALS: BP 121/66
[2021-12-16] MEDS: OXYCODONE HCL/ACETAMINOPHEN 5/325MG TABLET PO PRN ×6 (00:11→22:10)
[2021-12-16 04:00] VITALS: BP 110/68
[2021-12-16] MEDS: HYDRALAZINE HCL 100MG TABLET PO SCH ×3 (07:12→22:00)
[2021-12-16 07:37] LABS: BASOPHILS % 1.1 % (0.0-2.0); EOSINOPHILS % 5.8 % (0.0-5.0); HEMATOCRIT. 27.1 % (36.0-48.0); LYMPHOCYTES % 30.6 % (20.0-50.0); MEAN CORPUSCULAR HEMOGLOBIN 28.6 pg (28.0-32.0); MEAN CORPUSCULAR VOLUME 86.2 fL (81.0-99.0); MEAN PLATELET VOLUME 7.6 fl (7.4-10.4); MONOCYTES % 9.4 % (2.0-8.0); NEUTROPHILS % 53.1 % (40.0-76.0); PLATELET 137 x1000/uL (130-400); RED BLOOD CELL COUNT 3.14 mill/uL (4.2-5.4); RED CELL DISTRIBUTION WIDTH 14.9 % (11.6-14.6)
[2021-12-16 08:00] VITALS: BP 102/50
[2021-12-16] MEDS: GABAPENTIN 300MG CAPSULE PO SCH ×3 (08:50→17:30)
[2021-12-16] MEDS: FAMOTIDINE 20MG TABLET PO SCH (08:50)
[2021-12-16] MEDS: AMLODIPINE 5MG TABLET PO SCH (08:50)
[2021-12-16] MEDS: CLOPIDOGREL 75MG TABLET PO SCH (08:50)
[2021-12-16] MEDS: HYDROXYCHLOROQUINE SULFATE 200MG TABLET PO SCH (08:50)
[2021-12-16] MEDS: LEVETIRACETAM 250MG TABLET PO SCH ×2 (08:53→22:09)
[2021-12-16 12:00] VITALS: BP 108/48
[2021-12-16] MEDS: CYCLOBENZAPRINE 10MG TABLET PO PRN ×2 (14:53→23:20)
[2021-12-16 15:50] VITALS: BP 136/73
[2021-12-16 16:05] LABS: INR 1.8; PROTHROMBIN TIME 18.5 sec (9.6-11.0)
[2021-12-16] MEDS ORDERED: WARFARIN SODIUM 3MG TABLET PO NR (18:00)
[2021-12-16 20:00] VITALS: BP 118/81
[2021-12-16] MEDS: TEMAZEPAM 15MG CAPSULE PO SCH (23:21)
[2021-12-17] VITALS: BP 122/73
[2021-12-17] MEDS: OXYCODONE HCL/ACETAMINOPHEN 5/325MG TABLET PO PRN ×5 (02:17→22:54)
[2021-12-17 04:00] VITALS: BP 122/62
[2021-12-17] MEDS: HYDRALAZINE HCL 100MG TABLET PO SCH ×2 (06:00→13:28)
[2021-12-17 07:35] LABS: BASOPHILS % 0.7 % (0.0-2.0); EOSINOPHILS % 4.6 % (0.0-5.0); HEMATOCRIT. 24.9 % (36.0-48.0); HEMOGLOBIN. 8.4 g/dL (12.0-16.0); LYMPHOCYTES % 26.6 % (20.0-50.0); MEAN CORPUSCULAR HEMOGLOBIN 28.7 pg (28.0-32.0); MEAN CORPUSCULAR VOLUME 85.3 fL (81.0-99.0); MEAN PLATELET VOLUME 7.8 fl (7.4-10.4); MONOCYTES % 8.9 % (2.0-8.0); NEUTROPHILS % 59.2 % (40.0-76.0); PLATELET 131 x1000/uL (130-400); RED BLOOD CELL COUNT 2.92 mill/uL (4.2-5.4); RED CELL DISTRIBUTION WIDTH 14.5 % (11.6-14.6)
[2021-12-17 07:37] LABS: PHOSPHORUS 3.9 mg/dL (2.5-4.9)
[2021-12-17 07:42] LABS: INR 1.6; PROTHROMBIN TIME 16.2 sec (9.6-11.0)
[2021-12-17 08:00] VITALS: BP 116/46
[2021-12-17] MEDS: CLOPIDOGREL 75MG TABLET PO SCH (08:16)
[2021-12-17] MEDS: HYDROXYCHLOROQUINE SULFATE 200MG TABLET PO SCH (08:16)
[2021-12-17] MEDS: FAMOTIDINE 20MG TABLET PO SCH (08:16)
[2021-12-17] MEDS: LEVETIRACETAM 250MG TABLET PO SCH ×2 (08:16→21:19)
[2021-12-17] MEDS: GABAPENTIN 300MG CAPSULE PO SCH ×3 (08:16→17:27)
[2021-12-17] MEDS: AMLODIPINE 5MG TABLET PO SCH (08:17)
[2021-12-17 12:00] VITALS: BP 108/71
[2021-12-17] MEDS: CYCLOBENZAPRINE 10MG TABLET PO PRN (12:33)
[2021-12-17 16:00] VITALS: BP 129/72
[2021-12-17] MEDS: HYDRALAZINE HCL 50MG TABLET PO SCH (17:00)
[2021-12-17] MEDS: POLYVINYL ALCOHOL OPHTH DROPS 15ML BOTHEYE PRN (17:36)
[2021-12-17] MEDS ORDERED: WARFARIN SODIUM 5MG TABLET PO NR (18:00)
[2021-12-17 20:00] VITALS: BP 150/79
[2021-12-17] MEDS: MIRTAZAPINE 15MG TABLET PO SCH (21:19)
[2021-12-18] VITALS: BP 121/67
[2021-12-18 04:00] VITALS: BP 126/76
[2021-12-18] MEDS: CYCLOBENZAPRINE 10MG TABLET PO PRN (05:09)
[2021-12-18] MEDS: POLYVINYL ALCOHOL OPHTH DROPS 15ML BOTHEYE PRN (05:09)
[2021-12-18 06:04] LABS: CHLORIDE 106 mEq/L (98-107)
[2021-12-18 06:08] LABS: BASOPHILS % 1.3 % (0.0-2.0); EOSINOPHILS % 6.4 % (0.0-5.0); HEMATOCRIT. 25.3 % (36.0-48.0); HEMOGLOBIN. 8.5 g/dL (12.0-16.0); MEAN CORPUSCULAR HEMOGLOBIN 28.6 pg (28.0-32.0); MEAN CORPUSCULAR VOLUME 84.8 fL (81.0-99.0); MEAN PLATELET VOLUME 7.7 fl (7.4-10.4); MONOCYTES % 9.8 % (2.0-8.0); NEUTROPHILS % 48.5 % (40.0-76.0); PLATELET 125 x1000/uL (130-400); RED BLOOD CELL COUNT 2.99 mill/uL (4.2-5.4); RED CELL DISTRIBUTION WIDTH 14.6 % (11.6-14.6)
[2021-12-18 06:19] LABS: PHOSPHORUS 4.2 mg/dL (2.5-4.9)
[2021-12-18 06:27] LABS: INR 1.8; PROTHROMBIN TIME 18.6 sec (9.6-11.0)
[2021-12-18 08:11] VITALS: BP 123/71
[2021-12-18] MEDS: CLOPIDOGREL 75MG TABLET PO SCH (08:36)
[2021-12-18] MEDS: GABAPENTIN 300MG CAPSULE PO SCH ×3 (08:36→16:42)
[2021-12-18] MEDS: HYDROXYCHLOROQUINE SULFATE 200MG TABLET PO SCH (08:36)
[2021-12-18] MEDS: FAMOTIDINE 20MG TABLET PO SCH (08:36)
[2021-12-18] MEDS: AMLODIPINE 5MG TABLET PO SCH (08:36)
[2021-12-18] MEDS: HYDRALAZINE HCL 50MG TABLET PO SCH ×2 (08:36→16:43)
[2021-12-18] MEDS: LEVETIRACETAM 250MG TABLET PO SCH ×2 (08:38→21:26)
[2021-12-18] MEDS: OXYCODONE HCL/ACETAMINOPHEN 5/325MG TABLET PO PRN ×3 (10:27→23:52)
[2021-12-18] MEDS ORDERED: NALOXONE HCL 0.4MG/ML VIAL IV PRN (10:30)
[2021-12-18] MEDS ORDERED: ERYTHROMYCIN BASE 0.5% OPHTH OINT 3.5GM RIGHTEYE SCH (10:45)
[2021-12-18 12:02] VITALS: BP 114/65
[2021-12-18] MEDS: ERYTHROMYCIN BASE 0.5% OPHTH OINT 3.5GM RIGHTEYE SCH ×2 (13:45→21:26)
[2021-12-18] MEDS: DIPHENHYDRAMINE HCL/ZINC ACET 28 GM CREAM TOP SCH (14:25)
[2021-12-18 15:19] VITALS: BP 123/71
[2021-12-18] MEDS ORDERED: WARFARIN SODIUM 5MG TABLET PO NR (18:00)
[2021-12-18 20:00] VITALS: BP 141/70
[2021-12-18] MEDS: MIRTAZAPINE 15MG TABLET PO SCH (21:26)
[2021-12-19] VITALS: BP 134/85
[2021-12-19 04:00] VITALS: BP 137/62
[2021-12-19] MEDS: ERYTHROMYCIN BASE 0.5% OPHTH OINT 3.5GM RIGHTEYE SCH ×3 (06:44→22:30)
[2021-12-19] MEDS: OXYCODONE HCL/ACETAMINOPHEN 5/325MG TABLET PO PRN ×3 (06:49→20:13)
[2021-12-19 08:00] VITALS: BP 129/74
[2021-12-19] MEDS: HYDRALAZINE HCL 50MG TABLET PO SCH ×2 (09:00→18:06)
[2021-12-19] MEDS: CLOPIDOGREL 75MG TABLET PO SCH (10:27)
[2021-12-19] MEDS: HYDROXYCHLOROQUINE SULFATE 200MG TABLET PO SCH (10:27)
[2021-12-19] MEDS: FAMOTIDINE 20MG TABLET PO SCH (10:27)
[2021-12-19] MEDS: GABAPENTIN 300MG CAPSULE PO SCH ×3 (10:27→18:06)
[2021-12-19] MEDS: AMLODIPINE 5MG TABLET PO SCH (10:28)
[2021-12-19] MEDS: DIPHENHYDRAMINE HCL/ZINC ACET 28 GM CREAM TOP SCH (10:31)
[2021-12-19] MEDS: LEVETIRACETAM 250MG TABLET PO SCH ×2 (10:31→20:13)
[2021-12-19 11:31] LABS: PROTHROMBIN TIME 20.1 sec (9.6-11.0)
[2021-12-19 12:00] VITALS: BP 102/63
[2021-12-19 16:00] VITALS: BP 146/89
[2021-12-19] MEDS ORDERED: WARFARIN SODIUM 5MG TABLET PO NR (18:00)
[2021-12-19 20:00] VITALS: BP 130/79
[2021-12-19] MEDS: MIRTAZAPINE 15MG TABLET PO SCH (20:13)
[2021-12-19] MEDS: LORAZEPAM 0.5MG TABLET PO PRN (22:30)
[2021-12-20] VITALS: BP 115/71
[2021-12-20] MEDS: OXYCODONE HCL/ACETAMINOPHEN 5/325MG TABLET PO PRN ×4 (02:14→20:59)
[2021-12-20 04:00] VITALS: BP 120/69
[2021-12-20] MEDS: ERYTHROMYCIN BASE 0.5% OPHTH OINT 3.5GM RIGHTEYE SCH ×3 (05:41→21:00)
[2021-12-20 06:41] LABS: INR 2.8; PROTHROMBIN TIME 27.4 sec (9.6-11.0)
[2021-12-20 07:49] LABS: BASOPHILS % 1.2 % (0.0-2.0); EOSINOPHILS % 4.9 % (0.0-5.0); HEMATOCRIT. 23.7 % (36.0-48.0); HEMOGLOBIN. 7.9 g/dL (12.0-16.0); LYMPHOCYTES % 31.8 % (20.0-50.0); MEAN CORPUSCULAR HEMOGLOBIN 28.7 pg (28.0-32.0); MONOCYTES % 10.8 % (2.0-8.0); NEUTROPHILS % 51.3 % (40.0-76.0); PLATELET 130 x1000/uL (130-400); RED BLOOD CELL COUNT 2.76 mill/uL (4.2-5.4); RED CELL DISTRIBUTION WIDTH 14.7 % (11.6-14.6)
[2021-12-20 07:59] LABS: PHOSPHORUS 4.2 mg/dL (2.5-4.9)
[2021-12-20 08:00] VITALS: BP 120/61
[2021-12-20] MEDS: HYDRALAZINE HCL 50MG TABLET PO SCH ×2 (08:50→17:00)
[2021-12-20] MEDS: GABAPENTIN 300MG CAPSULE PO SCH ×3 (09:04→17:20)
[2021-12-20] MEDS: DIPHENHYDRAMINE HCL/ZINC ACET 28 GM CREAM TOP SCH (09:05)
[2021-12-20] MEDS: FAMOTIDINE 20MG TABLET PO SCH (09:05)
[2021-12-20] MEDS: AMLODIPINE 5MG TABLET PO SCH (09:05)
[2021-12-20] MEDS: CLOPIDOGREL 75MG TABLET PO SCH (09:05)
[2021-12-20 12:00] VITALS: BP 107/69
[2021-12-20] MEDS: LEVETIRACETAM 250MG TABLET PO SCH ×2 (12:27→20:58)
[2021-12-20] MEDS: HYDROXYCHLOROQUINE SULFATE 200MG TABLET PO SCH (12:27)
[2021-12-20 16:00] VITALS: BP 124/70
[2021-12-20] MEDS ORDERED: WARFARIN SODIUM 2.5MG TABLET PO NR (18:00)
[2021-12-20 20:00] VITALS: BP 124/61
[2021-12-20] MEDS: MIRTAZAPINE 15MG TABLET PO SCH (20:58)
[2021-12-20] MEDS: LORAZEPAM 0.5MG TABLET PO PRN (22:28)
[2021-12-20] MEDS: CYCLOBENZAPRINE 10MG TABLET PO PRN (23:51)
[2021-12-21] VITALS: BP_SYST 113; BP_SYST 126; BP_DIAS 56; BP_DIAS 72
[2021-12-21 04:00] VITALS: BP 120/76
[2021-12-21] MEDS: OXYCODONE HCL/ACETAMINOPHEN 5/325MG TABLET PO PRN ×3 (04:05→20:13)
[2021-12-21] MEDS: ERYTHROMYCIN BASE 0.5% OPHTH OINT 3.5GM RIGHTEYE SCH ×3 (05:47→22:00)
[2021-12-21 07:34] LABS: INR 2.1; PROTHROMBIN TIME 20.9 sec (9.6-11.0)
[2021-12-21 07:36] LABS: BASOPHILS % 0.9 % (0.0-2.0); EOSINOPHILS % 5.2 % (0.0-5.0); HEMATOCRIT. 21.7 % (36.0-48.0); HEMOGLOBIN. 7.3 g/dL (12.0-16.0); LYMPHOCYTES % 27.7 % (20.0-50.0); MEAN CORPUSCULAR HEMOGLOBIN 29.2 pg (28.0-32.0); MEAN CORPUSCULAR VOLUME 87.1 fL (81.0-99.0); MEAN PLATELET VOLUME 7.6 fl (7.4-10.4); MONOCYTES % 9.8 % (2.0-8.0); NEUTROPHILS % 56.4 % (40.0-76.0); PLATELET 126 x1000/uL (130-400); RED BLOOD CELL COUNT 2.49 mill/uL (4.2-5.4)
[2021-12-21 08:00] VITALS: BP 136/72
[2021-12-21 08:00] LABS: PHOSPHORUS 3.6 mg/dL (2.5-4.9)
[2021-12-21] MEDS: LEVETIRACETAM 250MG TABLET PO SCH ×2 (08:28→21:55)
[2021-12-21] MEDS: HYDROXYCHLOROQUINE SULFATE 200MG TABLET PO SCH (08:28)
[2021-12-21] MEDS: AMLODIPINE 5MG TABLET PO SCH (08:28)
[2021-12-21] MEDS: CLOPIDOGREL 75MG TABLET PO SCH (08:28)
[2021-12-21] MEDS: HYDRALAZINE HCL 50MG TABLET PO SCH ×2 (08:28→17:54)
[2021-12-21] MEDS: FAMOTIDINE 20MG TABLET PO SCH (08:28)
[2021-12-21] MEDS: GABAPENTIN 300MG CAPSULE PO SCH ×3 (08:28→17:53)
[2021-12-21] MEDS: DIPHENHYDRAMINE HCL/ZINC ACET 28 GM CREAM TOP SCH (08:30)
[2021-12-21] MEDS: ACETAMINOPHEN 325MG TABLET PO PRN (09:39)
[2021-12-21 12:00] VITALS: BP 109/62
[2021-12-21 16:00] VITALS: BP 123/71
[2021-12-21] MEDS ORDERED: WARFARIN SODIUM 3MG TABLET PO NR (18:00)
[2021-12-21 20:00] VITALS: BP 170/82
[2021-12-21] MEDS: MIRTAZAPINE 15MG TABLET PO SCH (21:00)
[2021-12-21] MEDS: CYCLOBENZAPRINE 10MG TABLET PO PRN (21:56)
[2021-12-21] MEDS: LORAZEPAM 0.5MG TABLET PO PRN (22:06)
[2021-12-22] VITALS: BP 149/63
[2021-12-22] MEDS: OXYCODONE HCL/ACETAMINOPHEN 5/325MG TABLET PO PRN ×3 (02:46→17:04)
[2021-12-22 04:00] VITALS: BP 105/60
[2021-12-22] MEDS: ERYTHROMYCIN BASE 0.5% OPHTH OINT 3.5GM RIGHTEYE SCH ×3 (05:03→21:50)
[2021-12-22 07:08] LABS: HIV SCREEN 4G Non Reactive (Non Reactive)
[2021-12-22 08:00] VITALS: BP 137/86
[2021-12-22] MEDS: FAMOTIDINE 20MG TABLET PO SCH (08:56)
[2021-12-22] MEDS: HYDRALAZINE HCL 50MG TABLET PO SCH ×2 (08:56→17:04)
[2021-12-22] MEDS: HYDROXYCHLOROQUINE SULFATE 200MG TABLET PO SCH (08:57)
[2021-12-22] MEDS: CLOPIDOGREL 75MG TABLET PO SCH (08:57)
[2021-12-22] MEDS: LEVETIRACETAM 250MG TABLET PO SCH ×2 (08:57→21:49)
[2021-12-22] MEDS: AMLODIPINE 5MG TABLET PO SCH (08:57)
[2021-12-22] MEDS: GABAPENTIN 300MG CAPSULE PO SCH ×3 (08:57→17:04)
[2021-12-22] MEDS: DIPHENHYDRAMINE HCL/ZINC ACET 28 GM CREAM TOP SCH (09:07)
[2021-12-22 12:00] VITALS: BP 133/81
[2021-12-22 15:27] LABS: BASOPHILS % 0.7 % (0.0-2.0); EOSINOPHILS % 5.6 % (0.0-5.0); HEMATOCRIT. 25.5 % (36.0-48.0); HEMOGLOBIN. 8.5 g/dL (12.0-16.0); LYMPHOCYTES % 26.8 % (20.0-50.0); MEAN CORPUSCULAR HEMOGLOBIN 28.7 pg (28.0-32.0); MEAN CORPUSCULAR VOLUME 86.2 fL (81.0-99.0); MEAN PLATELET VOLUME 7.9 fl (7.4-10.4); MONOCYTES % 9.2 % (2.0-8.0); NEUTROPHILS % 57.7 % (40.0-76.0); PLATELET 171 x1000/uL (130-400); RED BLOOD CELL COUNT 2.96 mill/uL (4.2-5.4); RED CELL DISTRIBUTION WIDTH 14.8 % (11.6-14.6)
[2021-12-22 15:57] LABS: PHOSPHORUS 4.1 mg/dL (2.5-4.9)
[2021-12-22 16:00] VITALS: BP 129/75
[2021-12-22] MEDS ORDERED: WARFARIN SODIUM 3MG TABLET PO NR (18:00)
[2021-12-22 20:00] VITALS: BP 140/85
[2021-12-22] MEDS: MIRTAZAPINE 15MG TABLET PO SCH (21:49)
[2021-12-22] MEDS: DOCUSATE SODIUM 100MG CAPSULE PO SCH (21:49)
[2021-12-22] MEDS: LORAZEPAM 0.5MG TABLET PO PRN (21:49)
[2021-12-23] VITALS (7 sets, daily range): BP systolic 117–143; BP diastolic 66–83
[2021-12-23] MEDS: OXYCODONE HCL/ACETAMINOPHEN 5/325MG TABLET PO PRN ×3 (00:04→18:03)
[2021-12-23] MEDS: ERYTHROMYCIN BASE 0.5% OPHTH OINT 3.5GM RIGHTEYE SCH ×3 (06:00→21:37)
[2021-12-23 06:13] LABS: PROTHROMBIN TIME 20.1 sec (9.6-11.0)
[2021-12-23 06:45] LABS: PHOSPHORUS 4.1 mg/dL (2.5-4.9)
[2021-12-23 07:21] LABS: EOSINOPHILS % 5.3 % (0.0-5.0); HEMOGLOBIN. 7.2 g/dL (12.0-16.0); LYMPHOCYTES % 32.6 % (20.0-50.0); MEAN CORPUSCULAR HEMOGLOBIN 27.9 pg (28.0-32.0); MEAN CORPUSCULAR VOLUME 85.2 fL (81.0-99.0); MEAN PLATELET VOLUME 7.8 fl (7.4-10.4); MONOCYTES % 8.7 % (2.0-8.0); NEUTROPHILS % 52.4 % (40.0-76.0); PLATELET 196 x1000/uL (130-400); RED BLOOD CELL COUNT 2.58 mill/uL (4.2-5.4); RED CELL DISTRIBUTION WIDTH 14.5 % (11.6-14.6)
[2021-12-23] MEDS: DIPHENHYDRAMINE HCL/ZINC ACET 28 GM CREAM TOP SCH ×2 (09:00→09:30)
[2021-12-23] MEDS: GABAPENTIN 300MG CAPSULE PO SCH ×3 (09:28→18:00)
[2021-12-23] MEDS: CLOPIDOGREL 75MG TABLET PO SCH (09:28)
[2021-12-23] MEDS: HYDRALAZINE HCL 50MG TABLET PO SCH ×2 (09:28→18:00)
[2021-12-23] MEDS: FAMOTIDINE 20MG TABLET PO SCH (09:28)
[2021-12-23] MEDS: DOCUSATE SODIUM 100MG CAPSULE PO SCH ×2 (09:28→18:01)
[2021-12-23] MEDS: LEVETIRACETAM 250MG TABLET PO SCH ×2 (09:29→21:36)
[2021-12-23] MEDS: HYDROXYCHLOROQUINE SULFATE 200MG TABLET PO SCH (09:29)
[2021-12-23] MEDS: AMLODIPINE 5MG TABLET PO SCH (09:29)
[2021-12-23] MEDS ORDERED: MELATONIN 3 MG XX SCH (11:45)
[2021-12-23] MEDS: ACETAMINOPHEN 325MG TABLET PO PRN (15:22)
[2021-12-23] MEDS ORDERED: WARFARIN SODIUM 3MG TABLET PO NR (18:00)
[2021-12-23] MEDS: MELATONIN 3MG TABLET PO SCH (21:36)
[2021-12-23] MEDS: CYCLOBENZAPRINE 10MG TABLET PO PRN (21:36)
[2021-12-23] MEDS: MIRTAZAPINE 15MG TABLET PO SCH (21:36)
[2021-12-23] MEDS: LORAZEPAM 0.5MG TABLET PO PRN (21:36)
[2021-12-24] VITALS: BP 133/72
[2021-12-24 04:00] VITALS: BP 129/81
[2021-12-24] MEDS: ERYTHROMYCIN BASE 0.5% OPHTH OINT 3.5GM RIGHTEYE SCH ×3 (06:00→20:58)
[2021-12-24 06:25] LABS: BASOPHILS % 0.5 % (0.0-2.0); EOSINOPHILS % 4.5 % (0.0-5.0); LYMPHOCYTES % 22.8 % (20.0-50.0); MEAN CORPUSCULAR HEMOGLOBIN 28.9 pg (28.0-32.0); MEAN CORPUSCULAR VOLUME 84.5 fL (81.0-99.0); MEAN PLATELET VOLUME 7.6 fl (7.4-10.4); MONOCYTES % 8.9 % (2.0-8.0); NEUTROPHILS % 63.3 % (40.0-76.0); PLATELET 167 x1000/uL (130-400); RED BLOOD CELL COUNT 2.96 mill/uL (4.2-5.4); RED CELL DISTRIBUTION WIDTH 14.8 % (11.6-14.6)
[2021-12-24 06:29] LABS: INR 2.1; PROTHROMBIN TIME 21.7 sec (9.6-11.0)
[2021-12-24 06:32] LABS: PHOSPHORUS 3.8 mg/dL (2.5-4.9)
[2021-12-24 07:12] LABS: HEMOGLOBIN. 8.5 g/dL (12.0-16.0)
[2021-12-24 08:00] VITALS: BP_SYST 127; BP_SYST 136; BP_DIAS 52; BP_DIAS 77
[2021-12-24] MEDS: DIPHENHYDRAMINE HCL/ZINC ACET 28 GM CREAM TOP SCH (09:00)
[2021-12-24] MEDS: GABAPENTIN 300MG CAPSULE PO SCH ×3 (09:26→19:04)
[2021-12-24] MEDS: DOCUSATE SODIUM 100MG CAPSULE PO SCH ×2 (09:27→17:56)
[2021-12-24] MEDS: FAMOTIDINE 20MG TABLET PO SCH (09:28)
[2021-12-24] MEDS: HYDRALAZINE HCL 50MG TABLET PO SCH ×2 (09:28→17:59)
[2021-12-24] MEDS: CLOPIDOGREL 75MG TABLET PO SCH (09:28)
[2021-12-24] MEDS: AMLODIPINE 5MG TABLET PO SCH (09:28)
[2021-12-24] MEDS: HYDROXYCHLOROQUINE SULFATE 200MG TABLET PO SCH (09:29)
[2021-12-24] MEDS: LEVETIRACETAM 250MG TABLET PO SCH ×2 (09:29→20:57)
[2021-12-24] MEDS: OXYCODONE HCL/ACETAMINOPHEN 5/325MG TABLET PO PRN ×2 (09:35→17:58)
[2021-12-24 12:00] VITALS: BP 115/73
[2021-12-24] MEDS: FLUOXETINE HCL 10 MG CAPSULE PO SCH (15:04)
[2021-12-24 16:00] VITALS: BP 129/74
[2021-12-24] MEDS ORDERED: WARFARIN SODIUM 3MG TABLET PO NR (18:00)
[2021-12-24 20:00] VITALS: BP 126/85
[2021-12-24] MEDS: MIRTAZAPINE 15MG TABLET PO SCH (20:57)
[2021-12-24] MEDS: MELATONIN 3MG TABLET PO SCH (20:57)
[2021-12-24] MEDS: QUETIAPINE FUMARATE 25MG TABLET PO SCH (20:57)
[2021-12-24] MEDS: CYCLOBENZAPRINE 10MG TABLET PO PRN (21:57)
[2021-12-25] VITALS: BP 120/68
[2021-12-25] MEDS: OXYCODONE HCL/ACETAMINOPHEN 5/325MG TABLET PO PRN ×3 (00:18→17:52)
[2021-12-25] MEDS: LORAZEPAM 0.5MG TABLET PO PRN ×2 (00:18→23:40)
[2021-12-25 04:00] VITALS: BP 118/59
[2021-12-25] MEDS: ERYTHROMYCIN BASE 0.5% OPHTH OINT 3.5GM RIGHTEYE SCH ×2 (06:19→13:21)
[2021-12-25 08:00] VITALS: BP 101/70
[2021-12-25] MEDS: DIPHENHYDRAMINE HCL/ZINC ACET 28 GM CREAM TOP SCH (09:00)
[2021-12-25] MEDS: AMLODIPINE 5MG TABLET PO SCH (09:00)
[2021-12-25] MEDS: HYDRALAZINE HCL 50MG TABLET PO SCH ×2 (09:00→17:46)
[2021-12-25] MEDS: LEVETIRACETAM 250MG TABLET PO SCH ×2 (09:16→20:44)
[2021-12-25] MEDS: HYDROXYCHLOROQUINE SULFATE 200MG TABLET PO SCH (09:16)
[2021-12-25] MEDS: CLOPIDOGREL 75MG TABLET PO SCH (09:16)
[2021-12-25] MEDS: FAMOTIDINE 20MG TABLET PO SCH (09:16)
[2021-12-25] MEDS: GABAPENTIN 300MG CAPSULE PO SCH ×3 (09:16→17:46)
[2021-12-25] MEDS: FLUOXETINE HCL 10 MG CAPSULE PO SCH (09:16)
[2021-12-25] MEDS: DOCUSATE SODIUM 100MG CAPSULE PO SCH ×2 (09:20→17:46)
[2021-12-25 10:47] LABS: INR 2.5; PROTHROMBIN TIME 24.9 sec (9.6-11.0)
[2021-12-25 12:00] VITALS: BP 114/73
[2021-12-25] MEDS: POLYETHYLENE GLYCOL 3350 (17GM) 1 DOSE PACK PO SCH (13:21)
[2021-12-25 16:00] VITALS: BP 132/77
[2021-12-25] MEDS: LACTULOSE 20G/30ML UDC PO PRN (17:46)
[2021-12-25] MEDS ORDERED: WARFARIN SODIUM 3MG TABLET PO NR (18:00)
[2021-12-25 20:00] VITALS: BP 124/73
[2021-12-25] MEDS: MIRTAZAPINE 15MG TABLET PO SCH (20:44)
[2021-12-25] MEDS: MELATONIN 3MG TABLET PO SCH (20:44)
[2021-12-25] MEDS: QUETIAPINE FUMARATE 25MG TABLET PO SCH (20:44)
[2021-12-25] MEDS: CYCLOBENZAPRINE 10MG TABLET PO PRN (21:42)
[2021-12-26] VITALS: BP 116/70
[2021-12-26] MEDS: OXYCODONE HCL/ACETAMINOPHEN 5/325MG TABLET PO PRN ×3 (01:02→17:22)
[2021-12-26 04:00] VITALS: BP 115/71
[2021-12-26 05:59] LABS: BASOPHILS % 1.1 % (0.0-2.0); HEMATOCRIT. 22.9 % (36.0-48.0); HEMOGLOBIN. 7.7 g/dL (12.0-16.0); LYMPHOCYTES % 28.5 % (20.0-50.0); MEAN CORPUSCULAR HEMOGLOBIN 28.6 pg (28.0-32.0); MEAN CORPUSCULAR VOLUME 85.3 fL (81.0-99.0); MEAN PLATELET VOLUME 7.3 fl (7.4-10.4); MONOCYTES % 9.5 % (2.0-8.0); NEUTROPHILS % 53.9 % (40.0-76.0); PLATELET 195 x1000/uL (130-400); RED BLOOD CELL COUNT 2.68 mill/uL (4.2-5.4); RED CELL DISTRIBUTION WIDTH 14.4 % (11.6-14.6)
[2021-12-26 06:21] LABS: PHOSPHORUS 3.8 mg/dL (2.5-4.9)
[2021-12-26 08:00] VITALS: BP 124/73
[2021-12-26] MEDS: FAMOTIDINE 20MG TABLET PO SCH (08:33)
[2021-12-26] MEDS: POLYETHYLENE GLYCOL 3350 (17GM) 1 DOSE PACK PO SCH (08:33)
[2021-12-26] MEDS: HYDROXYCHLOROQUINE SULFATE 200MG TABLET PO SCH (08:33)
[2021-12-26] MEDS: LEVETIRACETAM 250MG TABLET PO SCH ×2 (08:33→21:50)
[2021-12-26] MEDS: AMLODIPINE 5MG TABLET PO SCH (08:34)
[2021-12-26] MEDS: DOCUSATE SODIUM 100MG CAPSULE PO SCH ×2 (08:34→17:19)
[2021-12-26] MEDS: CLOPIDOGREL 75MG TABLET PO SCH (08:34)
[2021-12-26] MEDS: GABAPENTIN 300MG CAPSULE PO SCH ×3 (08:34→17:19)
[2021-12-26] MEDS: FLUOXETINE HCL 10 MG CAPSULE PO SCH (08:34)
[2021-12-26] MEDS: HYDRALAZINE HCL 50MG TABLET PO SCH ×2 (08:35→17:19)
[2021-12-26] MEDS: DIPHENHYDRAMINE HCL/ZINC ACET 28 GM CREAM TOP SCH (08:36)
[2021-12-26 12:00] VITALS: BP 133/70
[2021-12-26 16:00] VITALS: BP 126/81
[2021-12-26] MEDS: WARFARIN SODIUM 3MG TABLET PO SCH (17:20)
[2021-12-26 20:00] VITALS: BP 136/76
[2021-12-26] MEDS: MIRTAZAPINE 15MG TABLET PO SCH (21:50)
[2021-12-26] MEDS: QUETIAPINE FUMARATE 25MG TABLET PO SCH (21:51)
[2021-12-26] MEDS: MELATONIN 3MG TABLET PO SCH (21:55)
[2021-12-26] MEDS: LACTULOSE 20G/30ML UDC PO PRN (23:56)
[2021-12-27] VITALS: BP 122/72
[2021-12-27] MEDS: OXYCODONE HCL/ACETAMINOPHEN 5/325MG TABLET PO PRN ×3 (00:01→22:32)
[2021-12-27 04:00] VITALS: BP 135/66
[2021-12-27 07:25] LABS: INR 2.4; PROTHROMBIN TIME 24.1 sec (9.6-11.0)
[2021-12-27 08:00] VITALS: BP 124/78
[2021-12-27] MEDS: DIPHENHYDRAMINE HCL/ZINC ACET 28 GM CREAM TOP SCH (09:00)
[2021-12-27] MEDS: HYDRALAZINE HCL 50MG TABLET PO SCH ×2 (09:00→18:22)
[2021-12-27] MEDS: POLYETHYLENE GLYCOL 3350 (17GM) 1 DOSE PACK PO SCH (09:20)
[2021-12-27] MEDS: FLUOXETINE HCL 10 MG CAPSULE PO SCH (09:20)
[2021-12-27] MEDS: GABAPENTIN 300MG CAPSULE PO SCH ×3 (09:21→18:22)
[2021-12-27] MEDS: DOCUSATE SODIUM 100MG CAPSULE PO SCH ×2 (09:21→18:22)
[2021-12-27] MEDS: AMLODIPINE 5MG TABLET PO SCH (09:21)
[2021-12-27] MEDS: FAMOTIDINE 20MG TABLET PO SCH (09:21)
[2021-12-27] MEDS: LEVETIRACETAM 250MG TABLET PO SCH ×2 (09:21→22:32)
[2021-12-27] MEDS: CLOPIDOGREL 75MG TABLET PO SCH (09:21)
[2021-12-27] MEDS: HYDROXYCHLOROQUINE SULFATE 200MG TABLET PO SCH (09:21)
[2021-12-27 12:00] VITALS: BP 116/62
[2021-12-27 16:00] VITALS: BP 143/80
[2021-12-27] MEDS: WARFARIN SODIUM 3MG TABLET PO SCH (18:22)
[2021-12-27] MEDS ORDERED: NALOXONE HCL 0.4MG/ML VIAL IV PRN (19:45)
[2021-12-27 20:00] VITALS: BP 138/81
[2021-12-27] MEDS: MIRTAZAPINE 15MG TABLET PO SCH (22:32)
[2021-12-27] MEDS: QUETIAPINE FUMARATE 25MG TABLET PO SCH (22:32)
[2021-12-27] MEDS: MELATONIN 3MG TABLET PO SCH (22:33)
[2021-12-27] MEDS: LACTULOSE 20G/30ML UDC PO PRN (22:37)
[2021-12-28] VITALS (7 sets, daily range): BP systolic 122–140; BP diastolic 69–83
[2021-12-28] MEDS: HYDRALAZINE HCL 50MG TABLET PO SCH ×2 (08:38→16:55)
[2021-12-28] MEDS: FAMOTIDINE 20MG TABLET PO SCH (08:38)
[2021-12-28] MEDS: FLUOXETINE HCL 10 MG CAPSULE PO SCH (08:38)
[2021-12-28] MEDS: HYDROXYCHLOROQUINE SULFATE 200MG TABLET PO SCH (08:38)
[2021-12-28] MEDS: DOCUSATE SODIUM 100MG CAPSULE PO SCH ×2 (08:38→16:54)
[2021-12-28] MEDS: CLOPIDOGREL 75MG TABLET PO SCH (08:38)
[2021-12-28] MEDS: LEVETIRACETAM 250MG TABLET PO SCH (08:38)
[2021-12-28] MEDS: AMLODIPINE 5MG TABLET PO SCH (08:39)
[2021-12-28] MEDS: GABAPENTIN 300MG CAPSULE PO SCH ×3 (08:39→16:54)
[2021-12-28] MEDS: POLYETHYLENE GLYCOL 3350 (17GM) 1 DOSE PACK PO SCH (08:39)
[2021-12-28 08:49] LABS: BASOPHILS % 0.9 % (0.0-2.0); EOSINOPHILS % 5.8 % (0.0-5.0); HEMATOCRIT. 24.2 % (36.0-48.0); HEMOGLOBIN. 8.2 g/dL (12.0-16.0); INR 2.1; LYMPHOCYTES % 27.2 % (20.0-50.0); MEAN CORPUSCULAR HEMOGLOBIN 29.1 pg (28.0-32.0); MEAN CORPUSCULAR VOLUME 85.4 fL (81.0-99.0); MEAN PLATELET VOLUME 7.2 fl (7.4-10.4); MONOCYTES % 10.2 % (2.0-8.0); NEUTROPHILS % 55.9 % (40.0-76.0); PLATELET 210 x1000/uL (130-400); PROTHROMBIN TIME 21.7 sec (9.6-11.0); RED BLOOD CELL COUNT 2.83 mill/uL (4.2-5.4); RED CELL DISTRIBUTION WIDTH 14.2 % (11.6-14.6)
[2021-12-28] MEDS: DIPHENHYDRAMINE HCL/ZINC ACET 28 GM CREAM TOP SCH (09:00)
[2021-12-28 09:08] LABS: PHOSPHORUS 4.2 mg/dL (2.5-4.9)
[2021-12-28] MEDS ORDERED: HYDROCODONE/ACETAMINOPHEN 5/325MG TABLET PO PRN (14:45)
[2021-12-28] MEDS ORDERED: QUET25TA PO (15:39)
[2021-12-28] MEDS ORDERED: FAMO20TA8 PO (15:39)
[2021-12-28] MEDS ORDERED: FLUOX10 PO (15:39)
[2021-12-28] MEDS ORDERED: HYDR-4135 PO (15:39)
[2021-12-28] MEDS ORDERED: MIRT-89 PO (15:39)
[2021-12-28] MEDS ORDERED: MELA3TAB40 PO (15:39)
[2021-12-28] MEDS: WARFARIN SODIUM 3MG TABLET PO SCH (17:00)
[2022-01-10] MEDS ORDERED: ZOLP5TAB2 MT ×2 (10:46→10:48)
[2022-01-10] MEDS ORDERED: LEVE1000 MT (10:46)
[2022-02-13] MEDS ORDERED: WARF3TAB58 PO (19:36)
== END 2021-12-28 20:00 | DRG 71 ==
LOC: ER 08:44 → 8WST 18:35 → EDBEDREQ 18:46 → EDBEDREQTM 18:46 → ENRESERV 20:39 → 7EST 12-20 00:12
PROVIDERS: ADMIT Internal Medicine; ATTEND Internal Medicine
PROC: 02HV33Z Insertion of Infusion Device into Superior Vena Cava, Percutaneous Approach (ICD-10-PCS; principal; 2021-12-14)
PROC: B5181ZA Fluoroscopy of Superior Vena Cava using Low Osmolar Contrast, Guidance (ICD-10-PCS; 2021-12-14)
PROC: B548ZZA Ultrasonography of Superior Vena Cava, Guidance (ICD-10-PCS; 2021-12-14)
DX: G93.41 Metabolic encephalopathy (principal); D68.61 Antiphospholipid syndrome; E44.0 Moderate protein-calorie malnutrition; N17.9 Acute kidney failure, unspecified; E87.1 Hypo-osmolality and hyponatremia; I69.959 Hemiplegia and hemiparesis following unspecified cerebrovascular disease affecting unspecified side; F33.1 Major depressive disorder, recurrent, moderate; R45.851 Suicidal ideations; F11.13 Opioid abuse with withdrawal; G93.40 Encephalopathy, unspecified; I12.9 Hypertensive chronic kidney disease with stage 1 through stage 4 chronic kidney disease, or unspecified chronic kidney disease; G40.909 Epilepsy, unspecified, not intractable, without status epilepticus; E11.22 Type 2 diabetes mellitus with diabetic chronic kidney disease; J44.9 Chronic obstructive pulmonary disease, unspecified; K44.9 Diaphragmatic hernia without obstruction or gangrene; M32.9 Systemic lupus erythematosus, unspecified; N18.30 Chronic kidney disease, stage 3 unspecified; E78.5 Hyperlipidemia, unspecified; G89.29 Other chronic pain; M06.9 Rheumatoid arthritis, unspecified; H54.8 Legal blindness, as defined in USA; K76.0 Fatty (change of) liver, not elsewhere classified; D63.1 Anemia in chronic kidney disease; F41.1 Generalized anxiety disorder; K59.00 Constipation, unspecified; Z20.822 Contact with and (suspected) exposure to COVID-19; Z68.28 Body mass index [BMI] 28.0-28.9, adult; Z88.0 Allergy status to penicillin; Z91.013 Allergy to seafood; Z91.040 Latex allergy status; Z79.899 Other long term (current) drug therapy; Z95.828 Presence of other vascular implants and grafts; Z79.01 Long term (current) use of anticoagulants; Z86.718 Personal history of other venous thrombosis and embolism; Z90.710 Acquired absence of both cervix and uterus; Z91.19 Patient's noncompliance with other medical treatment and regimen; Z82.49 Family history of ischemic heart disease and other diseases of the circulatory system
CPT/HCPCS: 36415; 36573; 70551; 71045; 76770; 80048; 80053; 80305; 80320; 81003; 82150; 83735; 83880; 84100; 84145; 84443; 84484; 84703; 85025; 86140; 87389; 87426; 93005; 97161; 97162; 97165; 97166; 99285; A6261; C1725; C1893; J1956; J3490; J7030; J7040; A4315; G0480

== ENCOUNTER 2022-01-28 18:52 | Inpatient (IN) | payer MEDICARE, MEDICAID ==
[~2022-01-28] VITALS: Ht 165.1 cm; Wt 91.2 kg
[~2022-01-28 18:52] MED LIST changes: -CLON0.1T PO; +FAMO20TA8 PO; +FLUOX10 PO; -GABA-532 MT; +HYDR-4135 PO; -HYDR100T26 PO; -KEPP250 PO; +LEVE1000 MT; +MELA3TAB40 PO; -METO25TA6 MT; +MIRT-89 PO; +PENT400T16 PO; +QUET25TA PO; +ZOLP5TAB2 MT
[2022-01-28] MEDS ORDERED: IOHEXOL-350 100 ML BOTTLE ONE (20:12)
[2022-01-28 20:33] LABS: EOSINOPHILS % 3.6 % (0.0-5.0); HEMATOCRIT. 24.6 % (36.0-48.0); LYMPHOCYTES % 11.1 % (20.0-50.0); MEAN CORPUSCULAR HEMOGLOBIN 27.8 pg (28.0-32.0); MEAN CORPUSCULAR VOLUME 85.2 fL (81.0-99.0); MEAN PLATELET VOLUME 7.5 fl (7.4-10.4); MONOCYTES % 5.3 % (2.0-8.0); PLATELET 84 x1000/uL (130-400); RED BLOOD CELL COUNT 2.89 mill/uL (4.2-5.4); RED CELL DISTRIBUTION WIDTH 13.5 % (11.6-14.6)
[2022-01-28 20:43] LABS: CHLORIDE 107 mEq/L (98-107)
[2022-01-28 20:54] LABS: CREATINE KINASE 26 IU/L (26-192); ETHANOL BLOOD < 10 mg/dL; LDL CHOLESTEROL 89 mg/dL (5-100)
[2022-01-28 20:55] LABS: INR 1.1; PROTHROMBIN TIME 12.2 sec (9.6-11.0)
[2022-01-28 21:26] LABS: CLARITY URINE CLOUDY (CLEAR); COLOR URINE YELLOW (YELLOW); KETONES URINE NEGATIVE (NEGATIVE); LEUKOCYTE ESTERASE URINE 2+ (NEGATIVE); NITRITE URINE NEGATIVE (NEGATIVE); OCCULT BLOOD URINE NEGATIVE (NEGATIVE); PH URINE 5.5 (4.5-8.0); PROTEIN URINE 2+ (NEGATIVE); SPECIFIC GRAVITY URINE 1.018 (1.005-1.030); UROBILINOGEN URINE 0.2 E.U./dL (0.2-1.0)
[2022-01-28 21:39] LABS: *AMPHETAMINES SCREEN URINE NEGATIVE (NEGATIVE); *BARBITURATES SCREEN URINE NEGATIVE (NEGATIVE); *BENZODIAZEPINES SCREEN URINE NEGATIVE (NEGATIVE); *COCAINE SCREEN URINE NEGATIVE (NEGATIVE); CANNABINOID URINE SCREEN NEGATIVE (NEGATIVE); METHADONE URINE SCREEN NEGATIVE (NEGATIVE); PHENCYCLIDINE URINE SCREEN NEGATIVE (NEGATIVE)
[2022-01-28 21:43] LABS: OPIATES URINE SCREEN PRESUMTIVE POSITIVE (NEGATIVE)
[2022-01-28] MEDS ORDERED: LEVOFLOXACIN 500MG PREMIX 100 ML IV ONE (22:00)
[2022-01-29 06:00] VITALS: BP 172/46
[2022-01-29 08:00] VITALS: BP 151/88
[2022-01-29] MEDS ORDERED: LORAZEPAM 0.5MG TABLET PO PRN (08:15)
[2022-01-29] MEDS ORDERED: IPRATROPIUM/ALBUTEROL 0.5-3(2.5)MG/3ML NEB HHN PRN (08:15)
[2022-01-29] MEDS ORDERED: NALOXONE HCL 0.4MG/ML VIAL IV PRN (08:15)
[2022-01-29] MEDS ORDERED: CLONIDINE 0.1MG TABLET PO PRN (08:15)
[2022-01-29] MEDS ORDERED: DOCUSATE SODIUM 100MG CAPSULE PO PRN (08:15)
[2022-01-29] MEDS ORDERED: ACETAMINOPHEN 325MG TABLET PO PRN (08:15)
[2022-01-29] MEDS: FAMOTIDINE 20MG TABLET PO SCH (10:43)
[2022-01-29] MEDS: LEVETIRACETAM 500MG/5ML CUP PO SCH ×2 (10:43→20:48)
[2022-01-29] MEDS: CLOPIDOGREL 75MG TABLET PO SCH (10:44)
[2022-01-29] MEDS: PANTOPRAZOLE 40MG DR TABLET PO SCH (10:44)
[2022-01-29] MEDS: AMLODIPINE 5MG TABLET PO SCH (10:47)
[2022-01-29] MEDS: LORAZEPAM 0.5MG TABLET PO SCH ×2 (10:49→16:38)
[2022-01-29] MEDS: HYDRALAZINE HCL 50MG TABLET PO SCH ×2 (10:49→20:40)
[2022-01-29] MEDS: ONDANSETRON HCL 4MG/2ML INJ IV PRN (10:49)
[2022-01-29] MEDS: FLUOXETINE HCL 10 MG CAPSULE PO SCH (10:50)
[2022-01-29] MEDS: HYDROXYCHLOROQUINE SULFATE 200MG TABLET PO SCH (10:50)
[2022-01-29] MEDS: PENTOXIFYLLINE 400MG TABLET PO SCH ×2 (11:04→16:38)
[2022-01-29 12:00] VITALS: BP 129/77
[2022-01-29] MEDS ORDERED: POTASSIUM CHLORIDE 20MEQ TABLET SR PO NR (14:00)
[2022-01-29] MEDS: ACETAMINOPHEN 325MG TABLET PO PRN (14:18)
[2022-01-29 16:11] VITALS: BP 121/44
[2022-01-29] MEDS ORDERED: WARFARIN SODIUM 5MG TABLET PO SCH (18:00)
[2022-01-29 20:00] VITALS: BP 128/82
[2022-01-29] MEDS: MELATONIN 3MG TABLET PO SCH (20:40)
[2022-01-29] MEDS: QUETIAPINE FUMARATE 25MG TABLET PO SCH (20:40)
[2022-01-29] MEDS: MIRTAZAPINE 15MG TABLET PO SCH (20:40)
[2022-01-29] MEDS: HYDROCODONE/ACETAMINOPHEN 5/325MG TABLET PO PRN (20:48)
[2022-01-29] MEDS: ZOLPIDEM TARTRATE 5MG TABLET PO PRN (23:39)
[2022-01-30] VITALS: BP 135/91
[2022-01-30 04:00] VITALS: BP 127/64
[2022-01-30 06:50] LABS: INR 1.2; PROTHROMBIN TIME 12.4 sec (9.6-11.0)
[2022-01-30 06:53] LABS: BASOPHILS % 1.2 % (0.0-2.0); EOSINOPHILS % 5.5 % (0.0-5.0); HEMATOCRIT. 25.8 % (36.0-48.0); HEMOGLOBIN. 8.5 g/dL (12.0-16.0); LYMPHOCYTES % 22.2 % (20.0-50.0); MEAN CORPUSCULAR HEMOGLOBIN 28.2 pg (28.0-32.0); MEAN CORPUSCULAR VOLUME 85.2 fL (81.0-99.0); MEAN PLATELET VOLUME 7.8 fl (7.4-10.4); MONOCYTES % 8.2 % (2.0-8.0); NEUTROPHILS % 62.9 % (40.0-76.0); PLATELET 85 x1000/uL (130-400); RED BLOOD CELL COUNT 3.03 mill/uL (4.2-5.4); RED CELL DISTRIBUTION WIDTH 13.7 % (11.6-14.6)
[2022-01-30 08:00] VITALS: BP 143/99
[2022-01-30] MEDS: CLOPIDOGREL 75MG TABLET PO SCH (08:34)
[2022-01-30] MEDS: PENTOXIFYLLINE 400MG TABLET PO SCH ×2 (08:34→16:40)
[2022-01-30] MEDS: HYDROXYCHLOROQUINE SULFATE 200MG TABLET PO SCH (08:34)
[2022-01-30] MEDS: HYDROCODONE/ACETAMINOPHEN 5/325MG TABLET PO PRN ×3 (08:35→18:44)
[2022-01-30] MEDS: AMLODIPINE 5MG TABLET PO SCH (08:35)
[2022-01-30] MEDS: FAMOTIDINE 20MG TABLET PO SCH (08:35)
[2022-01-30] MEDS: PANTOPRAZOLE 40MG DR TABLET PO SCH (08:36)
[2022-01-30] MEDS: HYDRALAZINE HCL 50MG TABLET PO SCH ×2 (08:36→20:04)
[2022-01-30] MEDS: LEVETIRACETAM 500MG/5ML CUP PO SCH ×2 (09:47→20:04)
[2022-01-30] MEDS: FLUOXETINE HCL 10 MG CAPSULE PO SCH (09:48)
[2022-01-30] MEDS: LORAZEPAM 0.5MG TABLET PO SCH ×2 (09:48→16:40)
[2022-01-30 12:16] VITALS: BP 129/90
[2022-01-30] MEDS: ONDANSETRON HCL 4MG/2ML INJ IV PRN (14:12)
[2022-01-30 16:00] VITALS: BP 133/92
[2022-01-30] MEDS ORDERED: WARFARIN SODIUM 5MG TABLET PO NR (18:00)
[2022-01-30 20:00] VITALS: BP 162/93
[2022-01-30] MEDS: MELATONIN 3MG TABLET PO SCH (20:04)
[2022-01-30] MEDS: QUETIAPINE FUMARATE 25MG TABLET PO SCH (20:05)
[2022-01-30] MEDS: MIRTAZAPINE 15MG TABLET PO SCH (20:07)
[2022-01-31] VITALS: BP 153/95
[2022-01-31 04:00] VITALS: BP 148/93
[2022-01-31 07:09] LABS: BASOPHILS % 1.3 % (0.0-2.0); EOSINOPHILS % 5.2 % (0.0-5.0); HEMATOCRIT. 26.2 % (36.0-48.0); HEMOGLOBIN. 8.5 g/dL (12.0-16.0); LYMPHOCYTES % 24.1 % (20.0-50.0); MEAN CORPUSCULAR VOLUME 86.1 fL (81.0-99.0); MEAN PLATELET VOLUME 7.7 fl (7.4-10.4); MONOCYTES % 8.1 % (2.0-8.0); NEUTROPHILS % 61.3 % (40.0-76.0); PLATELET 94 x1000/uL (130-400); RED BLOOD CELL COUNT 3.04 mill/uL (4.2-5.4); RED CELL DISTRIBUTION WIDTH 13.8 % (11.6-14.6)
[2022-01-31 07:18] LABS: INR 1.2; PROTHROMBIN TIME 12.7 sec (9.6-11.0)
[2022-01-31 07:56] VITALS: BP 162/97
[2022-01-31] MEDS: FLUOXETINE HCL 10 MG CAPSULE PO SCH (09:51)
[2022-01-31] MEDS: PANTOPRAZOLE 40MG DR TABLET PO SCH (09:51)
[2022-01-31] MEDS: AMLODIPINE 5MG TABLET PO SCH (09:51)
[2022-01-31] MEDS: CLOPIDOGREL 75MG TABLET PO SCH (09:51)
[2022-01-31] MEDS: HYDROXYCHLOROQUINE SULFATE 200MG TABLET PO SCH (09:51)
[2022-01-31] MEDS: LORAZEPAM 0.5MG TABLET PO SCH ×2 (09:51→17:00)
[2022-01-31] MEDS: PENTOXIFYLLINE 400MG TABLET PO SCH ×2 (09:51→17:44)
[2022-01-31] MEDS: FAMOTIDINE 20MG TABLET PO SCH (09:51)
[2022-01-31] MEDS: HYDRALAZINE HCL 50MG TABLET PO SCH ×2 (09:51→20:19)
[2022-01-31] MEDS: LEVETIRACETAM 500MG/5ML CUP PO SCH ×2 (09:51→20:19)
[2022-01-31] MEDS: HYDROCODONE/ACETAMINOPHEN 5/325MG TABLET PO PRN ×2 (11:15→20:27)
[2022-01-31 12:30] VITALS: BP 147/91
[2022-01-31 16:04] VITALS: BP 139/93
[2022-01-31] MEDS ORDERED: WARFARIN SODIUM 5MG TABLET PO NR (18:00)
[2022-01-31 20:00] VITALS: BP 147/100
[2022-01-31] MEDS: MELATONIN 3MG TABLET PO SCH (20:20)
[2022-01-31] MEDS: QUETIAPINE FUMARATE 25MG TABLET PO SCH (20:20)
[2022-01-31] MEDS: MIRTAZAPINE 15MG TABLET PO SCH (20:20)
[2022-02-01] VITALS: BP 109/61
[2022-02-01 04:00] VITALS: BP 156/90
[2022-02-01 08:26] VITALS: BP 196/93
[2022-02-01] MEDS: PENTOXIFYLLINE 400MG TABLET PO SCH ×2 (08:58→17:36)
[2022-02-01] MEDS: PANTOPRAZOLE 40MG DR TABLET PO SCH (08:58)
[2022-02-01] MEDS: HYDROXYCHLOROQUINE SULFATE 200MG TABLET PO SCH (08:58)
[2022-02-01] MEDS: FLUOXETINE HCL 10 MG CAPSULE PO SCH (08:58)
[2022-02-01] MEDS: LORAZEPAM 0.5MG TABLET PO SCH ×2 (08:59→17:36)
[2022-02-01] MEDS: HYDRALAZINE HCL 50MG TABLET PO SCH ×2 (08:59→21:32)
[2022-02-01] MEDS: FAMOTIDINE 20MG TABLET PO SCH (08:59)
[2022-02-01] MEDS: LEVETIRACETAM 500MG/5ML CUP PO SCH ×2 (08:59→21:33)
[2022-02-01] MEDS: CLOPIDOGREL 75MG TABLET PO SCH (09:00)
[2022-02-01] MEDS: AMLODIPINE 5MG TABLET PO SCH (09:01)
[2022-02-01 11:52] VITALS: BP 144/89
[2022-02-01] MEDS: ACETAMINOPHEN 325MG TABLET PO PRN (12:49)
[2022-02-01 15:56] VITALS: BP 132/68
[2022-02-01] MEDS ORDERED: WARFARIN SODIUM 3MG TABLET PO SCH (18:00)
[2022-02-01 20:00] VITALS: BP 141/88
[2022-02-01] MEDS: ONDANSETRON HCL 4MG/2ML INJ IV PRN (20:03)
[2022-02-01] MEDS: MELATONIN 3MG TABLET PO SCH ×2 (21:00→21:32)
[2022-02-01] MEDS: QUETIAPINE FUMARATE 25MG TABLET PO SCH (21:32)
[2022-02-01] MEDS: MIRTAZAPINE 15MG TABLET PO SCH (21:32)
[2022-02-01] MEDS: ZOLPIDEM TARTRATE 5MG TABLET PO PRN (21:44)
[2022-02-02] VITALS: BP 176/96
[2022-02-02] MEDS: HYDROCODONE/ACETAMINOPHEN 5/325MG TABLET PO PRN ×2 (00:49→16:39)
[2022-02-02 04:00] VITALS: BP 122/81
[2022-02-02 08:00] VITALS: BP 139/69
[2022-02-02] MEDS: HYDRALAZINE HCL 50MG TABLET PO SCH (09:00)
[2022-02-02] MEDS: PENTOXIFYLLINE 400MG TABLET PO SCH ×2 (09:00→16:39)
[2022-02-02] MEDS: LEVETIRACETAM 500MG/5ML CUP PO SCH (10:02)
[2022-02-02] MEDS: AMLODIPINE 5MG TABLET PO SCH (10:02)
[2022-02-02] MEDS: PANTOPRAZOLE 40MG DR TABLET PO SCH (10:03)
[2022-02-02] MEDS: LORAZEPAM 0.5MG TABLET PO SCH ×2 (10:03→16:41)
[2022-02-02] MEDS: FAMOTIDINE 20MG TABLET PO SCH (10:03)
[2022-02-02] MEDS: HYDROXYCHLOROQUINE SULFATE 200MG TABLET PO SCH (10:04)
[2022-02-02] MEDS: CLOPIDOGREL 75MG TABLET PO SCH (10:04)
[2022-02-02] MEDS: FLUOXETINE HCL 10 MG CAPSULE PO SCH (10:04)
[2022-02-02] MEDS: ACETAMINOPHEN 325MG TABLET PO PRN (10:04)
[2022-02-02 12:00] VITALS: BP 159/77
[2022-02-02 16:00] VITALS: BP 131/74
[2022-02-02] MEDS ORDERED: WARFARIN SODIUM 5MG TABLET PO SCH (18:00)
[2022-02-02 18:33] VITALS: BP 137/87
[2022-02-03] MEDS ORDERED: FAMOTIDINE 20MG TABLET PO SCH (09:00)
== END 2022-02-02 19:59 | DRG 65 ==
LOC: ER 18:52 → MICUSO 21:41 → 6WST 01-29 05:20
PROVIDERS: ADMIT Internal Medicine; ATTEND Internal Medicine
DX: I63.9 Cerebral infarction, unspecified (principal); D68.61 Antiphospholipid syndrome; D69.6 Thrombocytopenia, unspecified; D63.1 Anemia in chronic kidney disease; I12.9 Hypertensive chronic kidney disease with stage 1 through stage 4 chronic kidney disease, or unspecified chronic kidney disease; G40.909 Epilepsy, unspecified, not intractable, without status epilepticus; N18.9 Chronic kidney disease, unspecified; E87.6 Hypokalemia; R32 Unspecified urinary incontinence; H54.3 Unqualified visual loss, both eyes; M19.90 Unspecified osteoarthritis, unspecified site; K76.0 Fatty (change of) liver, not elsewhere classified; F32.A Depression, unspecified; Z87.442 Personal history of urinary calculi; Z86.718 Personal history of other venous thrombosis and embolism; Z74.01 Bed confinement status; Z88.0 Allergy status to penicillin; Z91.013 Allergy to seafood; Z91.040 Latex allergy status; Z88.8 Allergy status to other drugs, medicaments and biological substances; Z79.899 Other long term (current) drug therapy; Z79.01 Long term (current) use of anticoagulants; Z79.02 Long term (current) use of antithrombotics/antiplatelets; Z86.73 Personal history of transient ischemic attack (TIA), and cerebral infarction without residual deficits
CPT/HCPCS: 36415; 70496; 70498; 70551; 71045; 80048; 80053; 80305; 80320; 81003; 82550; 82962; 83721; 84484; 85025; 93005; 99291; J1956; J2405; Q9967; G0480

== ENCOUNTER 2022-03-19 13:53 | Emergency (ER) | payer MEDICARE, MEDICAID ==
[~2022-03-19] VITALS: Ht 172.7 cm; Wt 102.0 kg
[~2022-03-19 13:53] MED LIST changes: +AZAT50TA24 PO; -FAMO20TA8 PO; -HYDR-4135 PO; +P20 PO; +WARF3TAB58 PO
[2022-03-19 15:29] LABS: BASOPHILS % 0.8 % (0.0-2.0); EOSINOPHILS % 3.1 % (0.0-5.0); HEMOGLOBIN. 9.5 g/dL (12.0-16.0); LYMPHOCYTES % 38.9 % (20.0-50.0); MEAN CORPUSCULAR HEMOGLOBIN 29.6 pg (28.0-32.0); MEAN CORPUSCULAR VOLUME 90.5 fL (81.0-99.0); MEAN PLATELET VOLUME 7.6 fl (7.4-10.4); NEUTROPHILS % 53.2 % (40.0-76.0); PLATELET 156 x1000/uL (130-400); RED CELL DISTRIBUTION WIDTH 17.6 % (11.6-14.6)
[2022-03-19 15:32] LABS: CHLORIDE 107 mEq/L (98-107)
[2022-03-19 15:42] LABS: ETHANOL BLOOD < 10 mg/dL
[2022-03-19 15:50] LABS: HCG SCREEN NEGATIVE
[2022-03-20 04:00] VITALS: BP 143/88
== END 2022-03-20 05:30 | disposition home or self-care (01) ==
LOC: ER 13:53
DX: G89.29 Other chronic pain (principal); M79.642 Pain in left hand; G40.909 Epilepsy, unspecified, not intractable, without status epilepticus; M32.9 Systemic lupus erythematosus, unspecified; I10 Essential (primary) hypertension; M19.90 Unspecified osteoarthritis, unspecified site; F32.A Depression, unspecified; Z86.73 Personal history of transient ischemic attack (TIA), and cerebral infarction without residual deficits; Z74.01 Bed confinement status; Z88.8 Allergy status to other drugs, medicaments and biological substances; Z91.040 Latex allergy status; Z91.013 Allergy to seafood
CPT/HCPCS: 36415; 71045; 80053; 80320; 83880; 84484; 84703; 85025; 93005; 99285; G0480

== ENCOUNTER 2022-06-30 11:18 | Emergency (ER) | payer MEDICARE, MEDICAID ==
[~2022-06-30] VITALS: Ht 162.6 cm; Wt 82.0 kg
[2022-06-30 12:33] LABS: CHLORIDE 110 mEq/L (98-107)
[2022-06-30 12:36] LABS: BASOPHILS % 0.8 % (0.0-2.0); HEMATOCRIT. 33.5 % (36.0-48.0); HEMOGLOBIN. 10.9 g/dL (12.0-16.0); LYMPHOCYTES % 24.9 % (20.0-50.0); MEAN CORPUSCULAR VOLUME 89.5 fL (81.0-99.0); MEAN PLATELET VOLUME 7.9 fl (7.4-10.4); MONOCYTES % 7.5 % (2.0-8.0); NEUTROPHILS % 63.8 % (40.0-76.0); PLATELET 170 x1000/uL (130-400); RED BLOOD CELL COUNT 3.74 mill/uL (4.2-5.4); RED CELL DISTRIBUTION WIDTH 14.1 % (11.6-14.6)
[2022-06-30] MEDS ORDERED: MORPHINE SULFATE 2 MG/ML CPJ (NOT FOR IM USE) IV ONE (13:15)
[2022-06-30] MEDS ORDERED: SODIUM CHLORIDE 0.9% 1,000 ML IV ONE (13:45)
[2022-06-30] MEDS ORDERED: HYDR-4001 MT ×2 (15:45)
[2022-06-30] MEDS ORDERED: P20 MT ×2 (15:45)
[2022-06-30 15:57] LABS: CLARITY URINE CLEAR (CLEAR); COLOR URINE YELLOW (YELLOW); KETONES URINE NEGATIVE (NEGATIVE); LEUKOCYTE ESTERASE URINE 2+ (NEGATIVE); NITRITE URINE POSITIVE (NEGATIVE); OCCULT BLOOD URINE NEGATIVE (NEGATIVE); PH URINE 5.5 (4.5-8.0); PROTEIN URINE 2+ (NEGATIVE); SPECIFIC GRAVITY URINE 1.016 (1.005-1.030); UROBILINOGEN URINE 0.2 E.U./dL (0.2-1.0)
[2022-06-30] MEDS ORDERED: CEFTRIAXONE 2 G PREMIX 50 ML IV ONE (16:30)
[2022-06-30] MEDS ORDERED: KETOROLAC 15MG/ML VIAL IV ONE (16:45)
[2022-06-30] MEDS ORDERED: CEPH500C2 MT (17:29)
[2022-06-30] MEDS ORDERED: CEFTRIAXONE 2 G in DEXTROSE 5% WATER 50 ML IV NR (17:30)
[2022-06-30] MEDS ORDERED: PHENAZOPYRIDINE HCL 100MG TABLET PO NR (17:30)
[2022-06-30] MEDS ORDERED: PHEN-815 MT (17:31)
[2022-06-30] MEDS ORDERED: ACETAMINOPHEN 325MG TABLET PO ONE (21:45)
[2022-07-01] MEDS ORDERED: AMLODIPINE 5MG TABLET PO ONE (04:45)
[2022-07-01 05:00] VITALS: BP 145/86
== END 2022-07-01 05:04 | disposition home or self-care (01) ==
LOC: ER 11:18
DX: N39.0 Urinary tract infection, site not specified (principal); R68.83 Chills (without fever); M54.9 Dorsalgia, unspecified; M19.90 Unspecified osteoarthritis, unspecified site; I10 Essential (primary) hypertension; R56.9 Unspecified convulsions; M32.9 Systemic lupus erythematosus, unspecified; Z88.0 Allergy status to penicillin; Z88.8 Allergy status to other drugs, medicaments and biological substances; Z86.73 Personal history of transient ischemic attack (TIA), and cerebral infarction without residual deficits; Z91.013 Allergy to seafood; Z91.040 Latex allergy status
CPT/HCPCS: 36415; 80053; 81003; 83605; 85025; 96361; 96365; 96366; 96375; 99285; C1893; J0696; J1885; J2270; J7030; J7060; A4315

== ENCOUNTER 2022-07-08 10:29 | Emergency (ER) | payer OTHER, MEDICAID ==
[~2022-07-08] VITALS: Ht 165.1 cm; Wt 95.0 kg
[~2022-07-08 10:29] MED LIST changes: +CEPH500C2 MT; +PHEN-815 MT
[2022-07-08 13:59] LABS: CHLORIDE 109 mEq/L (98-107)
[2022-07-08 14:02] LABS: INR 2.1; PROTHROMBIN TIME 21.7 sec (9.6-11.0)
[2022-07-08 14:26] LABS: HCG SCREEN NEGATIVE
[2022-07-08] MEDS: MORPHINE SULFATE 4 MG/ML CPJ (NOT FOR IM USE) IV NR ×2 (14:41→15:23)
[2022-07-08] MEDS ORDERED: T3 PO (15:04)
[2022-07-08 15:12] LABS: BASOPHILS % 0.5 % (0.0-2.0); EOSINOPHILS % 1.3 % (0.0-5.0); HEMOGLOBIN. 10.2 g/dL (12.0-16.0); LYMPHOCYTES % 20.2 % (20.0-50.0); MEAN CORPUSCULAR HEMOGLOBIN 29.8 pg (28.0-32.0); MEAN CORPUSCULAR VOLUME 93.4 fL (81.0-99.0); MEAN PLATELET VOLUME 7.3 fl (7.4-10.4); MONOCYTES % 6.7 % (2.0-8.0); NEUTROPHILS % 71.3 % (40.0-76.0); PLATELET 212 x1000/uL (130-400); RED BLOOD CELL COUNT 3.42 mill/uL (4.2-5.4); RED CELL DISTRIBUTION WIDTH 14.2 % (11.6-14.6)
[2022-07-08 15:23] VITALS: BP 157/103
== END 2022-07-08 17:47 | disposition home or self-care (01) ==
LOC: ER 10:33
DX: M54.50 Low back pain, unspecified (principal); I69.351 Hemiplegia and hemiparesis following cerebral infarction affecting right dominant side; G82.50 Quadriplegia, unspecified; M19.90 Unspecified osteoarthritis, unspecified site; F32.A Depression, unspecified; I10 Essential (primary) hypertension; M32.9 Systemic lupus erythematosus, unspecified; G40.909 Epilepsy, unspecified, not intractable, without status epilepticus; Z74.01 Bed confinement status; Z88.8 Allergy status to other drugs, medicaments and biological substances; Z91.040 Latex allergy status; Z91.013 Allergy to seafood; Z88.0 Allergy status to penicillin
CPT/HCPCS: 36415; 72131; 80053; 84703; 85025; 85610; 96374; 99285; J2270

== ENCOUNTER 2022-07-13 13:13 | Emergency (ER) | payer OTHER, MEDICAID ==
[~2022-07-13] VITALS: Ht 162.6 cm; Wt 102.0 kg
[~2022-07-13 13:13] MED LIST changes: +T3 PO
[2022-07-13] MEDS ORDERED: MORPHINE SULFATE 10 MG/ML CPJ IM ONE (14:30)
[2022-07-13 17:53] LABS: CLARITY URINE CLEAR (CLEAR); COLOR URINE YELLOW (YELLOW); KETONES URINE NEGATIVE (NEGATIVE); LEUKOCYTE ESTERASE URINE TRACE (NEGATIVE); NITRITE URINE NEGATIVE (NEGATIVE); OCCULT BLOOD URINE NEGATIVE (NEGATIVE); PH URINE 5.5 (4.5-8.0); PROTEIN URINE 2+ (NEGATIVE); SPECIFIC GRAVITY URINE 1.019 (1.005-1.030); UROBILINOGEN URINE 0.2 E.U./dL (0.2-1.0)
[2022-07-13] MEDS ORDERED: MORPHINE SULFATE 10 MG/ML CPJ IM NR (18:00)
[2022-07-13] MEDS ORDERED: HYDROCODONE/ACETAMINOPHEN 10/325MG TABLET PO ONE (21:00)
[2022-07-13 21:28] VITALS: BP 132/77
== END 2022-07-13 18:55 | disposition home or self-care (01) ==
LOC: ER 13:13
DX: M54.9 Dorsalgia, unspecified (principal); R56.9 Unspecified convulsions; I10 Essential (primary) hypertension; F32.9 Major depressive disorder, single episode, unspecified; M19.90 Unspecified osteoarthritis, unspecified site; H54.7 Unspecified visual loss; Z88.0 Allergy status to penicillin; Z88.8 Allergy status to other drugs, medicaments and biological substances; Z86.73 Personal history of transient ischemic attack (TIA), and cerebral infarction without residual deficits; Z91.040 Latex allergy status; Z91.013 Allergy to seafood
CPT/HCPCS: 81003; 96372; 99283; C1893; J2270